=== PATIENT | female | born 1965 | race Caucasian/White ===

== ENCOUNTER 2020-02-27 13:17 | Emergency (ER) | payer OTHER, SELFPAY ==
[2020-02-27 13:29] VITALS: BP 130/89; PULSE 77; RESP 18; TEMP 37.1; O2SAT 100
--- NOTE | 2020-02-27 13:37 | ED.ABDPAIN ---
HPI - Abdominal Pain General Chief Complaint: Abdominal Pain Stated Complaint: Abd pain; nausea Time Seen by Provider: 02/27/20 13:39 Source: patient and RN notes reviewed Mode of arrival: ambulatory Limitations: no limitations History of Present Illness HPI narrative: This is a 54 years old female presents to the office for an evaluation of acute onset of right side abdominal pain since 4 AM this morning. Pain is intermittent with sharp shooting dependent on positions; associated with nausea. Coughing moving walking very exacerbated pain. Denies any urinary symptoms. Denies history of kidney stones. Rate pain 02/28. Related Data Home Medications Medication Instructions Recorded Confirmed alprazolam 0.5 mg TID PRN 02/27/20 02/27/20 amlodipine 10 mg DAILY 02/27/20 02/27/20 atorvastatin 40 mg DAILY 02/27/20 02/27/20 bupropion HCl 150 mg PO DAILY 02/27/20 02/27/20 citalopram 40 mg DAILY 02/27/20 02/27/20 furosemide 20 mg DAILY 02/27/20 02/27/20 losartan 100 mg DAILY 02/27/20 02/27/20 metoprolol succinate 50 mg PO DAILY 02/27/20 02/27/20 omeprazole 20 mg DAILY 02/27/20 02/27/20 trazodone 02/27/20 Allergies Allergy/AdvReac Type Severity Reaction Status Date / Time No Known Allergies Allergy Unknown Verified 02/27/20 13:32 Review of Systems Review of Systems: Narrative: CONSTITUTIONAL: Denies fever. Reports feeling hot ENT: Denies congestion CARDIOVASCULAR: Denies chest pain RESPIRATORY: Denies dyspnea GASTROINTESTINAL: Reports abdominal pain, nausea. Denies vomiting, diarrhea. GENITOURINARY: Denies urinary symptoms or discharge SKIN: Denies rash MUSCULOSKELETAL: Reports right upper back NEUROLOGIC: Denies lightheaded All other systems reviewed are negative, except as documented in HPI. [facility] Past Medical History Medical History (Updated 02/27/20 @ 13:54 by MINAL Choe) Depression with anxiety GERD (gastroesophageal reflux disease) HLD (hyperlipidemia) HTN (hypertension) Sleep apnea Family History Family History Father Hypertension Social History Social History Smoking status: Smoker, status unknown Alcohol intake: current Gender identity (if verbalized by the patient): Female Comments At time of signature, I agree with nursing past medical, surgical, social and family history. There is no relevant family history pertinent to the presenting complaint. Exam Narrative: Exam Narrative: GENERAL: This is a well-nourished, well-developed patient, in no apparent distress. CARDIOVASCULAR: Regular rate and rhythm without murmurs, gallops, or rubs. RESPIRATORY: Clear to auscultation. Breath sounds equal bilaterally. No wheezes, rales, or rhonchi. GASTROINTESTINAL: Abdomen soft, tenderness to palpation of right upper and lower quadrant with a little rebound tenderness, nondistended. Bowel sounds are active. Patient is guarding her stomach and appears in pain when ask to change position from sitting to lying down on stretcher. SKIN: warm, intact with no suspicious lesions or rash, good texture and turgor. NEURO: awake, alert, and oriented to person, place and time. There were no obvious focal neurologic abnormalities. Steady gait BACK: No flank tenderness. Courtney Coma Scale Eye Opening: Spontaneous 4 Courtney Coma Scale Motor: Obeys Commands 6 Courtney Coma Scale Verbal: Oriented 5 Course Vital Signs Vital signs: Vital Signs Temperature 98.8 F 02/27/20 13:29 Pulse Rate 77 02/27/20 13:29 Respiratory Rate 18 02/27/20 13:29 Blood Pressure 130/89 02/27/20 13:29 Pulse Oximetry 100 02/27/20 13:29 Temperature 98.8 F 02/27/20 13:29 Pulse Rate 77 02/27/20 13:29 Respiratory Rate 18 02/27/20 13:29 Blood Pressure 130/89 02/27/20 13:29 Pulse Oximetry 100 02/27/20 13:29 Transfer Transfered to: [facility] Transfer rationale: diagnostic test Accepti
== END 2020-02-27 13:51 | disposition short-term general hospital (02) ==
PROVIDERS: Emergency Provider Nurse Practitioner; PCP Family Medicine
DX: R10.31 Right lower quadrant pain (principal); K21.9 Gastro-esophageal reflux disease without esophagitis; E78.5 Hyperlipidemia, unspecified; I10 Essential (primary) hypertension; G47.30 Sleep apnea, unspecified; F41.9 Anxiety disorder, unspecified; F32.9 Major depressive disorder, single episode, unspecified
CPT/HCPCS: 99212; G0463

== ENCOUNTER 2020-02-27 14:12 | Emergency (ER) | payer OTHER, SELFPAY ==
--- NOTE | ~2020-02-27 | US_ITS ---
US right upper quadrant DATE: 02/27/2020 15:15 INDICATION: Right upper quadrant abdominal pain. Nausea. TECHNIQUE: Real-time imaging of the liver, gallbladder, pancreas COMPARISON: 05/27/2014 CTA abdomen FINDINGS: There are multiple dependent gallstones measuring approximately 5 mm each. There is gallbla dder wall thickening, measuring approximately 4.5 mm. Cholecystitis or chronic cholecystitis is sugge sted. Consider radionuclide hepatobiliary scan if further evaluation for acute cholecystitis is kenyon ed. No hepatic space-occupying mass lesion. Normal hepatopedal portal venous flow is noted. The pancreas is not optimally evaluated due to interference from bowel gas. IMPRESSION: Cholelithiasis and gallbladder wall thickening; consider acute versus chronic cholecystit is Reviewed, dictated and finalized at [facility]. Reviewed, dictated and finalized at [facility]. IMPRESSION: Cholelithiasis and gallbladder wall thickening; consider acute vers us chronic cholecystitis
[2020-02-27 14:15] VITALS: BP 132/79; PULSE 73; RESP 16; TEMP 35.9; O2SAT 99
[2020-02-27 14:30] LABS: Basophils Percent Auto 0.6 % (0.2-1.2); Eosinophils Absolute Auto 0.1 K/mm3 (0-0.3); Eosinophils Percent Auto 1.3 % (0-4.4); Hematocrit 38.1 % (37.0-47.0); Hemoglobin 12.8 g/dL (12.0-15.0); Immature Granulocyte Absolute 0.01 K/mm3 (0.00-0.031); Immature Granulocyte Percent A 0.2 % (0-0.5); Lymphocytes Absolute Auto 1.99 K/mm3 (0.9-3.2); Lymphocytes Percent Auto 37.5 % (18.3-44.2); Mean Corpuscular HGB Conc 33.6 g/dl (32-36); Mean Corpuscular Hemoglobin 35.7 pg (26-34); Mean Corpuscular Volume 106.1 fl (80-100); Monocytes Absolute Auto 0.5 K/mm3 (0.1-0.6); Monocytes Percent Auto 9.8 % (2.6-8.5); Neutrophils Absolute Auto 2.7 K/mm3 (1.3-6.7); Neutrophils Percent Auto 50.6 % (45.5-73.1); Platelet Count Result 294 k/mm3 (150-375); Red Blood Count 3.59 M/mm3 (4.2-5.4); Red Cell Distribution Width 13.1 % (11.5-14.5); White Blood Count 5.3 K/mm3 (4.5-10.0)
[2020-02-27 14:41] LABS: Alanine Aminotransferase 29 U/L (4-35); Albumin Level 4.4 g/dL (3.5-5.1); Alkaline Phosphatase 92 U/L (38-126); Aspartate Amino Transferase 42 U/L (14-36); Bilirubin,Total 0.3 mg/dL (0.2-1.3); Blood Urea Nitrogen 19 mg/dL (7-17); Calcium 9.1 mg/dL (8.4-10.2); Carbon Dioxide 25 mmol/L (22-30); Chloride 105 mmol/L (98-107); Estimated CRCL calculation 70 ml/min; Estimated Glomerular Filt Rate > 60; Glucose 94 mg/dL (65-105); Lipase 85 U/L (23-300); Potassium 4.1 mmol/L (3.4-5.0); Sodium 138 mmol/L (137-145)
[2020-02-27 14:44] LABS: Add Urine Microscopic? YES; Appearance Urine Clear (Clear); Bilirubin Urine Negative (Negative); Blood Urine Negative (Negative); Color Urine Yellow (Yellow); Glucose Urine UA Negative (Negative); Ketones Urine Negative (Negative); Leukocyte Esterase Ur 3+ LEU/UL (Negative); Mucus Urine Rare /lpf; Nitrate Urine Negative (Negative); Protein Urine Negative (Negative); RBC Urine 0-2 /hpf (0-2); Specific Grav Ur 1.021 (1.001-1.035); Squamous Epithelial Cell Urine Many /hpf (Few); Urobilinogen Urine Negative mg/dL (<2.0)
--- NOTE | 2020-02-27 14:53 | ED.ABDPAIN ---
HPI - Abdominal Pain General Chief Complaint: Abdominal Pain Stated Complaint: abdominal pain Time Seen by Provider: 02/27/20 14:28 Source: patient Mode of arrival: ambulatory Limitations: no limitations History of Present Illness HPI narrative: This is a 54 year old female that presents to the ER for RUQ pain since this morning. Reports sharp pain. Associated with nausea. Was seen at the urgent care for this earlier this morning and sent here for further evaluation. Denies fever, chest pain, shortness of breath, vomiting, dysuria or hematuria. Related Data Home Medications Medication Instructions Recorded Confirmed alprazolam 0.5 mg TID PRN 02/27/20 02/27/20 amlodipine 10 mg DAILY 02/27/20 02/27/20 atorvastatin 40 mg DAILY 02/27/20 02/27/20 bupropion HCl 150 mg PO DAILY 02/27/20 02/27/20 buspirone 15 mg PO BID 02/27/20 02/27/20 citalopram 40 mg DAILY 02/27/20 02/27/20 furosemide 20 mg DAILY 02/27/20 02/27/20 losartan 100 mg DAILY 02/27/20 02/27/20 metoprolol succinate 50 mg PO DAILY 02/27/20 02/27/20 omeprazole 20 mg DAILY 02/27/20 02/27/20 spironolactone 50 mg PO DAILY 02/27/20 trazodone 100 mg HS 02/27/20 02/27/20 Allergies Allergy/AdvReac Type Severity Reaction Status Date / Time No Known Allergies Allergy Unknown Verified 02/27/20 14:24 Review of Systems Review of Systems: Narrative: CONSTITUTIONAL: Denies fever CARDIOVASCULAR: Denies chest pain RESPIRATORY: Denies dyspnea. GASTROINTESTINAL: Reports abdominal pain, nausea. Denies vomiting, or diarrhea. GENITOURINARY: Denies dysuria or hematuria. All systems reviewed & are unremarkable except as noted in HPI and below PMFSH Past Medical History Medical History (Updated 02/27/20 @ 16:43 by Edwina Bhatia PA-C) Depression with anxiety GERD (gastroesophageal reflux disease) HLD (hyperlipidemia) HTN (hypertension) Sleep apnea Social History Social History Smoking status: Smoker, status unknown Alcohol intake: current Gender identity (if verbalized by the patient): Female Exam Narrative: Exam Narrative: GENERAL: Well-appearing, well-nourished, and in no acute distress. HEAD: Normocephalic, atraumatic. EYES: EOMI. CHEST: Clear to auscultation. No respiratory distress. No wheezes rales or rhonchi HEART: Regular rate and rhythm. No murmur heard. Normal peripheral pulses. ABDOMEN: Soft, nondistended, normal active bowel sounds. Tender to palpation of the right upper quadrant, without guarding. No CVA tenderness EXTREMITIES: Normal range of motion. No edema. SKIN: Warm, dry, no rash. NEURO: No focal deficits. Alert and oriented x3. PSYCH: Normal mood and affect Course Consultations Consultation #1: Spoke with surgeon, Dr. Wick about patient and work-up. Patient will be started on oral antibiotics and given pain medication. She is to follow-up outpatient. Date: 02/27/20 Time: 16:42 Vital Signs Vital signs: Vital Signs Temperature 96.7 F L 02/27/20 14:15 Pulse Rate 73 02/27/20 14:15 Respiratory Rate 16 02/27/20 14:15 Blood Pressure 132/79 02/27/20 14:15 Pulse Oximetry 99 02/27/20 14:15 Temperature 96.7 F L 02/27/20 14:15 Pulse Rate 69 02/27/20 16:12 Respiratory Rate 16 02/27/20 14:15 Blood Pressure 144/89 H 02/27/20 16:12 Pulse Oximetry 93 02/27/20 16:12 MDM - Abdominal Pain MDM Narrative Medical decision making narrative: Patient presents the emergency department for right upper quadrant pain since this morning. Patient is afebrile and nontoxic-appearing. CBC is without leukocytosis. Metabolic panel with mildly elevated AST, otherwise no acute changes. UA without evidence of infection. Right upper quadrant ultrasound shows cholelithiasis and gallbladder wall thickening. Patient given IV pain medication and antiemetic with improvement. Spoke with surgeon, Dr. Wick about patient and work-up. Patient will be started on oral antibiotics
--- NOTE | 2020-02-27 15:06 | PC.NURSE ---
Pt to imaging
[2020-02-27] MEDS: MORPHINE SULFATE 4 MG/ML INJ IV PUSH (15:13)
[2020-02-27] MEDS: ONDANSETRON INJ 4 MG/2 ML VIAL IV PUSH (15:14)
[2020-02-27 16:12] VITALS: BP 144/89; PULSE 69; O2SAT 93
[2020-02-27 16:58] VITALS: BP 140/70; PULSE 70; RESP 20; O2SAT 99
== END 2020-02-27 17:00 | disposition home or self-care (01) ==
PROVIDERS: Emergency Provider Family Medicine; PCP Family Medicine
DX: K80.50 Calculus of bile duct without cholangitis or cholecystitis without obstruction (principal); F41.8 Other specified anxiety disorders; K21.9 Gastro-esophageal reflux disease without esophagitis; E78.5 Hyperlipidemia, unspecified; I10 Essential (primary) hypertension; G47.30 Sleep apnea, unspecified
CPT/HCPCS: 36415; 76705; 80053; 81001; 83690; 85025; 96365; 96375; 99284; J0131; J2270; J2405

== ENCOUNTER 2020-03-05 08:24 | Outpatient (CLI) | payer OTHER, SELFPAY ==
--- NOTE | 2020-03-05 08:27 | ECG_ITS ---
Measurements Intervals [place] Rate: 63 P: 12 WV: 181 QRS: -1 QRSD: 88 T: 12 QT: 412 QTc: 424 Interpretive Statements SINUS RHYTHM BORDERLINE T WAVE ABNORMALITY- ANTERIOR LEADS BORDERLINE ECG Electronically Signed On 03-05-2020 8:58:13 CDT by Kelvin Nash D.O.
[2020-03-05 08:45] LABS: Hematocrit 38.4 % (37.0-47.0); Hemoglobin 13.3 g/dL (12.0-15.0); Mean Corpuscular HGB Conc 34.6 g/dl (32-36); Mean Corpuscular Hemoglobin 36.2 pg (26-34); Mean Corpuscular Volume 104.6 fl (80-100); Mean Platelet Volume 9.8 fl (7.4-10.4); Platelet Count Result 270 k/mm3 (150-375); Red Blood Count 3.67 M/mm3 (4.2-5.4); Red Cell Distribution Width 12.6 % (11.5-14.5); White Blood Count 4.1 K/mm3 (4.5-10.0)
[2020-03-05 09:19] LABS: Alanine Aminotransferase 29 U/L (4-35); Alkaline Phosphatase 73 U/L (38-126); Amylase 56 U/L (30-110); Aspartate Amino Transferase 40 U/L (14-36); Bilirubin,Total 0.2 mg/dL (0.2-1.3); Lipase 47 U/L (23-300)
[2020-03-05 09:21] LABS: Blood Urea Nitrogen 22 mg/dL (7-17); Calcium 9.2 mg/dL (8.4-10.2); Carbon Dioxide 28 mmol/L (22-30); Chloride 102 mmol/L (98-107); Estimated Glomerular Filt Rate 58; Glucose 92 mg/dL (65-105); Potassium 4.4 mmol/L (3.4-5.0); Sodium 137 mmol/L (137-145)
== END 2020-03-05 08:25 | disposition home or self-care (01) ==
LOC: ANHSURGERY 08:27
PROVIDERS: Anesthesiology; PCP Family Medicine; Visit Provider Surgery
DX: Z01.818 Encounter for other preprocedural examination (principal); K81.9 Cholecystitis, unspecified; I10 Essential (primary) hypertension; K80.10 Calculus of gallbladder with chronic cholecystitis without obstruction
CPT/HCPCS: 36415; 80048; 80076; 82150; 83690; 85027; 93005

== ENCOUNTER 2020-03-07 00:14 | Outpatient (CLI) | payer OTHER, SELFPAY ==
[2020-03-07 19:23] LABS: SARS-CoV-2 RNA PCR Negative
== END 2020-03-07 00:15 | disposition home or self-care (01) ==
LOC: ANHCOVIDDT 00:16
PROVIDERS: PCP Family Medicine; Visit Provider Surgery
DX: Z01.818 Encounter for other preprocedural examination (principal); Z11.59 Encounter for screening for other viral diseases
CPT/HCPCS: 87635; C9803; U0003

== ENCOUNTER 2020-03-10 02:06 | Day surgery (SDC) | payer OTHER, SELFPAY ==
[2020-03-04 10:04] VITALS: BMI 32.5
[2020-03-10] VITALS (8 sets, daily range): BP systolic 101–130; BP diastolic 53–79; PULSE 70–88; RESP 13–20; TEMP 36.7–36.8; O2SAT 95–100
--- NOTE | 2020-03-10 08:27 | WPDANESEPPF ---
Anes - Initial Pre Proc Eval Procedure: Operation Date: 03/10/20 12:00 Proposed Procedures p Laparoscopic Cholecystectomy, Possible Intraoperative Cholangiogram, Possible Open - Silverio Wick MD Date/Time: 03/10/20 08:27 Surgeon: Silverio Wick MD Pre Op Diagnosis: Chronic Cholecystitis with Cholelithiasis Patient Data Age: 54 Gender: F Height: 1.63 m Weight: 86.18 kg Allergies Allergy/AdvReac Type Severity Reaction Status Date / Time No Known Allergies Allergy Unknown Verified 03/10/20 09:56 Home Medications Medication Instructions Recorded Confirmed Type alprazolam 0.5 mg PO TID PRN 02/27/20 03/10/20 History amlodipine 10 mg PO DAILY 02/27/20 03/10/20 History atorvastatin 40 mg PO DAILY 02/27/20 03/10/20 History bupropion HCl 150 mg PO DAILY 02/27/20 03/10/20 History buspirone 15 mg PO BID 02/27/20 03/10/20 History citalopram 40 mg DAILY 02/27/20 03/10/20 History furosemide 20 mg DAILY 02/27/20 03/10/20 History losartan 100 mg DAILY 02/27/20 03/10/20 History metoprolol succinate 50 mg PO DAILY 02/27/20 03/10/20 History omeprazole 20 mg DAILY 02/27/20 03/10/20 History spironolactone 50 mg PO DAILY 02/27/20 03/10/20 History trazodone 100 mg HS 02/27/20 03/10/20 History hydrocodone 5 mg-acetaminophen 325 1 tablet PO Q6H PRN #14 tablet 03/06/20 03/10/20 Rx mg tablet Patient hx anesthesia problems: none Family hx anesthesia problems: none PMFSH Past Medical History Medical History (Updated 03/10/20 @ 08:28 by Jorge Luis Cox MD) Depression with anxiety GERD (gastroesophageal reflux disease) HLD (hyperlipidemia) HTN (hypertension) Obesity Sleep apnea Surgical History Surgical History History of conization of cervix Social History Social History Smoking status: Never smoker Alcohol intake: current Drinks per week: 4 Substance use: never 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 Questions were solicited and answers provided to the satisfaction of the patient/family/POA.
[2020-03-10] MEDS: LACTATED RINGERS 1,000 ML 30 ML IV CONT ×2 (10:15→16:10)
[2020-03-10] MEDS: KETOROLAC 15 MG/ML VIAL (*BKC) IV PUSH (10:25)
--- NOTE | 2020-03-10 11:51 | SUR.PREOP ---
pt informed of delay w/surgeon. comfort measures offered. acknowledges understanding.
--- NOTE | 2020-03-10 13:33 | SUR.PREOP ---
ambulated pt to bathroom. comfort measures provided. update r/t surgery start time provided/acknowledges understanding.
--- NOTE | 2020-03-10 14:30 | WPDHPUPDATE1 ---
History and Physical Update Update Date/Time: 03/10/20 14:30 History and Physical has been reviewed, including an updated exam of the patient. There are NO changes in the patient's condition. Risks, benefits, and alternatives have been discussed and questions answered. Patient agrees to proceed with procedure.
[2020-03-10] MEDS: ceFAZolin 2 GM/D5W 50 ML 2 GM/50 ML BAG IVPB (14:31)
[2020-03-10] MEDS: BUPIVACAINE/EPINEPHRINE 0.5% 10 ML VIAL 20 ML INFILTRATE (15:02)
--- NOTE | 2020-03-10 16:08 | P.OP_ITS ---
Procedure Note - Detailed Date of procedure: 03/10/20 Pre-op diagnosis: Chronic Cholecystitis with Cholelithiasis Chronic Cholecystitis with Cholelithiasis Post-op diagnosis: same Procedure performed: Laparoscopic Cholecystectomy Description of procedure: Patient was seen preoperatively in the holding area and risks, benefits and alternatives confirmed. Patient was taken to the operating room and general anesthesia was induced. A time out was then preformed with the surgery team confirming patient and site of surgery. The abdomen was prepped and draped in the usual sterile fashion. Incision was made just below the umbilicus with an 11 blade knife. I placed 2 stay sutures of O- Vicryl on either side of the mid- line fascia beneath the umbilicus and was then able to slide in the Luis cannula through the fascial defect into the peritoneum. First under low flow and then under high flow the abdomen was insufflated with carbon dioxide never exceeding a pressure of 14. Three 5 mm trocars were then introduced under direct vision. The following trocars were introduced under direct vision: a 5 mm in the epigastrium and two 5 mm trocars along the right costal margin laterally in the subcostal area. There were no significant omental adhesions to the underside of the gallbladder. I then carefully used the L-shaped cautery and the [place] dissector to dissect out the triangle of Calot. I then was able to dissect out both the cystic duct and cystic artery and identify a window of safety. The gall bladder was grasped and the cystic duct and artery were dissected free and clipped with an 5 mm endo-clip electrical and radio mock up mechanic. The cystic duct and artery were clipped with use of 2 clips on the patient's side 1 on the gallbladder side utilizing a 5 mm endoclip-electrical and radio mock up mechanic. There is also noted to be a posterior branch of the cystic artery somewhat cephalad and up the gallbladder bed from the anterior cystic artery branch. The cystic duct was then transected. The cystic artery was also transected at this point. The gall bladder was removed using electrocautery and then removed from the abdomen using a large 10 mm grasper via the umbilical incision. The trocars were removed visualizing hemostasis and the remaining gas evacuated. The large trocar site at the umbilicus was closed with use of the 2 stay sutures of 0 Vicryl mentioned above and also two #1 Vicryl sutures passed with the Miles cone and suture Passer. The 2 stay sutures mentioned above on either side of the fascia were also tied together to help approximate this midline fascia. Further local anesthetic was placed into each incision for postop pain control. The skin incisions were closed with subcuticular suture of 4-0 Monocryl. Surgical glue then was applied to all the incisions. Patient tolerated the procedure well was taken to the recovery room in good condition. Anesthesia: GETA Surgeon: Silverio Wikc MD Latrine Cleaner: Melanie CARTER, OR heel sprayer first Estimated blood loss (mL): 20 Drains: No Packing: No Pathology: yes (Gallbladder) Complications: No immediate complications Condition: stable Disposition: PACU Findings: Gallbladder was normal in appearance with a dark grayish blue color. After removal there were a few small 4-5 mm gallstones palpable within the gallbladder. There was no significant spillage of bile during the procedure.
[2020-03-10] MEDS: ONDANSETRON INJ 4 MG/2 ML VIAL IV PUSH (16:39)
== END 2020-03-10 18:27 | disposition home or self-care (01) ==
PROVIDERS: PCP Family Medicine; Visit Provider Surgery
PROC: 0FT44ZZ Resection of Gallbladder, Percutaneous Endoscopic Approach (ICD-10-PCS; CPT 47562; principal; 2020-03-10 12:00)
DX: K80.10 Calculus of gallbladder with chronic cholecystitis without obstruction (principal); I10 Essential (primary) hypertension; E78.5 Hyperlipidemia, unspecified; K21.9 Gastro-esophageal reflux disease without esophagitis; G47.33 Obstructive sleep apnea (adult) (pediatric); E66.9 Obesity, unspecified; Z68.31 Body mass index [BMI] 31.0-31.9, adult; F41.8 Other specified anxiety disorders; Z79.899 Other long term (current) drug therapy; Z79.891 Long term (current) use of opiate analgesic
CPT/HCPCS: 47562; 88304; J0330; J0690; J1885; J2250; J2405; J2704; J3010; J7120

== ENCOUNTER 2020-03-21 09:11 | Outpatient (CLI) | payer OTHER, SELFPAY ==
[2020-03-21 09:51] LABS: Basophils Percent Auto 0.6 % (0.2-1.2); Eosinophils Absolute Auto 0.2 K/mm3 (0-0.3); Eosinophils Percent Auto 3.3 % (0-4.4); Hematocrit 37.2 % (37.0-47.0); Hemoglobin 12.4 g/dL (12.0-15.0); Immature Granulocyte Absolute 0.01 K/mm3 (0.00-0.031); Immature Granulocyte Percent A 0.2 % (0-0.5); Lymphocytes Absolute Auto 2.24 K/mm3 (0.9-3.2); Lymphocytes Percent Auto 46.7 % (18.3-44.2); Mean Corpuscular HGB Conc 33.3 g/dl (32-36); Mean Corpuscular Hemoglobin 35.3 pg (26-34); Mean Platelet Volume 9.8 fl (7.4-10.4); Monocytes Absolute Auto 0.4 K/mm3 (0.1-0.6); Neutrophils Absolute Auto 1.9 K/mm3 (1.3-6.7); Neutrophils Percent Auto 40.2 % (45.5-73.1); Platelet Count Result 328 k/mm3 (150-375); Red Blood Count 3.51 M/mm3 (4.2-5.4); Red Cell Distribution Width 12.7 % (11.5-14.5); White Blood Count 4.8 K/mm3 (4.5-10.0)
[2020-03-21 10:09] LABS: Alanine Aminotransferase 40 U/L (4-35); Alkaline Phosphatase 106 U/L (38-126); Aspartate Amino Transferase 41 U/L (14-36); Bilirubin,Total 0.3 mg/dL (0.2-1.3)
== END 2020-03-21 09:12 | disposition home or self-care (01) ==
LOC: ANHLAB 09:13
PROVIDERS: PCP Family Medicine; Visit Provider Nurse Practitioner Family
DX: R10.11 Right upper quadrant pain (principal)
CPT/HCPCS: 36415; 80076; 85025

== ENCOUNTER 2020-04-04 21:21 | Emergency (ER) | payer OTHER, SELFPAY ==
--- NOTE | 2020-04-04 21:44 | PC.NURSE ---
Patient left ED prior to triage. No explanation given
== END 2020-04-04 21:44 | disposition left against medical advice (07) ==
PROVIDERS: PCP Family Medicine
DX: Z53.21 Procedure and treatment not carried out due to patient leaving prior to being seen by health care provider (principal)
CPT/HCPCS: 99199

== ENCOUNTER 2021-03-30 10:04 | Emergency (ER) | payer OTHER, SELFPAY ==
--- NOTE | 2021-03-30 10:12 | ED.SKABFB ---
HPI - Skin/Abscess/Foreign Bdy General Chief complaint: Skin/Abscess/Foreign Body Stated complaint: Rash Time Seen by Provider: 03/30/21 10:13 Source: patient and RN notes reviewed Mode of arrival: ambulatory Limitations: no limitations History of Present Illness HPI narrative: 55-year-old female presents to the [facility] with complaints of a rash to the right posterior shoulder since Tuesday, 3 days. Patient states that the pain radiates down her arm and into her neck. No treatment prior to arrival. She denies fevers. No chest pain or shortness of breath. No abdominal pain. Related Data Home Medications Medication Instructions Recorded Confirmed alprazolam 0.5 mg PO TID PRN 02/27/20 03/31/20 amlodipine 10 mg PO DAILY 02/27/20 03/31/20 atorvastatin 40 mg PO DAILY 02/27/20 03/31/20 bupropion HCl 150 mg PO DAILY 02/27/20 03/31/20 buspirone 15 mg PO BID 02/27/20 03/31/20 citalopram 40 mg DAILY 02/27/20 03/31/20 furosemide 20 mg DAILY 02/27/20 03/31/20 losartan 100 mg DAILY 02/27/20 03/31/20 metoprolol succinate 50 mg PO DAILY 02/27/20 03/31/20 omeprazole 20 mg DAILY 02/27/20 03/31/20 spironolactone 50 mg PO DAILY 02/27/20 03/31/20 trazodone 100 mg HS 02/27/20 03/31/20 Allergies Allergy/AdvReac Type Severity Reaction Status Date / Time No Known Allergies Allergy Unknown Verified 03/31/20 10:25 Review of Systems Review of Systems: All systems reviewed & are unremarkable except as noted in HPI and below Constitutional: Constitutional: Reports no additional constitutional complaints, Denies chills and Denies fever(s) Eyes: Eyes: Reports no additional eye complaints ENT: Reports system reviewed and no additional complaints, except as documented Cardiovascular: Cardiovascular: Reports no additional cardiovascular complaints Respiratory: Respiratory: Reports no additional respiratory complaints Musculoskeletal: Musculoskeletal: Reports no additional musculoskeletal complaints Integumentary/Breasts: Skin/Breast: Reports as per HPI and Reports rash (Right posterior shoulder) Neurologic: Reports system reviewed and no additional complaints, except as documented Psychiatric: Psychiatric: Reports no additional psychiatric complaints Endocrine: Endocrine: Reports no additional endocrine complaints Allergic/Immunologic: Allergic/Immunologic: Reports no additional allergic/immunologic complaints [facility] Past Medical History Medical History (Updated 03/30/21 @ 10:18 by Wendy Perez) Chronic cholecystitis Depression with anxiety GERD (gastroesophageal reflux disease) HLD (hyperlipidemia) HTN (hypertension) Obesity Sleep apnea Surgical History Surgical History History of conization of cervix Hx laparoscopic cholecystectomy Family History Family History Father Hypertension Mother CHF (congestive heart failure) Social History Social History Smoking status: Never smoker Alcohol intake: current Drinks per week: 4 Substance use: never 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 There is no relevant family history pertinent to the patient complaint. Exam Const: General: healthy appearing, no acute distress and alert Nutritional Appearance: well nourished Orientation/consciousness: patient oriented x3 Limitations: no limitations HENMT: Head: normal to inspection Eyes: Pupils: Equal, round and reactive pupils present Neck: Neck: normal visual inspection Chest: Chest palpation & inspection: normal inspection of the chest Resp: Effort & Inspection: normal respiratory effort Auscultation: clear to
[2021-03-30 10:15] VITALS: BP 131/80; PULSE 80; RESP 16; TEMP 36.6; O2SAT 99
== END 2021-03-30 10:21 | disposition home or self-care (01) ==
PROVIDERS: Emergency Provider Nurse Practitioner; PCP Family Medicine
DX: B02.9 Zoster without complications (principal); K21.9 Gastro-esophageal reflux disease without esophagitis; E78.5 Hyperlipidemia, unspecified; I10 Essential (primary) hypertension; G47.30 Sleep apnea, unspecified; E66.9 Obesity, unspecified; Z68.30 Body mass index [BMI] 30.0-30.9, adult
CPT/HCPCS: 99213; G0463

== ENCOUNTER 2021-04-17 09:38 | Emergency (ER) | payer OTHER, SELFPAY ==
--- NOTE | ~2021-04-17 | XR_ITS ---
EXAMINATION: XR knee LT 3V DATE: 04/17/2021 11:14 INDICATION: Left knee pain TECHNIQUE: AP, lateral and sunrise views of the left knee were obtained COMPARISON: None. FINDINGS: Alignment is normal. No fracture. Joint spaces appear normal. No joint effusion/layering lipohemarth rosis. Soft tissues are unremarkable. IMPRESSION: 1. Negative left knee radiographs. Reviewed, dictated and finalized at location [facility].
[2021-04-17 09:48] VITALS: BP 110/77; PULSE 80; RESP 16; TEMP 36.2; O2SAT 99
--- NOTE | 2021-04-17 10:54 | ED.LOWEXIN ---
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 She has been managing for the last 15 or 16 months by positioning of her leg while she is sitting typing and by her stance and massage therapy as well as taking 400 mg of Motrin multiple times a day but she is got to the point where she cannot walk any distance without pain Related Data Home Medications Medication Instructions Recorded Confirmed alprazolam 0.5 mg PO TID PRN 02/27/20 03/31/20 amlodipine 10 mg PO DAILY 02/27/20 03/31/20 atorvastatin 40 mg PO DAILY 02/27/20 03/31/20 bupropion HCl 150 mg PO DAILY 02/27/20 03/31/20 buspirone 15 mg PO BID 02/27/20 03/31/20 citalopram 40 mg DAILY 02/27/20 03/31/20 furosemide 20 mg DAILY 02/27/20 03/31/20 losartan 100 mg DAILY 02/27/20 03/31/20 metoprolol succinate 50 mg PO DAILY 02/27/20 03/31/20 omeprazole 20 mg DAILY 02/27/20 03/31/20 spironolactone 50 mg PO DAILY 02/27/20 03/31/20 trazodone 100 mg HS 02/27/20 03/31/20 cholestyramine (with sugar) ea 04/17/21 hydroxyzine HCl 04/17/21 Allergies Allergy/AdvReac Type Severity Reaction Status Date / Time No Known Allergies Allergy Unknown Verified 03/31/20 10:25 Review of Systems Review of Systems: CONSTITUTIONAL: Denies fever, chills, sweats. EYES: Denies visual changes, redness, discharge. ENT: Denies rhinorrhea, congestion, sore throat, otalgia. CARDIOVASCULAR: Denies chest pain, palpitations, edema. RESPIRATORY: Denies dyspnea, wheezing, cough GASTROINTESTINAL: Denies abdominal pain, nausea, vomiting, diarrhea. GENITOURINARY: Denies dysuria, hematuria, abnormal discharge SKIN: Denies rash or itching. NEUROLOGIC: Denies numbness, or focal weakness. PSYCHIATRIC: Denies anxiety or depression. 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 There is no relevant family history pertinent to the presenting complaint. Exam Narrative: GENERAL: This is a well-nourished, well-developed patient, in moderate distress. Painful walking HEAD: normocephalic, atraumatic. EYES: Sclera clear/white. Vision is grossly intact. EARS: External ears normal. Hearing grossly intact. NOSE: External nose normal without nasal discharge, nares without redness, no rhinorrhea. THROAT: Mucous membranes moist, NECK: Neck supple, CARDIOVASCULAR: Regular rate and rhythm without murmurs, gallops, or rubs. RESPIRATORY: Clear to auscultation. Breath sounds equal bilaterally. No wheezes, rales, or rhonchi. GASTROINTESTINAL: Abdomen soft, SKIN: warm, intact with no suspicious lesions or rash, good carly
== END 2021-04-17 11:28 | disposition home or self-care (01) ==
PROVIDERS: Emergency Provider Nurse Practitioner; PCP Family Medicine
DX: M25.562 Pain in left knee (principal); K21.9 Gastro-esophageal reflux disease without esophagitis; E78.5 Hyperlipidemia, unspecified; I10 Essential (primary) hypertension; E66.9 Obesity, unspecified; Z68.31 Body mass index [BMI] 31.0-31.9, adult; F41.8 Other specified anxiety disorders
CPT/HCPCS: 73562; 99213; G0463; L1830

== ENCOUNTER 2021-04-22 09:26 | Outpatient (CLI) | payer OTHER, SELFPAY ==
--- NOTE | ~2021-04-22 | MM_ITS ---
EXAMINATION: MM screening david BI w ranjith HISTORY: Screening TECHNIQUE: Craniocaudal and mediolateral oblique 3-D tomosynthesis images were obtained and synthetic 2-D images were generated. CAD analysis was submitted and interpreted. COMPARISON: Comparison to multiple prior studies sequentially, with oldest reviewed study dated 08/2013. BREAST PARENCHYMAL COMPOSITION: There are scattered areas of fibroglandular density. FINDINGS: There are changes of prior breast reduction surgery. There is no evidence of suspicious mas s, calcification, or architectural distortion to suggest malignancy in either breast. There has been no suspicious interval change. IMPRESSION: 1. No mammographic evidence of malignancy. 2. Recommend routine screening mammography in one year. BI-RADS Category 1: Negative Reviewed, dictated and finalized at location A.
== END 2021-04-22 09:27 | disposition home or self-care (01) ==
LOC: ANHIMG 09:27
PROVIDERS: PCP Family Medicine; Visit Provider Family Medicine
DX: Z12.31 Encounter for screening mammogram for malignant neoplasm of breast (principal)
CPT/HCPCS: 77063; 77067

== ENCOUNTER 2021-08-21 07:15 | Outpatient (CLI) | payer OTHER, SELFPAY ==
--- NOTE | ~2021-08-21 | MR_ITS ---
EXAMINATION: MR knee LT wo con DATE: 08/21/2021 08:14 INDICATION: Left knee pain. TECHNIQUE: Magnetic resonance imaging (MRI) of the left knee was performed without intravenous contra st. Sequences included axial PD-weighted FS FSE, coronal PD-weighted FSE and PD-weighted FS FSE, sagi ttal PD-weighted FSE, and sagittal T2-weighted FS FSE. COMPARISON: Left knee radiographs 06/08/2021 FINDINGS: Medial compartment: There is a complex tear of body and posterior horn of medial meniscus. Tibial cartilage is normal. Th ere is shallow partial-thickness cartilage loss of femoral condyle laterally. Lateral compartment: There is free edge fraying of body of lateral meniscus. Lateral compartment cartilage is normal. Patellofemoral compartment: There is full-thickness cartilage loss of patellar medial facet and median ridge with mild subchondra l edema-like marrow signal intensity. There is partial-thickness cartilage loss of central trochlea. Ligaments and tendons: The anterior and posterior cruciate ligaments are normal. Medial collateral ligament is normal. There are changes of prior sprain of fibular collateral ligament characterized increased signal intensity proximally. There is mild patellar tendinopathy. Fluid: There is a small knee joint effusion. There is a small Christiansen's cyst. There is mild prepatellar and rivera perficial infrapatellar bursitis. IMPRESSION: 1. Severe chondrosis of patellofemoral compartment and mild chondrosis of medial compartment. 2. Tear of medial meniscus. 3. Small knee joint effusion. Reviewed, dictated and finalized at location A. 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 Severe chondrosis of patellofemoral compartment and mild chondrosis of media l compartment. 2. Tear of medial meniscus. 3. Small knee joint effusion.
== END 2021-08-21 07:16 | disposition home or self-care (01) ==
LOC: ANHIMG 07:22
PROVIDERS: PCP Nurse Practitioner Family; Visit Provider Nurse Practitioner Family
DX: M25.562 Pain in left knee (principal); G89.29 Other chronic pain; M22.2X2 Patellofemoral disorders, left knee; S83.242A Other tear of medial meniscus, current injury, left knee, initial encounter; M25.462 Effusion, left knee
CPT/HCPCS: 73721

== ENCOUNTER 2021-09-07 19:27 | Emergency (ER) | payer OTHER, SELFPAY ==
--- NOTE | ~2021-09-07 | XR_ITS ---
EXAMINATION: XR chest 2V DATE: 09/07/2021 19:46 INDICATION: Chest pain. TECHNIQUE: Frontal and lateral views of the chest were obtained. COMPARISON: Chest 2 views 02/16/2016, CT abdomen 05/27/2014 FINDINGS: There is no pneumonia, pleural effusion, or pneumothorax. Cardiomegaly is noted. IMPRESSION: 1. Cardiomegaly. Reviewed, dictated and finalized at location A. E REPAIRER IMPRESSION: 1. Cardiomegaly.
--- NOTE | 2021-09-07 19:34 | ECG_ITS ---
Measurements Intervals [place] Rate: 66 P: 23 FL: 179 QRS: 1 QRSD: 86 T: 13 QT: 417 QTc: 438 Interpretive Statements SINUS RHYTHM LOW QRS VOLTAGE IN PRECORDIAL LEADS CONSIDER INFERIOR INFARCT, AGE INDETERMINATE BORDERLINE ST-T WAVE ABNORMALITY- ANTERIOR LEADS BASELINE WANDER- II, III ABNORMAL ECG Electronically Signed On 09-07-2021 20:10:59 TUB RIDER by Kelvin Nash D.O.
--- NOTE | 2021-09-07 19:39 | PC.NURSE ---
Pt to XY at this time.
[2021-09-07 19:53] VITALS: BP 140/76; PULSE 63; RESP 16; TEMP 36.1; O2SAT 98
[2021-09-07 20:16] LABS: Basophils Percent Auto 0.3 % (0.2-1.2); Eosinophils Absolute Auto 0.2 K/mm3 (0-0.3); Eosinophils Percent Auto 2.3 % (0-4.4); Hematocrit 39.3 % (37.0-47.0); Hemoglobin 13.2 g/dL (12.0-15.0); Immature Granulocyte Absolute 0.02 K/mm3 (0.00-0.031); Immature Granulocyte Percent A 0.3 % (0-0.5); Lymphocytes Absolute Auto 2.76 K/mm3 (0.9-3.2); Lymphocytes Percent Auto 41.7 % (18.3-44.2); Mean Corpuscular HGB Conc 33.6 g/dl (32-36); Mean Corpuscular Hemoglobin 34.8 pg (26-34); Mean Corpuscular Volume 103.7 fl (80-100); Mean Platelet Volume 9.5 fl (7.4-10.4); Monocytes Absolute Auto 0.5 K/mm3 (0.1-0.6); Monocytes Percent Auto 6.8 % (2.6-8.5); Neutrophils Absolute Auto 3.2 K/mm3 (1.3-6.7); Neutrophils Percent Auto 48.6 % (45.5-73.1); Platelet Count Result 265 k/mm3 (150-375); Red Blood Count 3.79 M/mm3 (4.2-5.4); Red Cell Distribution Width 12.5 % (11.5-14.5); White Blood Count 6.6 K/mm3 (4.5-10.0)
[2021-09-07 20:20] LABS: Alanine Aminotransferase 35 U/L (4-35); Albumin Level 4.3 g/dL (3.5-5.1); Alkaline Phosphatase 86 U/L (38-126); Anion Gap 8 mmol/L (8-16); Aspartate Amino Transferase 46 U/L (14-36); Bilirubin,Total 0.4 mg/dL (0.2-1.3); Blood Urea Nitrogen 13 mg/dL (7-17); Calcium 9.7 mg/dL (8.4-10.2); Carbon Dioxide 25 mmol/L (22-30); Chloride 102 mmol/L (98-107); Estimated CRCL calculation 58 ml/min; Estimated Glomerular Filt Rate 57; Glucose 95 mg/dL (65-110); Lipase 55 U/L (23-300); Potassium 4.2 mmol/L (3.4-5.0); Prothrombin Time 12.8 Seconds (11.1-14.7); Sodium 135 mmol/L (137-145)
[2021-09-07 20:22] LABS: Partial Thromboplastin Time 24.9 SECONDS (22.3-36.8)
[2021-09-07 20:32] LABS: Troponin I < 0.012 ng/mL (0.000-0.034)
[2021-09-07 21:45] VITALS: BP 114/67; PULSE 70; RESP 18; O2SAT 100
[2021-09-07 23:41] LABS: Troponin I < 0.012 ng/mL (0.000-0.034)
[2021-09-08 00:08] VITALS: BP 130/72; PULSE 68; RESP 18; O2SAT 100
--- NOTE | 2021-09-08 02:15 | ED.GENADULT ---
HPI - General Adult General Chief complaint: Chest Pain Stated complaint: chest pain Time Seen by Provider: 09/08/21 01:51 History of Present Illness HPI narrative: Patient is a 56-year-old female who presents to the ER with reports of pain in her chest and back. Ongoing for last couple of days. Improves with ibuprofen and worsens when it wears off. Patient has had frequent cough related to a cold she has had. She had a negative COVID test. No fevers or chills or sweats. Feels like she has congestion in her chest and cannot get out. No exertional chest pain. She also gets tightness in her back/neck causes tingling in the left hand intermittently. No known trauma. No reported injury. Pain just is worse also with direct palpation. Related Data Home Medications Medication Instructions Recorded Confirmed alprazolam 0.5 mg PO TID PRN 02/27/20 06/08/21 amlodipine 10 mg PO DAILY 02/27/20 06/08/21 atorvastatin 40 mg PO DAILY 02/27/20 06/08/21 bupropion HCl 150 mg PO DAILY 02/27/20 06/08/21 buspirone 15 mg PO BID 02/27/20 06/08/21 citalopram 40 mg DAILY 02/27/20 06/08/21 furosemide 20 mg DAILY 02/27/20 06/08/21 losartan 100 mg DAILY 02/27/20 06/08/21 metoprolol succinate 50 mg PO DAILY 02/27/20 06/08/21 omeprazole 20 mg DAILY 02/27/20 06/08/21 spironolactone 50 mg PO DAILY 02/27/20 06/08/21 trazodone 100 mg HS 02/27/20 06/08/21 cholestyramine (with sugar) ea 04/17/21 06/08/21 hydroxyzine HCl 04/17/21 06/08/21 Allergies Allergy/AdvReac Type Severity Reaction Status Date / Time No Known Allergies Allergy Unknown Verified 09/07/21 19:57 Review of Systems Review of Systems: All systems reviewed & are unremarkable except as noted in HPI and below Constitutional: Constitutional: Denies chills, Reports fatigue and Denies fever(s) ENT: Denies nasal congestion and Reports sore throat Cardiovascular: Cardiovascular: Reports chest pain, Denies rapid heart rate and Denies radiating jaw, neck or arm pain Respiratory: Respiratory: Reports chest congestion, Reports cough, Denies dyspnea and Denies wheezing Gastrointestinal: Gastrointestinal: Denies abdominal pain, Denies nausea and Denies vomiting Musculoskeletal: Musculoskeletal: Reports back pain, Reports myalgias and Reports muscle cramps Neurologic: Denies headache(s), Denies focal weakness and Reports numbness PMFSH Past Medical History Medical History Chondromalacia of knee Chronic cholecystitis Depression with anxiety GERD (gastroesophageal reflux disease) HLD (hyperlipidemia) HTN (hypertension) Left knee DJD Left knee pain Medial meniscus tear Obesity Sleep apnea Surgical History Surgical History History of conization of cervix Hx laparoscopic cholecystectomy Family History Family History Father Hypertension Mother CHF (congestive heart failure) Social History Social History Alcohol intake: current Drinks per week: 4 Substance use: never 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 HEAD: Normocephalic, atraumatic. NECK: Supple. CHEST: Clear to auscultation. No respiratory distress. Tender palpation anterior chest wall bilaterally and over the sternum with light palpation to test. HEART: Regular rate and rhythm. Normal peripheral pulses. ABDOMEN: Soft, nontender, nondistended. EXTREMITIES: Normal range of motion. No edema. SKIN: Warm, dry, no rash. NEURO: Alert and oriented x3. PSYCH: Normal mood and affect. Course Course Emergency Course: Patient service only has musculoskeletal pain. Also may have a component of bronchitis with frequent coughing. Neb
[2021-09-08 02:16] VITALS: PULSE 59; RESP 12
[2021-09-08] MEDS: HYDROcodone/acetaminophen (*CRX) 5-325 MG TABLET 1 TAB PO (02:18)
[2021-09-08] MEDS: ALBUTEROL SULFATE NEB 2.5 MG/0.5 ML INH 5 MG INHALATION (02:28)
[2021-09-08] MEDS: IPRATROPIUM BR 0.02% INH SOLN 0.5 MG/2.5 ML VIAL INHALATION (02:28)
[2021-09-08 02:29] VITALS: PULSE 53; RESP 11
[2021-09-08 03:52] VITALS: BP 107/69; PULSE 60; RESP 18; O2SAT 95
== END 2021-09-08 03:40 | disposition home or self-care (01) ==
PROVIDERS: Emergency Provider Emergency Medicine; PCP Family Medicine
DX: J40 Bronchitis, not specified as acute or chronic (principal); R07.89 Other chest pain; K21.9 Gastro-esophageal reflux disease without esophagitis; E78.5 Hyperlipidemia, unspecified; I10 Essential (primary) hypertension; M17.12 Unilateral primary osteoarthritis, left knee; G47.30 Sleep apnea, unspecified; F41.8 Other specified anxiety disorders; I51.7 Cardiomegaly; R94.31 Abnormal electrocardiogram [ECG] [EKG]
CPT/HCPCS: 36415; 71046; 80053; 83690; 84484; 85025; 85610; 85730; 93005; 94640; 99284; A9270

== ENCOUNTER 2021-12-02 09:41 | Outpatient (CLI) | payer OTHER, SELFPAY ==
--- NOTE | 2021-12-02 | ECHO_ITS ---
Patient Info Name: Peggy Martinez Age: 56 years : 1965 Gender: Female Ht: 64 in Wt: 190 lbs BSA: 2.01 m2 HR: 64 bpm BP: 104 / 73 mmHg Heart Rhythm: Sinus Rhythm Exam Date: 12/02/2021 10:41 AM Exam Location: [facility] Patient Status: Outpatient Admit Date: 12/02/2021 Staff Ordering Physician: FaithTracey Curatorial Assistant: Noam Burns, YAZ, RT Attending Provider: PieroTracey Exam Type: CA echo doppler color flow Study Info Indications R94.31 - Abnormal electrocardiogram ECG EKG Complete two-dimensional, color flow and Doppler transthoracic echocardiogram is performed. Strain analysis performed. Summary 1. Complete two-dimensional, color flow and Doppler transthoracic echocardiogram is performed. 2. Left ventricular chamber dimension is normal. 3. Left ventricular systolic function is normal, estimated at 60-65%. 4. There is mildly increased left ventricular wall thickness. 5. The left ventricular diastolic function is grade I diastolic dysfunction. 6. Global longitudinal strain is normal at -18 %. 7. The basal inferoseptal, and mid inferoseptal are hypokinetic. 8. Left atrial chamber dimension is mildly enlarged. 9. There is mild aortic valve regurgitation. 10. There is mild mitral valve regurgitation. 11. There is mild tricuspid valve regurgitation. 12. Strain analysis performed. Left Ventricle Left ventricular chamber dimension is normal. Left ventricular systolic function is normal, estimated at 60-65%. There is mildly increased left ventricular wall thickness. The left ventricular diastolic function is grade I diastolic dysfunction. Global longitudinal strain is normal at -18 %. The basal inferoseptal, and mid inferoseptal are hypokinetic. All other tinsley appear normal. Right Ventricle Right ventricular chamber dimension is normal. Right ventricular systolic function is normal. Left Atria Left atrial chamber dimension is mildly enlarged. Right Atria Right atrial chamber dimension is normal. Atrial Septum Intact interatrial septum visualized by color flow imaging. Aortic Valve The aortic valve is trileaflet. There is mild aortic valve sclerosis. There is no aortic valve stenosis. There is mild aortic valve regurgitation. Pulmonic Valve The pulmonic valve is normal. There is no pulmonic valve stenosis. There is trace pulmonic regurgitation. Mitral Valve The mitral valve has normal leaflets. There is no mitral valve stenosis. There is mild mitral valve regurgitation. Tricuspid Valve The tricuspid valve leaflets are normal. There is no significant tricuspid valve stenosis. There is mild tricuspid valve regurgitation. No pulmonary hypertension, estimated pulmonary arterial systolic pressure is 29 mmHg. Pericardium/Pleural The pericardium appears normal. There is trivial pericardial effusion. Inferior Vena Cava Normal inferior vena cava with >50% collapse upon inspiration consistent with normal right atrial pressure, 5 mmHg. Aorta The aortic root size at the sinus of Valsalva is normal. Left Ventricular Outflow Tract Name Value Normal LVOT 2D LVOT Diameter 2.0 cm LVOT Doppler -----
== END 2021-12-02 09:42 | disposition home or self-care (01) ==
LOC: ANHCARD 09:42
PROVIDERS: PCP Physician Assistant; Visit Provider Physician Assistant
DX: R94.31 Abnormal electrocardiogram [ECG] [EKG] (principal); I08.3 Combined rheumatic disorders of mitral, aortic and tricuspid valves
CPT/HCPCS: 93306

== ENCOUNTER 2021-12-14 10:25 | Outpatient (CLI) | payer OTHER, SELFPAY ==
[2021-12-14 11:06] LABS: Anion Gap 5 mmol/L (8-16); Blood Urea Nitrogen 17 mg/dL (7-17); Calcium 8.3 mg/dL (8.4-10.2); Carbon Dioxide 28 mmol/L (22-30); Chloride 105 mmol/L (98-107); Estimated Glomerular Filt Rate > 60; Glucose 103 mg/dL (65-110); Potassium 4.1 mmol/L (3.4-5.0); Sodium 138 mmol/L (137-145)
== END 2021-12-14 10:26 | disposition home or self-care (01) ==
PROVIDERS: Anesthesiology; PCP Physician Assistant; Visit Provider Orthopaedic Surgery
DX: Z01.818 Encounter for other preprocedural examination (principal); Z79.899 Other long term (current) drug therapy
CPT/HCPCS: 36415; 80048

== ENCOUNTER 2021-12-18 00:46 | Day surgery (SDC) | payer OTHER, SELFPAY ==
[2021-12-10 09:22] VITALS: BMI 32.5
--- NOTE | 2021-12-10 09:58 | PC.NURSE ---
Report to the Outpatient Waiting Room, entrance under the green pavilion located off [facility], at time 7:00 on date 12/18/21. OR Time: 9:00. - You and your visitor will be asked a series of questions to screen for COVID 19 for your protection. - A mask is required within the hospital. One visitor will be allowed to accompany the patient into the hospital. Patients visitor will be instructed to remain with patient at all times or leave the building. We will allow the visitor to come back to the postoperative area when patient is ready. Preoperative COVID Testing Requirements: No COVID Test needed if: (proof is required; if not received patient will have Rapid Test prior to entry) - Patient has received COVID Vaccine at least 14 days prior to procedure date or - Patient has positive COVID test result within last 90 days of surgery date. COVID Test needed if above criteria is not met Patients may have clear liquids (water, carbonated beverages, clear teas, apple juice) until 3 hours prior to surgery (6:00) with a maximum of 20 ounces. - No food from midnight until time of surgery Take the following medications with a SIP of water the morning of surgery: INHALER (IF NEEDED), AMLODIPINE, BUPROPION, BUSPIRONE, CITALOPRAM, CLONAZEPAM (IF NEEDED), METOPROLOL, PAIN PILL (IF NEEDED) Medications to discontinue per physician: N/A Date to take last dose: N/A Please no make-up, nail norwegian, hairspray, perfume, deodorant, or body powder the day of surgery. No jewelry (including any body piercings) or valuables the day of surgery, leave them at home. Please take a shower or bath the night before, or the morning of, surgery with an antibacterial soap. Wear comfortable, loose fitting clothing. - Jewelry must be removed prior to entering the operating room. Rings and piercings that are not removed may be cut off. - The hospital will not accept responsibility for valuables. - Please leave all valuables, including medications, at home the day of surgery. If you are going home after surgery, a licensed milk driver must drive you home. - NO public transportation without another adult. - We recommend that an adult stay with you for 24 hours following discharge. - We also recommend that you do not drive, make important decision, drink alcoholic beverages, or take any drugs that were not prescribed by your health care provider for at least 24 hours after your discharge time. Follow any additional instructions given to you from your surgeon. Telephone instructions given to ANIL CHAPARRO and asked if any additional questions and then verbalized understanding. Patient advised to call surgeon office or pre surgery nurse liaison [phone] if any additional questions.
[2021-12-18] VITALS (17 sets, daily range): BP systolic 87–120; BP diastolic 53–73; PULSE 60–73; RESP 12–20; TEMP 36.5; O2SAT 92–99
[2021-12-18] MEDS: ACETAMINOPHEN 500 MG TABLET 1000 MG PO (06:28)
[2021-12-18] MEDS: CELECOXIB 200 MG CAPSULE PO (06:29)
[2021-12-18] MEDS: LACTATED RINGERS 1,000 ML 30 ML IV CONT ×2 (06:35→10:00)
--- NOTE | 2021-12-18 06:49 | WPDANESEPPF ---
Anes - Initial Pre Proc Eval Procedure: Operation Date: 12/18/21 07:30 Proposed Procedures p Left Knee Arthroscopy - Juan Antonio Gamboa MD Date/Time: 12/18/21 06:49 Surgeon: Juan Antonio Gamboa MD Pre Op Diagnosis: left medial meniscus tear Patient Data Age: 56 Gender: F Height: 1.63 m Weight: 86.18 kg Allergies Allergy/AdvReac Type Severity Reaction Status Date / Time No Known Allergies Allergy Unknown Verified 12/18/21 06:11 Home Medications Medication Instructions Recorded Confirmed Type amlodipine 10 mg PO DAILY 02/27/20 12/18/21 History atorvastatin 40 mg PO DAILY 02/27/20 12/18/21 History bupropion HCl 150 mg PO DAILY 02/27/20 12/18/21 History buspirone 15 mg PO BID 02/27/20 12/18/21 History citalopram 40 mg PO DAILY 02/27/20 12/18/21 History furosemide 20 mg PO DAILY 02/27/20 12/18/21 History losartan 100 mg PO DAILY 02/27/20 12/18/21 History metoprolol succinate 50 mg PO DAILY 02/27/20 12/18/21 History omeprazole 20 mg DAILY 02/27/20 12/18/21 History spironolactone 50 mg PO DAILY 02/27/20 12/18/21 History trazodone 100 mg PO HS 02/27/20 12/18/21 History hydroxyzine HCl 25 mg PO DAILY 04/17/21 12/18/21 History albuterol sulfate 2 puff INHALATION QID PRN #8 g 09/08/21 12/10/21 Rx hydrocodone-acetaminophen 1 tablet PO Q6H PRN #12 tablet 09/08/21 12/18/21 Rx clonazepam 0.5 mg PO DAILY PRN 12/10/21 12/18/21 History Patient hx anesthesia problems: none Family hx anesthesia problems: none Results Review: All pre-operative results and documents have been reviewed as part of the pre-operative evaluation. [facility] Past Medical History Medical History Chondromalacia of knee Chronic cholecystitis Depression with anxiety GERD (gastroesophageal reflux disease) HLD (hyperlipidemia) HTN (hypertension) Left knee DJD Left knee pain Medial meniscus tear Obesity Sleep apnea Surgical History Surgical History History of conization of cervix Hx laparoscopic cholecystectomy Family History Family History Father Hypertension Mother CHF (congestive heart failure) Social History Social History Years smoked: 30 Smoking status: Former smoker Tobacco type: cigarettes Smoking end date: 08/22/17 Alcohol intake: current Drinks per week: 10 Alcohol use details: WINE Substance use: never Substance use type: does not use Living arrangements: alone 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 Informed Consent: The patient's anesthetic plan and its attendant risks and benefits were discussed with the patient/family/POA. Questions were solicited and answers provided to the satisfaction of the patient/family/POA.
--- NOTE | 2021-12-18 07:13 | WPDHPUPDATE1 ---
History and Physical Update Update Date/Time: 12/18/21 07:13 History and Physical has been reviewed, including an updated exam of the patient. There are NO changes in the patient's condition. Risks, benefits, and alternatives have been discussed and questions answered. Patient agrees to proceed with procedure.
[2021-12-18] MEDS: ceFAZolin 2 GM/D5W 50 ML 2 GM/50 ML BAG IVPB (07:29)
[2021-12-18] MEDS: BUPIVACAINE HCL 0.5% PF 30 ML VIAL INFILTRATE (08:05)
--- NOTE | 2021-12-18 08:39 | W.PM.PROC2 ---
Procedure Note - Detailed Date of Procedure 12/18/21 Pre-op Diagnosis left medial meniscus tear Post-op Diagnosis Other (LEFT MEDIAL AND LATERAL MENISCUS TEAR) Procedure Performed LEFT KNEE SCOPE Surgeon Juan Antonio Gamboa MD Anesthesia General Description of Procedure PATIENT WAS TAKEN TO THE OR. THE LEFT LEG WAS PREPPED AND DRAPED STERILE. TROCARS WERE PLACED IN THE USUAL FASHION. CAMERA WAS INTRODUCED. THERE WAS CHONDROMALACIA TO THE PATELLA FEMORAL JOINT. THERE WAS A LOT OF SYNOVITIS IN ALL COMPARTMENTS. THE MEDIAL COMPARTMENT SHOWED CHONDROMALACIA TO THE MEDIAL FEMORAL CONDYLE. A SHAVER WAS USED TO PREFORM A CHONDROPLASTY. THERE WAS A SMALL COMPLEX MEDIAL MENISCUS TEAR. THE TEAR WAS RESECTED WITH A BITER AND A SHAVER DOWN TO A SMOOTH BASE. ABOUT 10% OF THE MENISCUS WAS REMOVED. THE ACL WAS INTACT. THE LATERAL MENISCUS WAS TORN AT THE MID SECTION. THE TEAR WAS RESECTED. THE LAT COMPARTMENT HAD MINIMAL CHONDROMALACIA AT THE LATERAL PLATEAU. CHONDROPLASTY WAS PREFORMED. A SYNOVECTOMY WAS PREFORMED WELL. THE PATELLO FEMORAL JOINT UNDERWENT CHONDROPLASTY. THERE WAS GRADE 3 CHONDROMALACIA IN MOST OF THE TROCHLEA AND PART OF THE PATELLA. SYNOVECTOMY WAS PREFORMED IN THE SUPERIOR MEDIAL COMPARTMENT. THE WOUNDS WERE APPROXIMATED WITH 4.0 NYLON. STERILE DRESSING WAS APPLIED. PATIENT WAS EXTUBATED. Estimated Blood Loss 5 Complications No immediate complications Condition Stable Disposition PACU
[2021-12-18] MEDS: fentaNYL CITRATE INJ (*CRX) 100 MCG/2 ML VIAL 25 MCG IV PUSH ×4 (09:56→10:25)
[2021-12-18] MEDS: oxyCODONE HCL (*CRX) 5 MG TAB IR PO (11:15)
--- NOTE | 2021-12-18 13:04 | SUR.PHASEII ---
PT REQUESTING TO GO HOME. DR HOLGUIN AWARE OF O2 SATS DROPPING INTO THE HIGH 80S AND THEN COMING UP INTO THE 90S QUICKLY. PT USING I.S. REGULARLY. DR ISSA TO DISCHARGE PT HOME & ENCOURAGES USE OF CPAP. PT STATES SHE WITH DEFINITELY WEAR CPAP AT HOME.
== END 2021-12-18 13:13 | disposition home or self-care (01) ==
PROVIDERS: PCP Physician Assistant; Visit Provider Orthopaedic Surgery
PROC: (CPT 29870; principal; 2021-12-18 07:30)
DX: S83.242A Other tear of medial meniscus, current injury, left knee, initial encounter (principal); S83.282A Other tear of lateral meniscus, current injury, left knee, initial encounter; M22.42 Chondromalacia patellae, left knee; M65.862 Other synovitis and tenosynovitis, left lower leg; F41.8 Other specified anxiety disorders; K21.9 Gastro-esophageal reflux disease without esophagitis; I10 Essential (primary) hypertension; G47.30 Sleep apnea, unspecified; E78.5 Hyperlipidemia, unspecified; Z79.51 Long term (current) use of inhaled steroids; Z87.891 Personal history of nicotine dependence; E66.9 Obesity, unspecified; Z68.35 Body mass index [BMI] 35.0-35.9, adult
CPT/HCPCS: 29880; A9270; J0690; J1100; J2250; J2405; J2704; J3010; J7120

== ENCOUNTER 2022-05-13 08:47 | Outpatient (CLI) | payer OTHER, SELFPAY ==
--- NOTE | 2022-05-13 | EST_ITS ---
Patient Info Name: Peggy Martinez Age: 56 years : 1965 Gender: Female Ht: 64 in Wt: 200 lbs BSA: 2.06 m2 Exam Date: 05/13/2022 9:44 AM Exam Location: [facility] Patient Status: Outpatient Admit Date: 05/13/2022 Staff Ordering Physician: PieroTracey Attending Provider: Piero*Tracey Whitten Exercise Technologist: Lizbet Gooden RDCS Nurse: ANTONY LONDON NP Exam Type: CA stress test treadmill Study Info Indications R06.09 - Other forms of dyspnea A treadmill exercise stress test was performed. Summary 1. No ST/T wave changes diagnostic of ischemia with exercise. 2. Exercise capacity fair to good at 6-10 METS. 3. Hypertensive blood pressure response with exercise. Protocol: [facility] Stress ECG Details Stage: REST Duration (min): 5 min : 15 sec Speed (mph): 0.0 Grade (%): 0 HR (bpm): 63 SBP (mmHg): 120 DBP (mmHg): 67 METS: --- Stage: STAGE 1 Duration (min): 0 min : 10 sec Speed (mph): 1.7 Grade (%): 10 HR (bpm): 70 SBP (mmHg): 120 DBP (mmHg): 67 METS: --- Stage: STAGE 1 Duration (min): 1 min : 0 sec Speed (mph): 1.7 Grade (%): 10 HR (bpm): 96 SBP (mmHg): 120 DBP (mmHg): 67 METS: --- Stage: STAGE 1 Duration (min): 2 min : 0 sec Speed (mph): 1.7 Grade (%): 10 HR (bpm): 104 SBP (mmHg): 120 DBP (mmHg): 67 METS: --- Stage: STAGE 1 Duration (min): 3 min : 0 sec Speed (mph): 1.7 Grade (%): 10 HR (bpm): 107 SBP (mmHg): 198 DBP (mmHg): 113 METS: --- Stage: STAGE 2 Duration (min): 1 min : 0 sec Speed (mph): 2.5 Grade (%): 12 HR (bpm): 117 SBP (mmHg): 198 DBP (mmHg): 113 METS: --- Stage: STAGE 2 Duration (min): 2 min : 0 sec Speed (mph): 2.5 Grade (%): 12 HR (bpm): 124 SBP (mmHg): 157 DBP (mmHg): 67 METS: --- Stage: STAGE 2 Duration (min): 3 min : 0 sec Speed (mph): 2.5 Grade (%): 12 HR (bpm): 128 SBP (mmHg): 157 DBP (mmHg): 67 METS: --- Stage: STAGE 3 Duration (min): 0 min : 36 sec Speed (mph): 3.4 Grade (%): 14 HR (bpm): 135 SBP (mmHg): 157 DBP (mmHg): 67 METS: --- Stage: RECOVERY Duration (min): 0 min : 23 sec Speed (mph): 0.0 Grade (%): 0 HR (bpm): 137 SBP (mmHg): 157 DBP (mmHg): 67 METS: --- Stage: RECOVERY Duration (min): 1 min : 23 sec Speed (mph): 0.0 Grade (%): 0 HR (bpm): 110 SBP (mmHg): 129 DBP (mmHg): 73 METS: --- Stage: RECOVERY Duration (min): 2 min : 23 sec Speed (mph): 0.0 Grade (%): 0 HR (bpm): 91 SBP (mmHg): 129 DBP (mmHg): 73 METS: --- Stage: RECOVERY Duration (min): 3 min : 2 sec Speed (mph): 0.0 Grade (%): 0 HR (bpm): 90 SBP (mmHg): 132 DBP (mmHg): 65 METS: --- Rest HR: 63 bpm Peak HR: 139 bpm Rest Sys BP: 120
== END 2022-05-13 08:48 | disposition home or self-care (01) ==
LOC: ANHCARD 08:48
PROVIDERS: PCP Physician Assistant; Visit Provider Physician Assistant
DX: R06.9 Unspecified abnormalities of breathing (principal)
CPT/HCPCS: 93017

== ENCOUNTER 2022-10-28 15:25 | Emergency (ER) | payer OTHER, SELFPAY ==
[2022-10-28 15:32] VITALS: BP 114/85; PULSE 68; RESP 16; TEMP 36.3; O2SAT 98
[2022-10-28 15:34] VITALS: BP 114/85; PULSE 68; RESP 16; TEMP 36.3; O2SAT 98
--- NOTE | 2022-10-28 15:38 | ED.DENTAL ---
HPI - Dental/Oral General Chief complaint: Dental/Oral Stated complaint: Face Swelling/Pain Time Seen by Provider: 10/28/22 15:40 Source: patient Mode of arrival: ambulatory Limitations: no limitations History of Present Illness HPI Narrative: Ability is a 57-year-old female patient presenting to the clinic today with complaints of dental pain to the right lower jaw. She reports that she had her tooth pulled 8 days ago and is having some lower right jaw pain with swelling. She contacted her dentist office and they told her to come in to be evaluated. She reports that she is still having some bleeding coming from this area as well. States she is getting a foul taste in her mouth due to this area Related Data Home Medications Medication Instructions Recorded Confirmed amlodipine 10 mg tablet 10 mg PO DAILY 02/27/20 10/28/22 atorvastatin 40 mg tablet 40 mg PO DAILY 02/27/20 10/28/22 bupropion HCl 150 mg 24 hr tablet, 150 mg PO DAILY 02/27/20 10/28/22 extended release buspirone 15 mg tablet 15 mg PO BID 02/27/20 10/28/22 citalopram 40 mg tablet 40 mg PO DAILY 02/27/20 10/28/22 furosemide 20 mg tablet 20 mg PO DAILY 02/27/20 10/28/22 losartan 100 mg tablet 100 mg PO DAILY 02/27/20 10/28/22 metoprolol succinate 50 mg 50 mg PO DAILY 02/27/20 10/28/22 tablet,extended release 24 hr omeprazole 20 mg capsule,delayed 20 mg DAILY 02/27/20 10/28/22 release spironolactone 50 mg tablet 50 mg PO DAILY 02/27/20 10/28/22 trazodone 100 mg tablet 100 mg PO HS 02/27/20 10/28/22 hydroxyzine HCl 25 mg tablet 25 mg PO DAILY 04/17/21 10/28/22 clonazepam 0.5 mg tablet 0.5 mg PO DAILY PRN Anxiety 12/10/21 10/28/22 Allergies Allergy/AdvReac Type Severity Reaction Status Date / Time No Known Allergies Allergy Unknown Verified 12/31/21 09:10 Review of Systems Review of Systems: Pertinent positives per HPI. Patient denies any fever, chills, rash, headache, visual changes, dizziness, cough, runny nose, sore throat, shortness of breath, chest pain, palpitations, nausea, vomiting, diarrhea, constipation, abdominal pain, or any urinary issues. [facility] Past Medical History Medical History Chondromalacia of knee Chronic cholecystitis Depression with anxiety GERD (gastroesophageal reflux disease) HLD (hyperlipidemia) HTN (hypertension) Left knee DJD Left knee pain Medial meniscus tear Obesity Sleep apnea Surgical History Surgical History History of conization of cervix Hx laparoscopic cholecystectomy Family History Family History Father Hypertension Mother CHF (congestive heart failure) Social History Social History Years smoked: 30 Tobacco type: cigarettes Smoking end date: 08/22/17 Alcohol intake: current Drinks per week: 10 Alcohol use details: WINE Substance use: never Substance use type: does not use Living arrangements: alone Occupation/Education: occupation 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 There is no relevant family history pertinent to the patient complaint. Exam Narrative: General: Well-developed, well nourished, in no apparent distress Head: Normocephalic, atraumatic Eyes: Pupils equally round and reactive to light bilaterally, EOM intact, sclera and conjunctive clear, no discharge, lids normal Ears: TMs intact and clear, ear canals clear, no drainage, grossly hearing normal. Nose: Nares patent, no discharge, no inflammation, no sinus tenderness. Mouth: Oropharynx without lesions or masses, fair d
== END 2022-10-28 15:47 | disposition home or self-care (01) ==
PROVIDERS: Emergency Provider Nurse Practitioner Family; PCP Physician Assistant
DX: K04.7 Periapical abscess without sinus (principal); E78.5 Hyperlipidemia, unspecified; I10 Essential (primary) hypertension; F17.210 Nicotine dependence, cigarettes, uncomplicated
CPT/HCPCS: 99213; G0463

== ENCOUNTER 2022-12-22 15:21 | Emergency (ER) | payer OTHER, SELFPAY ==
--- NOTE | ~2022-12-22 | XR_ITS ---
EXAMINATION: XR knee RT min 4V DATE: 12/22/2022 15:42 INDICATION: Right knee injury and pain and swelling. TECHNIQUE: 4 views of right knee were obtained. COMPARISON: None. FINDINGS: Bone alignment is normal. No fracture. There is mild osteoarthritis of medial and patellofe moral compartments characterized by tiny osteophytes. No knee joint effusion. IMPRESSION: 1. Mild right knee osteoarthritis. Reviewed, dictated and finalized at location A.
[2022-12-22 15:26] VITALS: BP 123/77; PULSE 66; RESP 16; TEMP 36.6; O2SAT 98
--- NOTE | 2022-12-22 15:41 | ED.LOWEXIN ---
HPI - Extremity Injury (Lower) General Chief Complaint: Extremity Injury, Lower Stated Complaint: Right Knee Pain Time Seen by Provider: 12/22/22 15:41 Source: patient Mode of arrival: ambulatory Limitations: no limitations History of Present Illness HPI Narrative: 57-year-old female presents with complaint of pain to right knee. Reports that on Tuesday she twisted her right knee while walking. Reports pain to lateral aspect. Patient reports history of torn meniscus to left knee. Has appointment with Orthopedics January 14. Patient is requesting a knee immobilizer And x-ray. States that it helped with her pain last time. States that she has crutches at home. ambulatory with slight limp. All systems reviewed and negative except as noted above. Related Data Home Medications Medication Instructions Recorded Confirmed amlodipine 10 mg tablet 10 mg PO DAILY 02/27/20 12/22/22 bupropion HCl 150 mg 24 hr tablet, 150 mg PO DAILY 02/27/20 12/22/22 extended release buspirone 15 mg tablet 15 mg PO BID 02/27/20 12/22/22 citalopram 40 mg tablet 40 mg PO DAILY 02/27/20 12/22/22 furosemide 20 mg tablet 20 mg PO DAILY 02/27/20 12/22/22 losartan 100 mg tablet 100 mg PO DAILY 02/27/20 12/22/22 metoprolol succinate 50 mg 50 mg PO DAILY 02/27/20 12/22/22 tablet,extended release 24 hr omeprazole 20 mg capsule,delayed 20 mg DAILY 02/27/20 12/22/22 release spironolactone 50 mg tablet 50 mg PO DAILY 02/27/20 12/22/22 trazodone 100 mg tablet 100 mg PO HS 02/27/20 12/22/22 hydroxyzine HCl 25 mg tablet 25 mg PO DAILY 04/17/21 12/22/22 clonazepam 0.5 mg tablet 0.5 mg PO DAILY PRN Anxiety 12/10/21 12/22/22 cholecalciferol (vitamin D3) 1,250 1,250 mcg PO WEEKLY 12/22/22 12/22/22 mcg (50,000 unit) capsule Allergies Allergy/AdvReac Type Severity Reaction Status Date / Time No Known Allergies Allergy Unknown Verified 12/22/22 15:27 Review of Systems Review of Systems: CONSTITUTIONAL: Denies fever, chills, or sweats. EYES: Denies visual changes, redness, or discharge. ENT: Denies rhinorrhea, congestion, sore throat, or otalgia. CARDIOVASCULAR: Denies chest pain, palpitations, or edema. RESPIRATORY: Denies cough or dyspnea. GASTROINTESTINAL: Denies abdominal pain, nausea, vomiting, or diarrhea. GENITOURINARY: Denies dysuria or hematuria. SKIN: Denies rash or itching. MUSCULOSKELETAL: Denies back pain or myalgia. Reports pain And swelling to right knee. NEUROLOGIC: Denies headache, numbness, or weakness. PSYCHIATRIC: Denies anxiety or depression. All other systems reviewed are negative, except as documented in HPI. [facility] Past Medical History Medical History Chondromalacia of knee Chronic cholecystitis Depression with anxiety GERD (gastroesophageal reflux disease) HLD (hyperlipidemia) HTN (hypertension) Left knee DJD Left knee pain Medial meniscus tear Obesity Sleep apnea Surgical History Surgical History History of conization of cervix Hx laparoscopic cholecystectomy Family History Family History Father Hypertension Mother CHF (congestive heart failure) Social History Social History Years smoked: 30 Tobacco type: cigarettes Smoking end date: 08/22/17 Alcohol intake: current Drinks per week: 10 Alcohol use details: WINE Substance use: never Substance use type: does not use Living arrangements: alone Occupation/Education: occupation 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 There is no relevant family history pertinent to the prese
== END 2022-12-22 16:08 | disposition home or self-care (01) ==
PROVIDERS: Emergency Provider Nurse Practitioner Family; PCP Physician Assistant
DX: S86.911A Strain of unspecified muscle(s) and tendon(s) at lower leg level, right leg, initial encounter (principal); X50.9XXA Other and unspecified overexertion or strenuous movements or postures, initial encounter; Y93.01 Activity, walking, marching and hiking; K21.9 Gastro-esophageal reflux disease without esophagitis; E78.5 Hyperlipidemia, unspecified; I10 Essential (primary) hypertension; E66.9 Obesity, unspecified; Z68.33 Body mass index [BMI] 33.0-33.9, adult; M17.12 Unilateral primary osteoarthritis, left knee; F41.9 Anxiety disorder, unspecified; F32.A Depression, unspecified
CPT/HCPCS: 73564; 99213; G0463; L1830

== ENCOUNTER 2023-01-22 13:38 | Outpatient (CLI) | payer OTHER, SELFPAY ==
--- NOTE | ~2023-01-22 | MR_ITS ---
MRI of the right knee Clinical history: Pain, internal derangement Technique: Coronal proton density and proton density-weighted images, sagittal proton-density and T2 fat-sat images, and axial proton-density fat-saturated images were acquired. Findings: Anterior and posterior cruciate ligaments are intact. Medial collateral ligament and the la teral collateral ligament complex are intact. Popliteus tendon is intact. There is complex, predominantly horizontal tear of the posterior horn of the medial meniscus. There i s large horizontal tear throughout the entirety of the lateral meniscus, with probable additional kris e edge vertical tear of the posterior horn of the lateral meniscus. Articular cartilage is relatively well preserved in the medial lateral compartments. There is focal h igh-grade chondral lesion along the medial patellar facet. Femoral trochlear cartilage is intact. Bon e marrow signals are essentially unremarkable. Extensor mechanism is intact. Minimal joint effusion present. Small Christiansen cyst present. Impression: Complex, predominantly horizontal tear of the posterior horn of the medial meniscus. Large horizontal tear involving the entire lateral meniscus with probable additional free edge vertic al tear of the posterior horn. Focal high-grade chondral lesion at the medial patellar facet. Small Christiansen's cyst. Reviewed, dictated and finalized at [facility]. Impression: Complex, predominantly horizontal tear of the posterior horn of the medial meni scus. Large horizontal tear involving the entire lateral meniscus with probable addit ional free edge vertical tear of the posterior horn. Focal high-grade chondral lesion at the medial patellar facet. Small Christiansen's cyst.
== END 2023-01-22 13:39 | disposition home or self-care (01) ==
PROVIDERS: PCP Physician Assistant; Visit Provider Orthopaedic Surgery
DX: M71.21 Synovial cyst of popliteal space [Baker], right knee (principal); S83.281A Other tear of lateral meniscus, current injury, right knee, initial encounter; S83.231A Complex tear of medial meniscus, current injury, right knee, initial encounter; X58.XXXA Exposure to other specified factors, initial encounter
CPT/HCPCS: 73721

== ENCOUNTER 2023-04-22 00:46 | Day surgery (SDC) | payer MEDICAID, SELFPAY ==
[2023-04-21 09:55] VITALS: BMI 32.9
--- NOTE | 2023-04-21 10:10 | PC.NURSE ---
Report to the Outpatient Waiting Room, entrance under the green pavilion located off [facility], at time _0600 on date 04/22/23. Planned Procedure Time: 0730_. Time changes happen often and if your time is changed the preop area will call you the afternoon before. - You and your visitor will be asked to self-screen and do not enter if you have any COVID symptoms. - A mask is optional within the hospital at this time. Patients may have clear liquids (water, carbonated beverages, clear teas, apple juice) until 3 hours prior to surgery with a maximum of 20 ounces. - No food from midnight until time of surgery - Infants may have breast milk until 4 hours before surgery, formula 6 hours prior to surgery. - Children will be allowed to drink immediately following surgery. If applicable, please bring a bottle or sippy cup to assist with drinking. Juice, water, soda, and popsicles are readily available. For infants on formula, please bring formula the day of surgery. Pacifiers are allowed. Take the following medications with a SIP of water the morning of surgery: _metoprolol, amlodipine, anti-anxiety____ DO NOT STOP ANY OF YOUR OTHER PRESCRIPTION MEDICATIONS PRIOR TO SURGERY ?EXCEPT THE FOLLOWING Medications to discontinue per physician ___vitamin Date to take last dose__04/17/23___ Please no make-up, nail yi, hairspray, perfume, deodorant, or body powder the day of surgery. No jewelry (including any body piercings) or valuables the day of surgery, leave them at home. Please take a shower or bath the night before, or the morning of, surgery with an antibacterial soap(Hibiclens). Wear comfortable, loose fitting clothing. Children are encouraged to wear pajamas. - Jewelry must be removed prior to entering the operating room. Rings and piercings that are not removed may be cut off. - The hospital will not accept responsibility for valuables. - Please leave all valuables, including medications, at home the day of surgery. If you are going home after surgery, a licensed delivery truck driver heavy must drive you home. - NO public transportation without another adult if you receive anesthesia. - We recommend that an adult stay with you for 24 hours following discharge. - We also recommend that you do not drive, make important decision, drink alcoholic beverages, or take any drugs that were not prescribed by your health care provider for at least 24 hours after your discharge time. For Pediatric surgeries, we recommend two adults accompany the child home. Follow any additional instructions given to you from your surgeon. If you or anyone in your household have experienced Covid symptoms in the past week, please notify your surgeon or the nurse liaison at the phone number below for possible testing. Telephone instructions given to Peggy Hinkle_and asked if any additional questions and then verbalized understanding. Patient advised to call surgeon office or pre surgery nurse liaison [phone] if any additional questions.
[2023-04-22] VITALS (10 sets, daily range): BP systolic 96–119; BP diastolic 60–74; PULSE 55–66; RESP 12–17; TEMP 36.1–36.2; O2SAT 93–100
[2023-04-22] MEDS: CELECOXIB 200 MG CAPSULE PO (06:25)
[2023-04-22] MEDS: ACETAMINOPHEN 500 MG TABLET 1000 MG PO (06:25)
--- NOTE | 2023-04-22 06:39 | WPDANESEPPF ---
Anes - Initial Pre Proc Eval Procedure: Operation Date: 04/22/23 07:30 Proposed Procedures p Right Knee Arthroscopy - Juan Antonio Gamboa MD Date/Time: 04/22/23 06:39 Surgeon: Juan Antonio Gamboa MD Pre Op Diagnosis: right knee medial & lateral meniscus tears Patient Data Age: 57 Gender: F Height: 1.63 m Weight: 87 kg Allergies Allergy/AdvReac Type Severity Reaction Status Date / Time No Known Allergies Allergy Unknown Verified 04/22/23 06:01 Home Medications Medication Instructions Recorded Confirmed Type amlodipine 10 mg tablet 10 mg PO DAILY 02/27/20 04/21/23 History bupropion HCl 150 mg 24 hr tablet, 150 mg PO DAILY 02/27/20 04/21/23 History extended release buspirone 15 mg tablet 15 mg PO BID 02/27/20 04/21/23 History citalopram 40 mg tablet 40 mg PO DAILY 02/27/20 04/21/23 History furosemide 20 mg tablet 20 mg PO DAILY 02/27/20 04/21/23 History losartan 100 mg tablet 100 mg PO DAILY 02/27/20 04/21/23 History metoprolol succinate 50 mg 50 mg PO DAILY 02/27/20 04/21/23 History tablet,extended release 24 hr omeprazole 20 mg capsule,delayed 20 mg PO DAILY 02/27/20 04/21/23 History release spironolactone 50 mg tablet 50 mg PO DAILY 02/27/20 04/21/23 History trazodone 100 mg tablet 100 mg PO HS 02/27/20 04/21/23 History hydroxyzine HCl 25 mg tablet 25 mg PO DAILY 04/17/21 04/21/23 History clonazepam 0.5 mg tablet 0.5 mg PO DAILY PRN Anxiety 12/10/21 04/21/23 History cholecalciferol (vitamin D3) 1,250 1,250 mcg PO WEEKLY 12/22/22 04/21/23 History mcg (50,000 unit) capsule chlorhexidine gluconate 4 % 1 applic topical DAILY #237 mL 03/04/23 04/21/23 Rx topical liquid (Hibiclens) Patient hx anesthesia problems: none Family hx anesthesia problems: none Results Review: All pre-operative results and documents have been reviewed as part of the pre-operative evaluation. [facility] Past Medical History Medical History Chondromalacia of knee Chronic cholecystitis Depression with anxiety GERD (gastroesophageal reflux disease) HLD (hyperlipidemia) HTN (hypertension) Left knee DJD Left knee pain Medial meniscus tear Obesity Sleep apnea Surgical History Surgical History History of conization of cervix Hx laparoscopic cholecystectomy Family History Family History Father Hypertension Mother CHF (congestive heart failure) Social History Social History Years smoked: 30 Smoking status: Former smoker Tobacco type: cigarettes Smoking end date: 08/22/17 Alcohol intake: current Drinks per week: 10 Alcohol use details: WINE Substance use: never Substance use type: does not use Living arrangements: with family Occupation/Education: occupation 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 Informed Consent: The patient's anesthetic plan and its attendant risks and benefits were discussed with the patient/family/POA. Questions were solicited and answers provided to the satisfaction of the patient/family/POA.
[2023-04-22] MEDS: LACTATED RINGERS 1,000 ML 30 ML IV CONT ×2 (06:55→09:20)
--- NOTE | 2023-04-22 07:16 | WPDHPUPDATE1 ---
History and Physical Update Update Date/Time: 04/22/23 07:16 History and Physical has been reviewed, including an updated exam of the patient. There are NO changes in the patient's condition. Risks, benefits, and alternatives have been discussed and questions answered. Patient agrees to proceed with procedure.
[2023-04-22] MEDS: ceFAZolin 2 GM/D5W 50 ML 2 GM/50 ML BAG IVPB (07:30)
[2023-04-22] MEDS: BUPivacaine HCL 0.5% PF 30 ML VIAL INFILTRATE (07:46)
[2023-04-22] MEDS: fentaNYL CITRATE INJ (*CRX) 100 MCG/2 ML VIAL 25 MCG IV PUSH ×3 (09:21→09:38)
--- NOTE | 2023-04-22 09:24 | W.PM.PROC2 ---
Procedure Note - Detailed Date of Procedure 04/22/23 Pre-op Diagnosis right knee medial & lateral meniscus tears Post-op Diagnosis Same Procedure Performed RIGHT KNEE SCOPE Surgeon Juan Antonio Gamboa MD Anesthesia General Description of Procedure PATIENT WAS TAKEN TO THE OR. RIGHT LEG WAS PREPPED AND DRAPED STERILE. TROCARS WERE PLACED IN THE USUAL FASHION. CAMERA WAS INTRODUCED. THERE WAS MINIMAL CHONDROMALACIA TO THE PATELLA FEMORAL JOINT. THERE WAS A LOT OF SYNOVITIS IN ALL COMPARTMENTS. THE MEDIAL COMPARTMENT SHOWED CHONDROMALACIA TO THE MEDIAL FEMORAL CONDYLE. A SHAVER WAS USED TO PREFORM A CHONDROPLASTY. THERE WAS A SMALL COMPLEX MEDIAL MENISCUS TEAR. THE TEAR WAS RESECTED WITH A BITER AND A SHAVER DOWN TO A SMOOTH BASE. THE ACL WAS INTACT. THE LATERAL MENISCUS WAS TORN AT THE ANTERIOR HORN AND MIDSUBSTANCE. THE TEAR WAS LARGE AND COMPLEX IN NATURE. THE TEAR WAS RESECTED. THE LAT COMPARTMENT HAD GRADE 2 CHONDROMALACIA AT THE LATERAL PLATEAU. CHONDROPLASTY WAS PREFORMED. A SYNOVECTOMY WAS PREFORMED WELL. THE PATELLO FEMORAL JOINT UNDERWENT CHONDROPLASTY. THERE WAS GRADE 3 CHONDROMALACIA. SYNOVECTOMY WAS PREFORMED IN THE SUPERIOR MEDIAL COMPARTMENT. THE WOUNDS WERE APPROXIMATED WITH 4.0 NYLON. STERILE DRESSING WAS APPLIED. PATIENT WAS EXTUBATED. Estimated Blood Loss 5 Complications No immediate complications Condition Stable Disposition PACU
[2023-04-22] MEDS: oxyCODONE HCL (*CRX) 5 MG TAB IR PO (10:16)
== END 2023-04-22 11:01 | disposition home or self-care (01) ==
PROVIDERS: PCP Physician Assistant; Visit Provider Orthopaedic Surgery
PROC: (CPT 29870; principal; 2023-04-22 07:30)
DX: S83.231A Complex tear of medial meniscus, current injury, right knee, initial encounter (principal); S83.271A Complex tear of lateral meniscus, current injury, right knee, initial encounter; M65.861 Other synovitis and tenosynovitis, right lower leg; M94.261 Chondromalacia, right knee; X50.0XXA Overexertion from strenuous movement or load, initial encounter; I10 Essential (primary) hypertension; E78.5 Hyperlipidemia, unspecified; K21.9 Gastro-esophageal reflux disease without esophagitis; G47.30 Sleep apnea, unspecified; F41.8 Other specified anxiety disorders; E66.9 Obesity, unspecified; Z68.35 Body mass index [BMI] 35.0-35.9, adult; Z87.891 Personal history of nicotine dependence
CPT/HCPCS: 29880; A9270; J0690; J1100; J2250; J2405; J2704; J3010; J7120

== ENCOUNTER 2023-08-02 01:01 | Day surgery (SDC) | payer OTHER, SELFPAY ==
[2023-07-18 15:55] VITALS: BMI 34.4
--- NOTE | 2023-07-29 14:34 | SUR.PREOP ---
Patient called regarding upcoming procedure. Reviewed preop instructions, appointment times, and procedure prep.
[2023-08-02 09:17] VITALS: BP 114/77; PULSE 75; RESP 20; TEMP 36.2; O2SAT 97
[2023-08-02] MEDS: LACTATED RINGERS 1,000 ML 150 ML IV CONT (09:21)
--- NOTE | 2023-08-02 10:35 | WPDHPUPDATE1 ---
History and Physical Update Update Date/Time: 08/02/23 10:35 History and Physical has been reviewed, including an updated exam of the patient. There are NO changes in the patient's condition. Risks, benefits, and alternatives have been discussed and questions answered. Patient agrees to proceed with procedure.
--- NOTE | 2023-08-02 10:37 | WPDANESEPPF ---
Anes - Initial Pre Proc Eval Procedure: Operation Date: 08/02/23 10:30 Proposed Procedures p Esophagogastroduodenoscopy - Minh Hutchinson MD Date/Time: 08/02/23 10:37 Surgeon: Minh Hutchinson MD Pre Op Diagnosis: GERD, Dysphagia Patient Data Age: 58 Gender: F Height: 1.63 m Weight: 94.8 kg Last Vital Signs Temp 97.2 F L 08/02/23 09:17 Pulse 75 08/02/23 09:17 Resp 20 08/02/23 09:17 BP 114/77 08/02/23 09:17 Pulse Ox 97 08/02/23 09:17 O2 Del Method Room Air 08/02/23 09:17 Allergies Allergy/AdvReac Type Severity Reaction Status Date / Time No Known Allergies Allergy Unknown Verified 08/02/23 09:15 Home Medications Medication Instructions Recorded Confirmed Type amlodipine 10 mg tablet 10 mg PO DAILY 02/27/20 07/18/23 History bupropion HCl 150 mg 24 hr tablet, 150 mg PO DAILY 02/27/20 07/18/23 History extended release buspirone 15 mg tablet 15 mg PO BID 02/27/20 07/18/23 History citalopram 40 mg tablet 40 mg PO DAILY 02/27/20 07/18/23 History furosemide 20 mg tablet 20 mg PO DAILY 02/27/20 07/18/23 History losartan 100 mg tablet 100 mg PO DAILY 02/27/20 07/18/23 History metoprolol succinate 50 mg 50 mg PO DAILY 02/27/20 07/18/23 History tablet,extended release 24 hr spironolactone 50 mg tablet 50 mg PO DAILY 02/27/20 07/18/23 History trazodone 100 mg tablet 100 mg PO HS 02/27/20 07/18/23 History hydroxyzine HCl 25 mg tablet 25 mg PO DAILY 04/17/21 07/18/23 History clonazepam 0.5 mg tablet 0.5 mg PO DAILY PRN Anxiety 12/10/21 07/18/23 History cholecalciferol (vitamin D3) 1,250 1,250 mcg PO WEEKLY 12/22/22 07/18/23 History mcg (50,000 unit) capsule omeprazole 40 mg capsule,delayed 40 mg PO BID #60 caps 07/12/23 07/18/23 Rx release sucralfate 1 gram tablet (Carafate) 1 g PO ACHS #120 tabs 07/12/23 07/18/23 Rx Patient hx anesthesia problems: none Family hx anesthesia problems: none Results Review: All pre-operative results and documents have been reviewed as part of the pre-operative evaluation. [facility] Past Medical History Medical History (Updated 07/12/23 @ 11:48 by Elaina Davis APRN) Chondromalacia of knee Chronic cholecystitis Colon cancer screening Depression with anxiety Dysphagia GERD (gastroesophageal reflux disease) HLD (hyperlipidemia) HTN (hypertension) Left knee DJD Left knee pain Medial meniscus tear Obesity Odynophagia Sleep apnea Surgical History Surgical History History of conization of cervix Hx laparoscopic cholecystectomy Family History Family History Father Hypertension Mother CHF (congestive heart failure) Social History Social History Years smoked: 30 Smoking status: Former smoker Tobacco type: cigarettes Smoking end date: 08/22/17 Alcohol intake: current Drinks per week: 10 Alcohol use details: 5 drinks monthly Substance use: never Substance use type: does not use Living arrangements: with family Occupation/Education: occupation 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 Informed Consent: The patient's anesthetic plan and its attendant risks and benefits were discussed with the patient/family/POA.
[2023-08-02 10:51] VITALS: BP 102/72; PULSE 77; RESP 20; O2SAT 97
[2023-08-02 11:01] VITALS: BP 111/76; PULSE 72; RESP 20; O2SAT 97
[2023-08-02 11:11] VITALS: BP 117/73; PULSE 64; RESP 20; O2SAT 100
== END 2023-08-02 11:22 | disposition home or self-care (01) ==
PROVIDERS: PCP Physician Assistant; Visit Provider Internal Medicine Gastroenterology
PROC: 0DJ08ZZ Inspection of Upper Intestinal Tract, Via Natural or Artificial Opening Endoscopic (ICD-10-PCS; CPT 43235; principal; 2023-08-02 10:30)
DX: K22.2 Esophageal obstruction (principal); K44.9 Diaphragmatic hernia without obstruction or gangrene; K29.50 Unspecified chronic gastritis without bleeding; K21.9 Gastro-esophageal reflux disease without esophagitis; I10 Essential (primary) hypertension; E78.5 Hyperlipidemia, unspecified; F41.8 Other specified anxiety disorders; G47.30 Sleep apnea, unspecified; E66.9 Obesity, unspecified; Z68.35 Body mass index [BMI] 35.0-35.9, adult; Z87.891 Personal history of nicotine dependence
CPT/HCPCS: 43249; 43239; 88305; C1726; J2704; J7120

== ENCOUNTER 2023-08-03 10:31 | Outpatient (CLI) | payer OTHER, SELFPAY ==
--- NOTE | ~2023-08-03 | MM_ITS ---
EXAMINATION: MM screening david BI w ranjith HISTORY: Screening TECHNIQUE: Craniocaudal and mediolateral oblique 3-D tomosynthesis images were obtained and synthetic 2-D images were generated. CAD analysis was submitted and interpreted. COMPARISON: Comparison to multiple prior studies sequentially, with oldest reviewed study dated 09/2014. BREAST PARENCHYMAL COMPOSITION: There are scattered areas of fibroglandular density. FINDINGS: There is no evidence of suspicious mass, calcification, or architectural distortion to sugg est malignancy in either breast. There has been no suspicious interval change. IMPRESSION: 1. No mammographic evidence of malignancy. 2. Recommend routine screening mammography in one year. BI-RADS Category 1: Negative Reviewed, dictated and finalized at location A. 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
== END 2023-08-03 10:32 | disposition home or self-care (01) ==
LOC: ANHIMG 10:33
PROVIDERS: PCP Physician Assistant; Visit Provider Physician Assistant
DX: Z12.31 Encounter for screening mammogram for malignant neoplasm of breast (principal)
CPT/HCPCS: 77063; 77067

== ENCOUNTER 2024-08-16 14:54 | Emergency (ER) | payer OTHER, SELFPAY ==
--- NOTE | ~2024-08-16 | XR_ITS ---
XR knee LT min 4V Ordering provider: Wendy Perez APRN History: . pain anterior left knee post fall 5 days ago . Comparison: None. FINDINGS: BONES: No acute fracture or dislocation. JOINT SPACES: Normal. SOFT TISSUES: Normal. IMPRESSION: No acute osseous abnormality left knee. Reviewed, dictated and finalized at location A. TOR OPERATOR
[2024-08-16 15:26] VITALS: BP 143/84; PULSE 83; RESP 16; TEMP 36.8; O2SAT 98
--- NOTE | 2024-08-16 16:02 | ED.LOWEXIN ---
HPI - Extremity Injury (Lower) General Chief Complaint: Extremity Injury, Lower Stated Complaint: lt knee injury Time Seen by Provider: 08/16/24 16:02 Source: patient, RN notes reviewed and old records reviewed Mode of arrival: ambulatory Limitations: no limitations History of Present Illness HPI Narrative: 59-year-old female presents to the [facility] with left knee pain post fall Tuesday 5 days. States he has tried calling or orthopedic, Dr. Young who referred her to the [facility]. Was not able to see year until September. Patient states she is concern for torn meniscus, discussed with patient that a orthopedic can do further evaluation that x-ray was negative Related Data Home Medications ?Medication ?Instructions ?Recorded ?Confirmed ?Last Taken ?Type amlodipine 10 mg tablet 10 mg PO DAILY 02/27/20 08/13/24 08/13/24 History bupropion HCl 150 mg 24 hr tablet, 150 mg PO DAILY 02/27/20 08/13/24 08/13/24 History extended release buspirone 15 mg tablet 15 mg PO BID 02/27/20 08/13/24 08/13/24 History citalopram 40 mg tablet 40 mg PO DAILY 02/27/20 08/13/24 08/13/24 History furosemide 20 mg tablet 20 mg PO DAILY 02/27/20 08/13/24 08/13/24 History losartan 100 mg tablet 100 mg PO DAILY 02/27/20 08/13/24 08/13/24 History metoprolol succinate 50 mg 50 mg PO DAILY 02/27/20 08/13/24 08/13/24 History tablet,extended release 24 hr spironolactone 50 mg tablet 50 mg PO DAILY 02/27/20 08/13/24 08/13/24 History trazodone 100 mg tablet 100 mg PO HS 02/27/20 08/13/24 08/01/23 History hydroxyzine HCl 25 mg tablet 25 mg PO DAILY 04/17/21 08/13/24 08/13/24 History clonazepam 0.5 mg tablet 0.5 mg PO DAILY PRN Anxiety 12/10/21 08/13/24 08/13/24 History cholecalciferol (vitamin D3) 1,250 1,250 mcg PO WEEKLY 12/22/22 08/13/24 08/01/23 History mcg (50,000 unit) capsule Allergies Allergy/AdvReac Type Severity Reaction Status Date / Time No Known Allergies Allergy Unknown Verified 08/16/24 15:42 Review of Systems Review of Systems: All systems reviewed & are unremarkable except as noted in HPI and below Constitutional: Constitutional: Reports no additional constitutional complaints ENT: Reports system reviewed and no additional complaints, except as documented Cardiovascular: Cardiovascular: Reports no additional cardiovascular complaints, Denies chest pain and Denies dyspnea Respiratory: Respiratory: Reports no additional respiratory complaints, Denies chest congestion, Denies cough and Denies dyspnea Musculoskeletal: Musculoskeletal: Reports as per HPI and Reports arthralgias Integumentary/Breasts: Skin/Breast: Reports system reviewed and no additional complaints, except as docu PMFSH Past Medical History Medical History Right knee DJD Colon cancer screening Odynophagia Dysphagia Lateral meniscus tear Chondromalacia of knee Medial meniscus tear Left knee DJD Left knee pain Chronic cholecystitis Obesity HLD (hyperlipidemia) Depression with anxiety GERD (gastroesophageal reflux disease) Sleep apnea HTN (hypertension) Surgical History Surgical History Hx laparoscopic cholecystectomy History of conization of cervix Family History Family History Father Hypertension Mother CHF (congestive heart failure) Social History Social History Years smoked: 30 Smoking status: Former smoker Tobacco type: cigarettes and e-cigarettes/vaping Smoking end date: 08/22/17 Additional smoking assessment comments: currently vapes Alcohol intake: former Substance use: never Substance use type: does not use Living arrangements: alone Occupation/Education: occupation 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 There is no relevant family history pertinent to the patient complaint. Exam Const: General: cooperative, healthy appearing, comfortable, no acute distress, well developed, alert and well nourished Nutritional Appearance: well nourished Orientation/consciousness: patient oriented x3 Limitations: no limitations HENMT: Head: normal to inspection Face and sinus: normal facial exam and face symmetric Eyes: General: appearance normal, both eyes and all related structures Neck: Neck: normal visual inspection, full ROM, no lymphadenopathy and no meningeal signs Chest: Chest palpation & inspection: normal inspection of the chest Resp: Effort & Inspection: normal respiratory effort and able to speak in complete sentences Auscultation: clear to auscultation bilaterally, no crackles, no rales, no rhonchi and no wheezes Cardio: Rate: regular rate Skin: General skin exam: normal color and no rashes or lesions noted Neuro: General: patient oriented x3, gait normal, moves all extremities and no meningeal signs Cognition (Neuro): normal cognition Speech: normal speech Gait exam (Neuro): Normal gait present Extrem: General: normal to inspection, full ROM, capillary refill normal and normal gait Left lower extremity: knee Details: tenderness (Lower aspect), swelling (Mild) and normal ROM; no abrasions, no lacerations, no ecchymosis, no penetrating wound and no deformity Psych: Appearance: grossly normal and well kempt Mental Status: mental status grossly normal Speech and movement: Normal speech and movement present and Clear speech present Affect: normal affect Attitude: cooperative Course Course Level of Care: Express Care Visit Vital Signs Vital signs: Vital Signs Temperature 98.2 F 08/16/24 15:26 Pulse Rate 83 08/16/24 15:26 Respiratory Rate 16 08/16/24 15:26 Blood Pressure 143/84 H 08/16/24 15:26 Pulse Oximetry 98 08/16/24 15:26 Oxygen Delivery Room Air 08/16/24 15:26 Temperature 98.2 F 08/16/24 15:26 Pulse Rate 83 08/16/24 15:26 Respiratory Rate 16 08/16/24 15:26 Blood Pressure 143/84 H 08/16/24 15:26 Pulse Oximetry 98 08/16/24 15:26 Oxygen Delivery Room Air 08/16/24 15:26 Reviewed MDM - Extremity Injury (Lower) MDM Narrative Medical decision making narrative: Patient sitting comfortably in exam room. Nontoxic, vitals stable. Patient in no acute distress. Patient 5 days post trip and fall landing on her left knee. Patient is concern for a meniscus tear. X-ray showed no acute findings. Patient is established with Dr. Young and will follow-up with him Patient outpatient with close follow-up Discharge instructions reviewed with patient, as well as provided in writing per nursing staff. The instructions also include specific and strict return/GO TO THE ER as well as f/u information. All questions have been answered, and the patient deny any further questions with discharge and discharge plan. Some parts of this dictation were generated by voice recognition software and may contain typographical and/or grammatical inaccuracies. Imaging Data Radiologist's impression: XR knee LT min 4V Ordering provider: Wendy Perez APRN History: . pain anterior left knee post fall 5 days ago . Comparison: None. FINDINGS: BONES: No acute fracture or dislocation. JOINT SPACES: Normal. SOFT TISSUES: Normal. IMPRESSION: No acute osseous abnormality left knee. Critical Care Time Critical Care Time Critical Care Time: No Discharge Plan Discharge Clinical Impression: Contusion of knee, left Qualifiers: Encounter type: initial encounter Qualified Code(s): S80.02XA - Contusion of left knee, initial encounter Patient Disposition: Home, Self-Care Condition: Stable Instructions: Antibiotic Form, Swollen Knee Joint (ED), Knee Pain (ED) Additional Instructions: Your Xray did not show a fracture. Ice should be applied to help reduce swelling. It can be used for 20 to 30 minutes, every 2-3 hours while awake. Do not apply ice directly to your skin. An Camilo wrap can help support your knee or if you have a brace at home it is recommended to wear it. You can alternate ibuprofen 600mg and Tylenol 650mg every 4 hours as needed for pain Please schedule a follow-up visit with your personal physician for further evaluation and treatment within 2 weeks especially if symptoms persist. For new or worsening symptoms go directly to the emergency room Patient Language: Swedish Prescriptions: No Action cholecalciferol (vitamin D3) 1,250 mcg (50,000 unit) capsule 1,250 mcg PO WEEKLY Rx Instructions: SUNDAYS citalopram 40 mg tablet 40 mg PO DAILY metoprolol succinate 50 mg tablet extended release 24 hr 50 mg PO DAILY trazodone 100 mg tablet 100 mg PO HS amlodipine 10 mg tablet 10 mg PO DAILY furosemide 20 mg tablet 20 mg PO DAILY losartan 100 mg tablet 100 mg PO DAILY bupropion HCl 150 mg tablet extended release 24 hr 150 mg PO DAILY hydroxyzine HCl 25 mg tablet 25 mg PO DAILY clonazepam 0.5 mg tablet 0.5 mg PO DAILY PRN (Reason: Anxiety) spironolactone 50 mg tablet 50 mg PO DAILY buspirone 15 mg Tablet 15 mg PO BID omeprazole 40 mg capsule,delayed release(DR/EC) See Rx Instructions .ROUTE .COMPLEX Qty: 60 11RF Dose Instruction: Take 1 capsule by mouth twice daily Rx Instructions: Take 1 capsule by mouth twice daily Follow-up/Referrals: Juan Antonio Gamboa MD [Physician] - 1 Week ([facility] follow-up) UNKNOWN,DOCTOR [Primary Care Provider] - Stand Alone Forms: Work/School Release IP Time of Disposition: 16:09
== END 2024-08-16 16:15 | disposition home or self-care (01) ==
PROVIDERS: Emergency Provider Nurse Practitioner
DX: S80.02XA Contusion of left knee, initial encounter (principal); W19.XXXA Unspecified fall, initial encounter; F17.290 Nicotine dependence, other tobacco product, uncomplicated; I10 Essential (primary) hypertension; E78.5 Hyperlipidemia, unspecified; K21.9 Gastro-esophageal reflux disease without esophagitis; M17.0 Bilateral primary osteoarthritis of knee; E66.9 Obesity, unspecified; Z68.30 Body mass index [BMI] 30.0-30.9, adult; F41.8 Other specified anxiety disorders
CPT/HCPCS: 73564; 99213; G0463

== ENCOUNTER 2024-08-20 07:34 | Emergency (ER) | payer OTHER, SELFPAY ==
[2024-08-20 07:43] VITALS: BP 123/73; PULSE 73; RESP 17; TEMP 36.6; O2SAT 97
--- NOTE | 2024-08-20 07:51 | ED.LOWEXIN ---
HPI - Extremity Injury (Lower) General Chief Complaint: Extremity Injury, Lower Stated Complaint: left knee Time Seen by Provider: 08/20/24 07:39 Source: patient Mode of arrival: ambulatory Limitations: no limitations History of Present Illness HPI Narrative: 59-year-old with a history of hypertension, anxiety and depression status post meniscal tear repair in the knees here with the complaints of left knee pain for past 1 week patient states that she fell a week ago, was seen at Urgent Care had an x-ray done which was negative still continues to have pain in the knee and has been taking ibuprofen 4 times a day with no significant relief wants an MRI of her knee. She an appointment to see Dr. Lauren on Aug 28 . complaint: knee injury (left) Onset (ago): week(s) (1) Type of Injury: other (fall) Place: home Severity: moderate Exacerbating factors: movement Context: fall Other symptoms: none Related Data Home Medications ?Medication ?Instructions ?Recorded ?Confirmed ?Last Taken ?Type amlodipine 10 mg tablet 10 mg PO DAILY 02/27/20 08/13/24 08/13/24 History bupropion HCl 150 mg 24 hr tablet, 150 mg PO DAILY 02/27/20 08/13/24 08/13/24 History extended release buspirone 15 mg tablet 15 mg PO BID 02/27/20 08/13/24 08/13/24 History citalopram 40 mg tablet 40 mg PO DAILY 02/27/20 08/13/24 08/13/24 History furosemide 20 mg tablet 20 mg PO DAILY 02/27/20 08/13/24 08/13/24 History losartan 100 mg tablet 100 mg PO DAILY 02/27/20 08/13/24 08/13/24 History metoprolol succinate 50 mg 50 mg PO DAILY 02/27/20 08/13/24 08/13/24 History tablet,extended release 24 hr spironolactone 50 mg tablet 50 mg PO DAILY 02/27/20 08/13/24 08/13/24 History trazodone 100 mg tablet 100 mg PO HS 02/27/20 08/13/24 08/01/23 History hydroxyzine HCl 25 mg tablet 25 mg PO DAILY 04/17/21 08/13/24 08/13/24 History clonazepam 0.5 mg tablet 0.5 mg PO DAILY PRN Anxiety 12/10/21 08/13/24 08/13/24 History cholecalciferol (vitamin D3) 1,250 1,250 mcg PO WEEKLY 12/22/22 08/13/24 08/01/23 History mcg (50,000 unit) capsule Allergies Allergy/AdvReac Type Severity Reaction Status Date / Time No Known Allergies Allergy Unknown Verified 08/20/24 07:47 Review of Systems Review of Systems: All systems reviewed & are unremarkable except as noted in HPI and below Constitutional: Constitutional: Reports no additional constitutional complaints Eyes: Eyes: Reports no additional eye complaints ENT: Reports system reviewed and no additional complaints, except as documented Cardiovascular: Cardiovascular: Reports no additional cardiovascular complaints Respiratory: Respiratory: Reports no additional respiratory complaints Gastrointestinal: Gastrointestinal: Reports no additional gastrointestinal complaints Musculoskeletal: Musculoskeletal: Reports as per HPI Neurologic: Reports system reviewed and no additional complaints, except as documented Endocrine: Endocrine: Reports no additional endocrine complaints Hematologic/Lymphatic: Hematologic/Lymphatic: Reports no additional hematologic/lymphatic complaints PMFSH Past Medical History Medical History Right knee DJD Colon cancer screening Odynophagia Dysphagia Lateral meniscus tear Chondromalacia of knee Medial meniscus tear Left knee DJD Left knee pain Chronic cholecystitis Obesity HLD (hyperlipidemia) Depression with anxiety GERD (gastroesophageal reflux disease) Sleep apnea HTN (hypertension) Surgical History Surgical History Hx laparoscopic cholecystectomy History of conization of cervix Family History Family History Father Hypertension Mother CHF (congestive heart failure) Social History Social History Years smoked: 30 Smoking status: Former smoker Tobacco type: cigarettes and e-cigarettes/vaping Smoking end date: 08/22/17 Additional smoking assessment comments: currently vapes Alcohol intake: former Substance use: never Substance use type: does not use Living arrangements: alone Occupation/Education: occupation 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 HEAD: Normocephalic, atraumatic. EYES: PERRLA and EOMI. NECK: Supple. CHEST: Clear to auscultation. No respiratory distress. HEART: Regular rate and rhythm. No murmur heard. Normal peripheral pulses. EXTREMITIES: Normal range of motion. No edema. Examination of the left knee shows no deformity, effusion pain on the medial aspect of the knee. SKIN: Warm, dry, no rash. NEURO: No focal deficits. Alert and oriented x3. PSYCH: Normal mood and affect. Course Course Emergency Course: Informed patient that we would not be able to do MRI of the knee to the emergency room. Has to contact her primary doctor or orthopedic doctor and get MRI scheduled on outpatient basis. Well there were pain medication and Camilo wrap her knee Vital Signs Vital signs: Vital Signs Temperature 36.6 C 08/20/24 07:43 Pulse Rate 73 08/20/24 07:43 Respiratory Rate 17 08/20/24 07:43 Blood Pressure 123/73 08/20/24 07:43 Pulse Oximetry 97 08/20/24 07:43 Oxygen Delivery Room Air 08/20/24 07:43 Temperature 36.6 C 08/20/24 07:43 Pulse Rate 73 08/20/24 07:43 Respiratory Rate 17 08/20/24 07:43 Blood Pressure 123/73 08/20/24 07:43 Pulse Oximetry 97 08/20/24 07:43 Oxygen Delivery Room Air 08/20/24 07:43 Discharge Plan Discharge Clinical Impression: Knee joint pain Qualifiers: Laterality: left Qualified Code(s): M25.562 - Pain in left knee Patient Disposition: Home, Self-Care Condition: Stable Instructions: Antibiotic Form, Knee Pain (ED) Additional Instructions: Take pain medication as prescribed, contact a primary doctor or orthopedic doctor for further management. Patient Language: Maltese Prescriptions: New hydrocodone-acetaminophen 5-325 mg tablet 1 tablet PO Q8H PRN (Reason: pain) Qty: 14 0RF hydrocodone-acetaminophen 5-325 mg tablet 1 tablet PO Q8H PRN (Reason: pain) Qty: 14 0RF No Action cholecalciferol (vitamin D3) 1,250 mcg (50,000 unit) capsule 1,250 mcg PO WEEKLY Rx Instructions: SUNDAYS citalopram 40 mg tablet 40 mg PO DAILY metoprolol succinate 50 mg tablet extended release 24 hr 50 mg PO DAILY trazodone 100 mg tablet 100 mg PO HS amlodipine 10 mg tablet 10 mg PO DAILY furosemide 20 mg tablet 20 mg PO DAILY losartan 100 mg tablet 100 mg PO DAILY bupropion HCl 150 mg tablet extended release 24 hr 150 mg PO DAILY hydroxyzine HCl 25 mg tablet 25 mg PO DAILY clonazepam 0.5 mg tablet 0.5 mg PO DAILY PRN (Reason: Anxiety) spironolactone 50 mg tablet 50 mg PO DAILY buspirone 15 mg Tablet 15 mg PO BID omeprazole 40 mg capsule,delayed release(DR/EC) See Rx Instructions .ROUTE .COMPLEX Qty: 60 11RF Dose Instruction: Take 1 capsule by mouth twice daily Rx Instructions: Take 1 capsule by mouth twice daily Follow-up/Referrals: UNKNOWN,DOCTOR [Primary Care Provider] - Juan Antonio Gamboa MD [Physician] - Time of Disposition: 08:08
--- OUTSIDE RECORDS SUMMARY | 2024-08-27 06:44 | XMS_ITS | Encounter Summary ---
Author Organization [facility] Address [address] [place] [id number] Care Team Providers Care Puddler Helper Name Role Phone Unavailable Primary Care Provider Unavailabl e Encounter Details Date Type Department Care Team (Late st Contact Info) Description 07/22/2020 1:00 PM CARPENTER INSPECTOR Rapid Evaluation [place] [facility] Community Testing [place] [address] [place] [address] Social History Tobacco Use Types Packs/Day Years Used Date Smoking Tobacco: Never Assessed Comments Unknown Sex and Gender Information Value Date Recorded Sex Assigned at Not on file Legal Sex Female 12:48 PM CARPENTER 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
--- OUTSIDE RECORDS SUMMARY | 2024-08-27 06:44 | XMS_ITS | Encounter Summary ---
Author Organization [facility] Address [address] [place] [id number] Care Team Providers Care Mechanical Energy Engineer Name Role Phone Unavailable Primary Care Provider Unavailabl e Encounter Details Date Type Department Care Team (Late st Contact Info) Description 07/22/2020 Lab Requisition [facility] Community [facility] [address] [place], [place] [id number] [place] [id number] [place] [address] Social History Tobacco Use Types Packs/Day Years Used Date Smoking Tobacco: Never Assessed Comments Unknown Sex and Gender Information Value Date Recorded Sex Assigned at Not on file Legal Sex Female 12:48 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
--- OUTSIDE RECORDS SUMMARY | 2024-08-27 06:44 | XMS_ITS | Clinical Summary ---
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 Gender Identity Not on file Sexual Orientation Not on file Plan of Treatment Health Maintenance Due Date Last Done Comments Hepatitis C Virus (HCV) Screening 1964 TdaP Immunization 1964 Hepatitis B Immunization (1 of 3 - 19+ 3-dose series) 1983 Pap Smear 1985 Cervical Cancer Screening (CCS) 1994 HPV/Cotest 1994 Colonoscopy 2009 Colorectal Cancer Screening 2009 Cologuard 2014 Immunochemical Fecal Occult Blood 2014 Mammogram 2014 Zoster Immunization (1 of 2) 2014 SARS-COV-2 Immunization ( season) 2023 Influenza Immunization (Seas on Ended) 2024 05/22/2020, 05/06/2019 Meningococcal Immunization (ACWY) Aged Out No longer eligible b ased on patient's age to complete this topic Pneumococcal Immunization Combined Aged Out No longer eligible b ased on patient's age to complete this topic Rotavirus Immunization Aged Out No lo nger eligible based on patient's age to complete this topic
--- OUTSIDE RECORDS SUMMARY | 2024-08-27 06:44 | XMS_ITS | Continuity of Care Document ---
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 spironolactone 50 mg tablet take 1 tablet by oral route every day 50 MG - Active losartan 100 mg tablet take 1 tablet by oral route every day 100 MG - Active Celexa 40 mg tablet take 1 tablet (40MG) by oral route every day - Active Toprol XL 50 mg tablet,extended release take 1 tablet (50MG) by oral route every day - Active omeprazole 20 mg tablet,delayed release take 1 tablet by oral route every day 1 tablet - Active Lasix 20 mg tablet take 1 tablet by oral route 2 times every day 20 MG - Active Wellbutrin XL 150 mg 24 hr tablet, extended release take 1 tablet by oral route every morning 150 MG - Active Lipitor 40 mg tablet take 1 tablet by oral route every day 40 MG - Active EpiPen 2-Marino 0.3 mg/0.3 mL injection, auto-injector inject 0.3 milliliter (0.3MG) by intramuscular route once as needed for anaphylaxis - Active PRN for bee sting Procedures Procedure Date PREV VISIT, EST, AGE 40-64 OFFICE/OUTPATIENT VISIT, EST OFFICE/OUTPATIENT VISIT, EST OFFICE/OUTPATIENT VISIT, EST OFFICE/OUTPATIENT VISIT, EST OFFICE/OUTPATIENT VISIT, EST OFFICE/OUTPATIENT VISIT, EST PREV VISIT, EST, AGE 40-64 OFFICE/OUTPATIENT VISIT, EST OFFICE/OUTPATIENT VISIT, EST OFFICE/OUTPATIENT VISIT, EST OFFICE/OUTPATIENT VISIT, EST OFFICE/OUTPATIENT VISIT, EST OFFICE/OUTPATIENT VISIT, EST OFFICE/OUTPATIENT VISIT, EST PREV VISIT, EST, AGE 40-64 OFFICE/OUTPATIENT VISIT, EST OFFICE/OUTPATIENT VISIT, EST OFFICE/OUTPATIENT VISIT, EST OFFICE/OUTPATIENT VISIT, EST OFFICE/OUTPATIENT VISIT, EST PREV VISIT, EST, AGE 40-64 OFFICE/OUTPATIENT VISIT, EST OFFICE/OUTPATIENT VISIT, EST OFFICE/OUTPATIENT VISIT, EST OFFICE/OUTPATIENT VISIT, EST OFFICE/OUTPATIENT VISIT, EST OFFICE/OUTPATIENT VISIT, EST OFFICE/OUTPATIENT VISIT, EST PREV VISIT, NEW, AGE 40-64 Advance Directives Directive Yes / No Effective Date File Name No Information Encounters Encounter Description Practice Location Reason(s) For Visit Diagnoses Date Provider Providers Copied on Encounter [facility], [address] [place], [address], tel:[phone] [facility] Medicine No Information 9 Yury Naidu. [address] [place], [address]. tel:[phone] Referring Provider: Toy Soler [facility] [place], [address]. tel:[phone] PREV VISIT, EST, AGE 40-64 [facility], [address], [place], [address], [place] tel:[phone] [facility] PHysical (chief complaint) Encounter for general adult medical exam w abnormal findingsPain in left fingerEssential (primary) hypertensionGeneral ized anxiety disorderHyperlipide miaAlcohol dependence Fe-0 9 Yury Naidu. [address], [place], [address]. tel:[phone] Referring Provider: Toy Soler [address], [place], [address]. tel:[phone] OFFICE/OUTPA TIENT VISIT, [facility], [address], [place], [address], [place] tel:[phone] [facility] HTN (chief complaint) anxiety (chief complaint) anxiety1 (chief complaint) breast1 (chief complaint) Encounter for oth screening for malignant neoplasm of breastGeneralized anxiety disorderEssential (primary) hypertensionEdema 8 Yury Taylor [address], [address], [place], [address]. [phone] Referring Provider: Toy Soler [address], [place], [address]. tel:[phone] OFFICE/OUTPA TIENT VISIT, [facility], [address], [place], [address], [place] tel:[phone] [facility] HTN (chief complaint) anxiety1 (chief complaint) back pain1 (chief complaint) sleep apnea1 (chief complaint) EdemaEssential (primary) hypertensionGeneral ized anxiety disorderEncounter for screening for malignant neoplasm of colonTobacco useSleep apnea 8 Yury Taylor [address], [address], [place], [address]. [phone] Referring Provider: Toy Soler [address], [place], [address]. tel:[phone] OFFICE/OUTPA TIENT VISIT, [facility], [address], [place], [address], tel:[phone] [facility] HTN (chief complaint) edema1 (chief complaint) anxiety1 (chief complaint) back pain1 (chief complaint) EdemaEssential (primary) hypertensionLumbago with sciatica, right sideGeneralized anxiety disorder 8 Yury Naidu. [address], [address], [place], [address]. tel:[phone] Referring Provider: Evangelista Cotton, [address], [place], [address]. tel:[phone] OFFICE/OUTPA TIENT VISIT, [facility], [address], [place], [address], tel:[phone] [facility] HLP (chief complaint) vitamin1 (chief complaint) anxiety1 (chief complaint) HTN (chief complaint) Body mass index (BMI) 34.0-34.9, adultHyperlipidemia Essential (primary) hypertensionEdemaGe neralized anxiety disorder 8 Yury Naidu. [address], [place], [address]. tel:[phone] Referring Provider: Toy Soler [address], [place], [address]. tel:[phone] OFFICE/OUTPA TIENT VISIT, [facility], [address], [place], [address], [place] tel:[phone] [facility] GERD1 (chief complaint) anxity1 (chief complaint) bee sting (chief complaint) Generalized Anxiety DisorderBee allergy statusGERD without esophagitisHyperlip idemia 8 Yury Naidu. [address], [place], [address]. tel:[phone] Referring Provider: Toy Soler [address], [place], [address]. tel:[phone] PREV VISIT, EST, AGE 40-64 [facility], [address], [place], [address], [place] tel:[phone] [facility] Physical (chief complaint) Essential (primary) hypertensionGeneral ized Anxiety DisorderEncounter for general adult medical exam w abnormal findingsEdema 7 Yury Taylor [address], [address], [place], [address]. [phone] Referring Provider: Toy Soler [address], [place], [address]. tel:[phone] OFFICE/OUTPA TIENT VISIT, [facility], [address], [place], [address], tel:[phone] [facility] sinus (chief complaint) anxity1 (chief complaint) HTN (chief complaint) Generalized Anxiety DisorderAcute upper respiratory infection, unspecifiedEssentia l (primary) hypertensionBody mass index (BMI) 34.0-34.9, adult 7 Yury Taylor [address], [address], [place], [address]. [phone] OFFICE/OUTPA TIENT VISIT, [facility], [address], [place], [address], [place] tel:[phone] [facility] HTN (chief complaint) anxiety1 (chief complaint) GERD1 (chief complaint) Essential (primary) hypertensionGERD without esophagitisGenerali zed Anxiety DisorderBee allergy status 7 Yury Taylor [address], [address], [place], [address]. [phone] Referring Provider: Toy Soler [address], [place], [address]. tel:[phone] OFFICE/OUTPA TIENT VISIT, [facility], [address], [place], [address], [place] tel:[phone] [facility] HLP (chief complaint) anxity1 (chief complaint) edema1 (chief complaint) HTN (chief complaint) GERD1 (chief complaint) Essential (primary) hypertensionHyperli pidemiaGeneralized Anxiety DisorderGERD without esophagitis 7 Yury Taylor [address], [place], [address]. tel:[phone] Referring Provider: Toy Soler [address], [place], [address]. tel:[phone] OFFICE/OUTPA TIENT VISIT, EST [facility], [address], [place], [address], tel:[phone] [facility] anxiety1 (chief complaint) glucose (chief complaint) GERD1 (chief complaint) HLP (chief complaint) HyperlipidemiaHyper glycemiaHypokalemia GERD without esophagitis Yury Naidu. [address], [place], [address]. [phone] Referring Provider: Toy Soler [address], [place], [address]. tel:[phone] OFFICE/OUTPA TIENT VISIT, [facility], [address], [place], [address], [place] tel:[phone] [facility] calf nodule1 (chief complaint) Lipoma 7 Yury Naidu. [address], [place], [address]. [phone] Referring Provider: Toy Soler [address], [place], [address]. tel:[phone] OFFICE/OUTPA TIENT VISIT, EST [facility], [address], [place], [address], [place] tel:[phone] [facility] HLP (chief complaint) low K (chief complaint) glucose1 (chief complaint) HyperlipidemiaHypok alemiaHyperglycemia Body mass index (BMI) 33.0-33.9, adult 6 Yury Naidu. [address], [place], [address]. tel:[phone] Referring Provider: Toy Soler [address], [place], [address]. tel:[phone] PREV VISIT, EST, AGE 40-64 [facility], [address], [place], [address], [place] tel:[phone] [facility] PHysical (chief complaint) Encounter for general adult medical exam w abnormal findingsGERD without esophagitisEssentia l (primary) hypertensionGeneral ized Anxiety Disorder 6 Yury Naidu. [address], [place], [address]. tel:[phone] Referring Provider: Evangelista Cotton, [address], [place], [facility]. tel:[phone] OFFICE/OUTPA TIENT VISIT, [facility], [address], [place], [address], tel:[phone] [facility] HTN (chief complaint) GERD1 (chief complaint) anxiety1 (chief complaint) breast (chief complaint) Essential (primary) hypertensionGERD without esophagitisGenerali zed Anxiety DisorderEdema 6 Yury Naidu. [address], [place], [facility]. tel:[phone] Referring Provider: Evangelista Cotton, [address], [place], [facility]. tel:[phone] OFFICE/OUTPA TIENT VISIT, [facility], [address], [place], [address], tel:[phone] [facility] HTN (chief complaint) anxiety1 (chief complaint) GERD1 (chief complaint) Gastro-esophageal reflux disease without esophagitisGenerali zed anxiety disorderEssential (primary) hypertensionEdema 6 Yury Naidu. [address], [place], [facility]. tel:[phone] Referring Provider: Evangelista Cotton, [address], [place], [address]. tel:[phone] OFFICE/OUTPA TIENT VISIT, [facility], [address], [place], [address], [place] tel:[phone] [facility] HTN (chief complaint) anxiety1 (chief complaint) GERD1 (chief complaint) edema (chief complaint) sleep apnea1 (chief complaint) Essential (primary) hypertensionGeneral ized anxiety disorderSleep apneaGERD without esophagitis Feb- 6 Yury Naidu. [address], [place], [address]. tel:[phone] Referring Provider: Toy Soler [address], [place], [address]. tel:[phone] OFFICE/OUTPA TIENT VISIT, EST [facility], [address], [place], [address], tel:[phone] [facility] HTN1 (chief complaint) hyperglyce toni (chief complaint) HLP1 (chief complaint) macrocytos is1 (chief complaint) Essential (primary) hypertensionHypergl ycemiaOther specified disease of bloodMixed hyperlipidemia 5 Yury Naidu. [address], [place], [address]. [phone] Referring Provider: Toy Soler [facility] A, [place], [place], [facility]. tel:[phone] PREV VISIT, EST, AGE 40-64 [facility], [address], [place], [address], [place] tel:[phone] [facility] Physical (chief complaint) Encntr for general adult medical exam w/o abnormal findings 5 Yury Naidu. [address], [place], [address]. tel:[phone] Referring Provider: Toy Soler [facility] A, [place], [address]. tel:[phone] OFFICE/OUTPA TIENT VISIT, EST [facility], [address], [place], [address], [place] tel:[phone] [facility] HTN (chief complaint) sleep apnea (chief complaint) Anxiety (chief complaint) GERD (chief complaint) Dietary surveillance and counselingEdemaUnsp ecified essential hypertensionUnspeci fied sleep apneaEsophageal reflux 5 Yury Naidu. [address], [place], [address]. tel:[phone] Referring Provider: Evangelista Cotton, [address], [place], [address]. tel:[phone] OFFICE/OUTPA TIENT VISIT, [facility], [address], [place], [address], tel:[phone] [facility] Anxiety (chief complaint) sleep apnea (chief complaint) GERD (chief complaint) edema (chief complaint) Dietary surveillance and counselingGERDSleep ApneaGeneralized anxiety disorderEdema 5 Yury Naidu. [address], [place], [address]. tel:[phone] Referring Provider: Toy Soler [address], [place], [address]. tel:[phone] OFFICE/OUTPA TIENT VISIT, [facility], [address], [place], [address], [place] tel:[phone] [facility] sleep apnea (chief complaint) anxiety (chief complaint) HTN (chief complaint) Dietary surveillance and counselingSleep ApneaHypertension, UnspecifiedGenerali zed anxiety disorderBody Mass Index 34.0-34.9, adult 5 Yury Naidu. [address], [place], [address]. tel:[phone] Referring Provider: Toy Soler [address], [place], [address]. tel:[phone] OFFICE/OUTPA TIENT VISIT, [facility], [address], [place], [address], [place] tel:[phone] [facility] rash (chief complaint) Pulmonary HTN (chief complaint) Contact dermatitis and other eczema due to other specified agentsPulmonary Hypertension, PrimaryMurmurSleep Apnea 5 Yury Naidu. [address], [place], [address]. tel:[phone] Referring Provider: Toy Soler [address], [place], [address]. tel:[phone] OFFICE/OUTPA TIENT VISIT, [facility], [address], [place], [address], [place] tel:[phone] [facility] HTN (chief complaint) GERD (chief complaint) anxiety (chief complaint) GERDHypertension, UnspecifiedGenerali zed anxiety disorderMurmur 4 Yury Naidu. [address], [place], [address]. tel:[phone] Referring Provider: Evangelista Cotton, [address], [place], [address]. tel:[phone] OFFICE/OUTPA TIENT VISIT, [facility], [address], [place], [address], [place] tel:[phone] [facility] HTN (chief complaint) GERD (chief complaint) anxiety (chief complaint) Dietary surveillance and counselingGERDHyper tension, UnspecifiedGenerali zed anxiety disorder 4 Yury Naidu. [address], [place], [address]. tel:[phone] Referring Provider: Toy Soler [address], [place], [address]. tel:[phone] OFFICE/OUTPA TIENT VISIT, [facility], [address], [place], [address], [place] tel:[phone] [facility] TG (chief complaint) HTN (chief complaint) GERD (chief complaint) sick (chief complaint) Dietary surveillance and counselingHypertens ion, UnspecifiedOther and unspecified hyperlipidemiaGERD 4 Yury Naidu. [address], [place], [address]. tel:[phone] Referring Provider: Toy Soler [address], [place], [address]. tel:[phone] PREV VISIT, NEW, AGE 40-64 [facility], [address], [place], [address], [place] tel:[phone] [facility] Physical (chief complaint) Routine Medical ExamDietary surveillance and counselingRoutine Medical Exam 4 Yury Naidu. [address], [place], [address]. tel:[phone] Family History Family Member Type Diagnosis Age At Onset Mother Problem (finding) CHF Father Problem (finding) Hypertension Brother Problem (finding) Alive and well Payers Payer name Insurance type Covered constitution party ID Authoriza tion(s) No Information Social History Type Description Quantity Date Captured Comments Alcohol Use Details Unknown Caffeine Use Details Unknown Tobacco Use Status No Information Smoking Status No Information Sex Female Chief Complaint And Reason For Visit No Information Plan Of Treatment Date Type Action Status Goal Tobacco cessation counseling completed Goal Special diet education compl eted Goal Special diet education compl eted Goal Special diet education compl eted Goal Special diet education compl eted Goal Prescribed dietary intake co mpleted Goal Tobacco cessation counseling completed Goal Tobacco cessation counseling completed Goal Tobacco cessation counseling completed Goal Tobacco cessation counseling completed Goal Tobacco cessation counseling completed Goal Tobacco cessation counseling completed Goal Tobacco cessation counseling completed Referral Ordered: Maulik Obrien -[facility] : Surgery (related to Pain in left finger) ordered Referral Ordered: FINGER XRAY ordered Referral Referred To: Maulik Obrien [address] [place] [id number] Ordered: Referrals: [facility] : Surgery. Maulik Obrien. Evaluate and treat ordered Referral Ordered: Physical Therapy (related to Lumbago with sciatica, right side) ordered Referral Ordered: LUMBAR XRAY AP AND LAT ONLY ordered Referral Referred To: Physical Therapy Ordered: Referrals: Physical Therapy ordered Referral Ordered: Maulik Obrien (related to Edema) ordered Referral Referred To: Maulik Obrien [address] [place], [id number] Ordered: Referrals: Maulik Obrien. Evaluate and treat ordered Referral Ordered: DXA BONE DENSITY, AXIAL ordered Referral Ordered: Pulmonary Diseases (related to Sleep apnea) ordered Referral Ordered: COLONOSCOPY AND BIOPSY ordered Referral Ordered: Referral: Pulmonary Diseases. ordered Referral Ordered: DOPPLER ECHO EXAM, HEART ordered Referral Ordered: CT ABD & PELVIS W/O CONTRAST ordered Referral Ordered: MAMMOGRAM, SCREENING ordered History Of Present Illness Encounter Date Complaint History Of Prese nt Illness PHysical Pt needs annual physical. Pt fell by accident 2 months ago and she injured her left middle finger. Pt notices crooked left middle finger since the fall about one week before . Pt never sought medical attention. Pt notices mild pain sometimes. Pt denies any numbness. Pt also has HTN. Pt takes spironolactone, losartan, and toprol and her BP is stable. Pt has chronic GERD Pt takes omeprazole and doing ok. pt also has HLP Pt takes lipitor. Pt denies any myalgia. pt has chronic anxiety and depression. Pt takes celexa and xanax PRn. Pt denies any suicidal or homicidal thought .Pt denies any crying spells HTN pt takes losarta n, toprol and spironolactone. her BP is good today. Pt is off norvasc. 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 Patient denies any suicidal homicidal thoughts. Patient denies any crying spells. Patient takes wellbutrin and celexa and Xanax and doing okay. Patient noticed more motivation. Patient denies any hopelessness. breast1 Patient denies a ny paresthesia in the from annual exam patient needs a mammogram HTN Pt has been taki ng losartan, toprol, spironolactone and her BP at home is around 120/80 Pt is off norvasc Her BP is slightly high today. Her swelling is much improved. Pt denies any chest pain or headache anxiety1 Pt has chronic a nxiety and depression Pt takes celexa, Wellbutrin, trazodone and also buspar Pt sees psychiatrist Pt denies any suicidal or homicidal thought Pt denies any crying spells back pain1 Pt has chronic l ow back pain Pt denies any worsening pain Pt denies any loss of bladder control Pt has not done PT or x ray yet pt denies any injury sleep apnea1 Pt uses cpap nig htly and is complaint Pt feels well. anxiety1 Pt has chronic a nxiety and depression, pt takes celexa, wellbutrin, xanax. Pt just seen psychiatrist and she was just started on buspar and trazodone which is not helping that much at all. Pt denies any suicidal or homicidal thought. Pt is doing counseling also. Pt denies any crying spells back pain1 Pt has chronic l ow back pain with right sciatica and right upper leg Pt notices some right leg numbness. pt denies any loss of bladder control. Pt has above symptoms for 5 years Pt denies any injury. pt does stand on her a lot at work. pt denies any calf pain or any recent travel or bedrest HTN Pt takes norvasc , losartan/hctz, Toprol for HTN. Her BP is normal. pt states that her BP is around 120/80 at home edema1 Pt has chronic L E edema. Pt states that her left foot swells more than right side Pt denies any chest pain or sob Pt states that the swelling is always worse at night then in the morning. Pt denies any PND or orthopnea HLP Pt has mildly hi gh TG. Pt takes lipitor pt denies any myalgia vitamin1 Pt has low b12 a nd low D. Pt feels mildly fatigue anxiety1 Pt has chronic a nxiety and depression. pt takes wellbutrin and xanax and celexa and doing ok. pt denies any suicidal or homicidal thought. Pt denies any crying spells HTN Pt takes toprol, norvasc and losartan/hctz. her BP is stable. Pt denies any chest pain GERD1 Pt states that s he has severe GERD without omeprzole. Pt failed zantac. Pt starts to vomit if she does not haev omeprazole daily. EGD showed gastritis, recently anxity1 Pt has chronic a nxiety and depresion Pt takes celexa and wellbutrin and xanax PRn. pt denie any suicidal or homicdial thought. P takes 1 or sometimes 2 xanax per day depending on her stress level. Pt run out of xanax frequently. bee sting Pt has bee sting allergy. her epipen . Pt has anaphylactic reaction towards bee stings. Physical Pt needs annual physical. Pt has chronic anxiety and depression. Pt takes celexa wellburin and xanax PRn and doing ok. Pt denies any suicidal or homicidal thought. Pt states that she has been out of celexa for 3 weeks and pharmacy keeps telling her to call office. Pt has HLp. Pt takes lipitor ,Pt denies any myalgia, Pt has chornic HTN. Pt takes norvasc, losartan and toprol and her BP is stable. Pt also has chronic GERd and she takes omeprazole and doing ok. pt has LE edema and she takes lasix and KCL and doing ok. Pt denies any new complaints sinus Pt c/o recurrent and persistent sinus congestion, left ear pain, sore throat, productive coughing for 3 weeks. Pt denies any fever, chil. pt denies any recent travel or sick contact. Pt states taht she treied OTC but could not get rid of it anxity1 Pt has chronic a nxiety and depression. Pt takes ceelxa and xanax and wellbutri. pt needs xanax refilled. Pt denies any suicidal or homicidal thought. Pt denies any cyring spells HTN Pt takes norvasc , metoprolol and losartan and her BP iss borderline. Pt denies any chest pain or headache HTN Pt has HTN. Pt t akes toprol, norvac and losartan.hctz and her bp is stable. pt denies any chest pain or headahce anxiety1 Pt has chronic a nxiety and depression Pt take celxa and xanax and wellbutrin and doing ok Pt denies any suicidal or homicidal thought GERD1 Pt has GERD Pt u nable to tolerate zantac. Pt takes omeprzole daily and doing ok. Pt has gastritis. Pt denies any abd apin HLP Pt has HLP. Pt t akes lipitor and her lipid proflie is ok. Pt has mild high tG Pt denie any myalgia. Pt has mild high glucose but no DM anxity1 Pt has chronic a nxiety and depression. Pt takes celexa and xanax. Pt has been feeling more depressed lately. pt has been having crying spells. Pt feels more depressed lately. Pt denie any suicidal or homicidal thought. edema1 Pt has LE edema. Pt takes lasix and KCL and doing ok Pt denies any sob. HTN Pt has HTN and s he takes toprol, norvasc and losarta,hctz. Pt doing ok. Pt denies any chest apin or headache GERD1 Pt has daily ANTONIETA D and she states that zantac does not help. Pt has GERD daily. No abd pain HLP Pt has high TC a nd TG Pt is not very good with low fat and low carb diet. Pt drinks soda anxiety1 Pt has chronic a nxiety and depression Pt takes celexa and xanax and doing ok. Pt denies any suicidal or homicidal thought glucose Pt has normal gl ucose and A1c Pt denies any polyuria, polydipsia GERD1 Pt has mild GERD and she has been taking omeprzole but insurance no longer covers it. Pt denies any abd pain or GERD calf nodule1 Pt notices a non tender nodule left calf area for 4 weeks. Pt denies any pain. Pt denies any SOB or chest pain. pt denies any recent travel or bedrest. Pt went to ER and she had negative venous duplex doppler study. Pt has been massaging the area. Pt denies any pain HLP Pt has HLP. Pt h as high TC and TG Pt only drinks socially. Pt does drink a lot of soda and starchy food. Pt denies any chest pain low K Pt takes lasix B ID and KCL daily. her KCL is low. Pt denies any chest pain or headache glucose1 Pt has mildly hi gh glucose. Pt does not have any polyuria, polydipsia PHysical Pt needs annual physical. Pt has chronic anxiety and depression. Pt takes celexa and xanax and doign ok. Pt denies any suiidal or homicidal thought. Pt denie any cyring spells . Pt has HTn and she takes losartan and norvasc and toprol and her BP is stable. Pt denies any chestp ain. Pt also has GERd and she takes omeprazole daily. Pt states that she canot tolerate iwthout omeprazole. Pt denies any other complaints HTN Pt has HTn. Pt t akes losatan.HCTZ and also norvasc and toprol. Pt denies any chest pain or headache. GERD1 Pt has GERD. Pt has gastritis Pt takes omeprazole. Pt states that she has gERD without omeprazole Pt failed zantac. anxiety1 Pt has chronic a nxiety and depression. Pt takes celexax and xanax and she feels more anxious lately. pt wants to try higher dose of xanax. Pt denies any suicidal or homicdial thought breast Additional infor mation: Pt has large breast. Pt has double DD Pt has midback pain from her breast. PT wants breast reduction. HTN Pt has HTN and s he takes toprol, norvasc and losatan.HCZ and her BP is stable. Pt denies any chest apin or headache anxiety1 Pt has chronic a nxiety and depression Pt takes celexa and xanax Pt denies any suicial or homcidial thought. Pt denies any cyring spells GERD1 Pt has chronic G ERD Pt doing well with omeprazole. Pt denies any abd pain or any appetite loss or GERD symptoms HTN Pt takes losarta n.hCTz norvasc and toprol and her BP is stable. Pt denies any chest pain or headahe anxiety1 Pt has chronic a nxiety and depression. Pt takes celexa and xanax. Pt doing ok. Pt denies any suicidal thought. Pt denies any crying spells GERD1 Pt has gastritis . Pt takes omeprzole. Pt states that she canot tolerate gastritis symptoms without omepraozle. pt has not done bone density yet. Pt doing ok with omeprazole edema Doing better wit h lasix and KCL. Pt only takes lasix once per day. Pt is on low salt diet Pt denies any swelling sleep apnea1 Pt uses cpap nig htly and doing great, Pt feels more energy and she does not have any snoring HTN1 Pt supposes to t karely norvasc, toprol and losartan. Pt states that she lost some pill bottle so she is only taking one now and she does not know which one it is. Pt denies any headache. Pt states that she has been taking only one BP med and she has no idea which one. Pt denies any chest pain hyperglycemia Pt has elevated glucose. Pt denies any polyuria polydipsia HLP1 Pt has HLP. Pt i s not on any diet. Pt drinks about 10 beer and several shot about twice per week macrocytosis1 Pt has microcyto sis. Pt is not anemic Physical Pt needs annual physical. pt has chronic GERD and she takes omeprazole for several years. Pt denies any chest pain. pt takes HTN and she takes losartan/HCTZ, norvasc and toprol. Her BP is slightly high. Pt deneis any chest pain or headache. Pt has sleep apnea and she uses CPAP which is doing well. Pt has chronic anxeity and depression. pt takes celexa and xanax and doing ok. Pt denies any suicidal or homicidal thought. Pt denies crying spells. HTN Pt has HTN. Pt t akes losatan/HCTZ, toprol and also norvasc and her BP is around 130/80 at home. Pt denies any chest pain, heaache sleep apnea Relevant history : a BMI of 34.16. The patient is also experiencing heartburn. The patient denies depression or wheezing. Additional information: Pt has been using CPAP machine at night. Pt feels more energy and rest much better. Pt tolearting machine well. Pt uses CPAP throughout the night and everynight. Anxiety The patient pres ents with anxious/fearful thoughts but denies fatigue. The patient denies any nausea, urinary frequency, vomiting and weight gain. Additional information: Pt has chronic anxiety and depression. Pt takes celexa and xanax and doing ok. Pt denies any suicidasl thought. Her symptoms are well controlled. GERD Associated sympt oms include heartburn. Pertinent negatives include back pain, constipation, diarrhea, dyspnea, fever, hematuria, nausea, rash, vaginal discharge, vomiting, weight gain and weight loss.Additional information:Pt takes omeprazole once per day. Pt has mild gastritis. Pt denies any abd pain or any gERd or any nausea. Instructions Date Instruction Additional Infor gene Special diet education Related t o Body mass index (BMI) 34.0-34.9, adult Increase physical activity Relat ed to Encounter for general adult medical exam w abnormal findings Weight management Related to Enc ounter for general adult medical exam w abnormal findings Weight management Related to Gen eralized anxiety disorder Special diet education Related t o Body mass index (BMI) 35.0-35.9, adult Increase physical activity Relat ed to Generalized anxiety disorder Special diet education Related t o Body mass index (BMI) 34.0-34.9, adult Increase physical activity Relat ed to Edema Weight management Related to Jaswinder ma Special diet education Related t o Body mass index (BMI) 35.0-35.9, adult Increase physical activity Relat ed to Edema Weight management Related to Jaswinder ma Follow a low sodium diet. Relate d to Hyperlipidemia Prescribed dietary intake Relate d to Body mass index (BMI) 34.0-34.9, adult Increase activity. Related to Hy perlipidemia Prescribed Activity and Exercise Education Related to Dietary Surveillance and Counseling Prescribed Diet Educ ation/Lifestyle Education Regarding Diet Related to Dietary Surveillance and Counseling Weight management Related to Gen eralized Anxiety Disorder Prescribed Activity and Exercise Education Related to Dietary Surveillance and Counseling Prescribed Diet Educ ation/Lifestyle Education Regarding Diet Related to Dietary Surveillance and Counseling Increase activity. Related to Es sential (primary) hypertension Follow a low sodium diet. Relate d to Essential (primary) hypertension Prescribed Activity and Exercise Education Related to Dietary Surveillance and Counseling Prescribed Diet Educ ation/Lifestyle Education Regarding Diet Related to Dietary Surveillance and Counseling Increase physical activity Relat ed to Generalized Anxiety Disorder Weight management Related to Gen eralized Anxiety Disorder Follow a low sodium diet. Relate d to Essential (primary) hypertension Increase activity. Related to Es sential (primary) hypertension Prescribed Diet Educ ation/Lifestyle Education Regarding Diet Related to Dietary Surveillance and Counseling Prescribed Activity and Exercise Education Related to Dietary Surveillance and Counseling Follow a low sodium diet. Relate d to Essential (primary) hypertension Increase activity. Related to Es sential (primary) hypertension Prescribed Activity and Exercise Education Related to Dietary Surveillance and Counseling Prescribed Diet Educ ation/Lifestyle Education Regarding Diet Related to Dietary Surveillance and Counseling Prescribed Activity and Exercise Education Related to Dietary Surveillance and Counseling Prescribed Diet Educ ation/Lifestyle Education Regarding Diet Related to Dietary Surveillance and Counseling Prescribed Activity and Exercise Education Related to Dietary Surveillance and Counseling Prescribed Diet Educ ation/Lifestyle Education Regarding Diet Related to Dietary Surveillance and Counseling Prescribed Activity and Exercise Education Related to Dietary Surveillance and Counseling Prescribed Diet Educ ation/Lifestyle Education Regarding Diet Related to Dietary Surveillance and Counseling Prescribed Activity and Exercise Education Related to Dietary Surveillance and Counseling Prescribed Diet Educ ation/Lifestyle Education Regarding Diet Related to Dietary Surveillance and Counseling Prescribed Diet Educ ation/Lifestyle Education Regarding Diet Related to Dietary Surveillance and Counseling Prescribed Activity and Exercise Education Related to Dietary Surveillance and Counseling Prescribed Diet Educ ation/Lifestyle Education Regarding Diet Related to Dietary Surveillance and Counseling Prescribed Activity and Exercise Education Related to Dietary Surveillance and Counseling Prescribed Diet Educ ation/Lifestyle Education Regarding Diet Related to Dietary Surveillance and Counseling Prescribed Activity and Exercise Education Related to Dietary Surveillance and Counseling Prescribed Activity and Exercise Education Related to Dietary Surveillance and Counseling Prescribed Diet Educ ation/Lifestyle Education Regarding Diet Related to Dietary Surveillance and Counseling Decrease caloric intake Related to Dietary surveillance counseling Physical activity counseling Rel ated to Dietary surveillance counseling Physical activity counseling Rel ated to Dietary surveillance counseling Decrease caloric intake Related to Dietary surveillance counseling Dietary counseling Related to Di etary surveillance counseling Decrease caloric intake Related to Dietary surveillance counseling Dietary counseling Related to Di etary surveillance counseling Decrease caloric intake Related to Dietary surveillance counseling Decrease caloric intake Related to Dietary surveillance counseling Dietary counseling Related to Di etary surveillance counseling Assessments Type Assessment Date No Information
== END 2024-08-20 08:25 | disposition home or self-care (01) ==
LOC: ANHED 08:18
PROVIDERS: Emergency Provider Family Medicine
DX: M25.562 Pain in left knee (principal); I10 Essential (primary) hypertension; E66.9 Obesity, unspecified; Z68.34 Body mass index [BMI] 34.0-34.9, adult; E78.5 Hyperlipidemia, unspecified; K21.9 Gastro-esophageal reflux disease without esophagitis; G47.30 Sleep apnea, unspecified; M17.0 Bilateral primary osteoarthritis of knee; F41.8 Other specified anxiety disorders; Z87.891 Personal history of nicotine dependence; Z90.49 Acquired absence of other specified parts of digestive tract; Z79.899 Other long term (current) drug therapy
CPT/HCPCS: 99283

== ENCOUNTER 2024-09-03 06:46 | Day surgery (SDC) | payer OTHER, SELFPAY ==
[2024-08-13 12:53] VITALS: BMI 33.3
[2024-09-03 07:01] VITALS: BP 125/93; PULSE 88; RESP 15; TEMP 36.9; O2SAT 100
--- NOTE | 2024-09-03 08:04 | PM.IMHP ---
H&P: HPI History of Present Illness Date/Time: 09/03/24 08:04 Chief Complaint: screening colonoscopy Narrative: This is the patient's 2nd colonoscopy after 10 years. There are no GI symptoms and there is no family history of colorectal cancer. Review of Systems Review of Systems: All systems reviewed & are unremarkable except as noted in HPI and below PMFSH Past Medical History Medical History Right knee DJD Colon cancer screening Odynophagia Dysphagia Lateral meniscus tear Chondromalacia of knee Medial meniscus tear Left knee DJD Left knee pain Chronic cholecystitis Obesity HLD (hyperlipidemia) Depression with anxiety GERD (gastroesophageal reflux disease) Sleep apnea HTN (hypertension) Surgical History Surgical History Hx laparoscopic cholecystectomy History of conization of cervix Family History Family History Father Hypertension Mother CHF (congestive heart failure) Social History Social History Years smoked: 30 Smoking status: Former smoker Tobacco type: cigarettes and e-cigarettes/vaping Smoking end date: 08/22/17 Additional smoking assessment comments: currently vapes Alcohol intake: former Drinks per week: 10 Alcohol use details: 5 drinks monthly Substance use: never Substance use type: does not use Living arrangements: with family Occupation/Education: occupation 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 Gender identity (if verbalized by the patient): Female Spiritual care concerns: No Meds Home Medications and Allergies Home Medications ?Medication ?Instructions ?Recorded ?Confirmed ?Type amlodipine 10 mg tablet 10 mg PO DAILY 02/27/20 09/03/24 History bupropion HCl 150 mg 24 hr tablet, 150 mg PO DAILY 02/27/20 09/03/24 History extended release buspirone 15 mg tablet 15 mg PO BID 02/27/20 09/03/24 History citalopram 40 mg tablet 40 mg PO DAILY 02/27/20 09/03/24 History furosemide 20 mg tablet 20 mg PO DAILY 02/27/20 09/03/24 History losartan 100 mg tablet 100 mg PO DAILY 02/27/20 09/03/24 History metoprolol succinate 50 mg 50 mg PO DAILY 02/27/20 09/03/24 History tablet,extended release 24 hr spironolactone 50 mg tablet 50 mg PO DAILY 02/27/20 09/03/24 History trazodone 100 mg tablet 100 mg PO HS 02/27/20 08/13/24 History hydroxyzine HCl 25 mg tablet 25 mg PO DAILY 04/17/21 09/03/24 History clonazepam 0.5 mg tablet 0.5 mg PO DAILY PRN Anxiety 12/10/21 09/03/24 History omeprazole 40 mg capsule,delayed See Rx Instructions .Route 03/06/24 09/03/24 Rx release .COMPLEX #60 caps Allergies Allergy/AdvReac Type Severity Reaction Status Date / Time No Known Allergies Allergy Unknown Verified 09/03/24 07:00 Vital Signs Vital Signs - 24 hr 09/03/24 07:01 Temperature 98.4 F Pulse Rate 88 Respiratory Rate 15 Blood Pressure 125/93 H Pulse Oximetry 100 Oxygen Delivery Room Air Exam Const: General: cooperative and healthy appearing Resp: Effort & Inspection: normal respiratory effort and able to speak in complete sentences Auscultation: clear to auscultation bilaterally Cardio: Rate: regular rate Rhythm: regular rhythm GI: Inspection: normal to inspection GI Palp: No No hepatosplenomegaly present Auscultation: normal bowel sounds Rectal Exam: deferred Skin: General skin exam: normal color Psych: Appearance: grossly normal Mental Status: mental status grossly normal Assessment and Plan Assessment and plan (1) Colon cancer screening: Code(s): Z12.11 - Encounter for screening for malignant neoplasm of colon Status: Acute Assessment and Plan: The patient is deemed a good candidate for the procedure. Consent signed. Will proceed.
--- NOTE | 2024-09-03 08:08 | WPDANESEPPF ---
Anes - Initial Pre Proc Eval Procedure: Operation Date: 09/03/24 09:15 Proposed Procedures p Screening Colonoscopy - Obed Tinsley MD Date/Time: 09/03/24 08:08 Surgeon: Obed Tinsley MD Pre Op Diagnosis: Neoplasm Screening Patient Data Age: 59 Gender: F Height: 1.63 m Weight: 94.05 kg Last Vital Signs Temp 36.9 C 09/03/24 07:01 Pulse 88 09/03/24 07:01 Resp 15 09/03/24 07:01 BP 125/93 H 09/03/24 07:01 Pulse Ox 100 09/03/24 07:01 O2 Del Method Room Air 09/03/24 07:01 Allergies Allergy/AdvReac Type Severity Reaction Status Date / Time No Known Allergies Allergy Unknown Verified 09/03/24 07:00 Home Medications ?Medication ?Instructions ?Recorded ?Confirmed ?Type amlodipine 10 mg tablet 10 mg PO DAILY 02/27/20 09/03/24 History bupropion HCl 150 mg 24 hr tablet, 150 mg PO DAILY 02/27/20 09/03/24 History extended release buspirone 15 mg tablet 15 mg PO BID 02/27/20 09/03/24 History citalopram 40 mg tablet 40 mg PO DAILY 02/27/20 09/03/24 History furosemide 20 mg tablet 20 mg PO DAILY 02/27/20 09/03/24 History losartan 100 mg tablet 100 mg PO DAILY 02/27/20 09/03/24 History metoprolol succinate 50 mg 50 mg PO DAILY 02/27/20 09/03/24 History tablet,extended release 24 hr spironolactone 50 mg tablet 50 mg PO DAILY 02/27/20 09/03/24 History trazodone 100 mg tablet 100 mg PO HS 02/27/20 08/13/24 History hydroxyzine HCl 25 mg tablet 25 mg PO DAILY 04/17/21 09/03/24 History clonazepam 0.5 mg tablet 0.5 mg PO DAILY PRN Anxiety 12/10/21 09/03/24 History omeprazole 40 mg capsule,delayed See Rx Instructions .Route 03/06/24 09/03/24 Rx release .COMPLEX #60 caps Patient hx anesthesia problems: none Family hx anesthesia problems: none Results Review: All pre-operative results and documents have been reviewed as part of the pre-operative evaluation. PMFSH Past Medical History Medical History Right knee DJD Colon cancer screening Odynophagia Dysphagia Lateral meniscus tear Chondromalacia of knee Medial meniscus tear Left knee DJD Left knee pain Chronic cholecystitis Obesity HLD (hyperlipidemia) Depression with anxiety GERD (gastroesophageal reflux disease) Sleep apnea HTN (hypertension) Surgical History Surgical History Hx laparoscopic cholecystectomy History of conization of cervix Family History Family History Father Hypertension Mother CHF (congestive heart failure) Social History Social History Years smoked: 30 Smoking status: Former smoker Tobacco type: cigarettes and e-cigarettes/vaping Smoking end date: 08/22/17 Additional smoking assessment comments: currently vapes Alcohol intake: former Drinks per week: 10 Alcohol use details: 5 drinks monthly Substance use: never Substance use type: does not use Living arrangements: with family Occupation/Education: occupation 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 Informed Consent: The patient's anesthetic plan and its attendant risks and benefits were discussed with the patient/family/POA. Questions were solicited and answers provided to the satisfaction of the patient/family/POA.
[2024-09-03] MEDS: LACTATED RINGERS 1,000 ML 150 ML IV CONT (08:56)
[2024-09-03 08:57] VITALS: BP 117/70; PULSE 75; RESP 16; O2SAT 99
[2024-09-03 09:07] VITALS: BP 114/69; PULSE 66; RESP 16; O2SAT 97
[2024-09-03 09:17] VITALS: BP 116/64; PULSE 62; RESP 20; O2SAT 99
--- NOTE | 2024-09-03 09:25 | WPDANESPN ---
Anes - Prog Note Post-Op Date/Time: 09/03/24 09:25 Cardiovascular status: normal Respiratory status: normal Airway patency: baseline Mental status: baseline Post-Op hydration status: normal Vital Signs: Last Vital Signs Temp 36.9 C 09/03/24 07:01 Pulse 62 09/03/24 09:17 Resp 20 09/03/24 09:17 BP 116/64 09/03/24 09:17 Pulse Ox 99 09/03/24 09:17 O2 Del Method Room Air 09/03/24 09:17 Pain Score (VAS): 0/10 I/O: Intake & Output 09/02/24 09/03/24 09/03/24 23:59 07:59 15:59 Intake Total 300 Balance 300 Patient Feedback: Patient satisfied with anesthetic care.
== END 2024-09-03 09:23 ==
PROVIDERS: Referring Provider Physician Assistant; Visit Provider Internal Medicine Gastroenterology
PROC: 0DJD8ZZ Inspection of Lower Intestinal Tract, Via Natural or Artificial Opening Endoscopic (ICD-10-PCS; CPT 45378; principal; 2024-09-03 09:15)
DX: Z12.11 Encounter for screening for malignant neoplasm of colon (principal)
CPT/HCPCS: 45378

== ENCOUNTER 2024-09-19 13:41 | Outpatient (CLI) | payer OTHER, SELFPAY ==
--- NOTE | ~2024-09-19 | MR_ITS ---
EXAMINATION: MR knee LT wo con DATE: 09/19/2024 14:08 INDICATION: Unspecified injury of the left lower leg post fall one month prior TECHNIQUE: Magnetic resonance imaging (MRI) of the left knee was performed without intravenous contra st. Sequences included coronal PD-weighted FSE, coronal PD-weighted FS FSE, sagittal T2-weighted FSE , sagittal PD-weighted FS FSE and axial PD weighted fat saturated FSE. COMPARISON: None. FINDINGS: Medial compartment: Complex tear at the posterior horn of the medial meniscus which includes both a radial tear plane inv olving the anterior two thirds of the lateral side of the posterior horn and a longitudinal vertical tear plane extending to the intra-articular surface and the peripheral third of the more medial poste rior horn extending into the body of the meniscus. There is mild partial-thickness cartilage loss wit h smooth chondral surface along the medial tibial plateau and anterior weightbearing medial femoral c ondyle. There is small region of deep or chondral ulceration at the lateral side of the junction of t he anterior and central weightbearing medial femoral condyle. Lateral compartment: There is a longitudinal horizontal tear plane extending to the superior articular surface of the body of the lateral meniscus. There is mild partial-thickness cartilage loss with smooth chondral surface along the posterior weightbearing lateral femoral condyle. Patellofemoral compartment: Deep chondral ulceration with underlying edema-like signal change at the cephalad aspect of the media l facet. There is less severe partial thickness chondral ulceration and deep fissuring with additiona l minimal subarticular edema-like signal change and more caudal aspect of the medial patellar facet a nd adjacent apical ridge. Deep chondral ulceration at the inferior aspect of the trochlear groove and inferolateral aspect of the medial trochlea where there is mild underlying cortical irregularity. Ligaments and tendons: Anterior and posterior cruciate ligaments are normal. The medial collateral ligament and fibular jaun ateral ligament complex are normal. The extensor mechanism is normal. The visualized medial and later al hamstring tendons as well as the iliotibial band are normal. Fluid: Physiologic amount of fluid in the joint space. No loose osteochondral bodies identified. 4.1 x 2.3 x 1.3 cm Christiansen's cyst. Osseous/other: There is linear increased fluid signal with decreased signal on the nonfat saturated images extending and sagittal oriented direction and lung the medial side of the lateral patellar facet along the glendy ulder the intercondylar eminence consistent with a likely healing nondisplaced fracture which is occu lt on the prior radiographs. No pathologic marrow replacing process. IMPRESSION: 1. Likely healing nondisplaced fracture extending anteroposteriorly along the medial side of the late ral tibial plateau. 2. Tears of the medial and lateral menisci. 3. 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 4. Moderate-sized Christiansen's cyst. Reviewed, dictated and finalized at location B. SSES PREPARER IMPRESSION: 1. Likely healing nondisplaced fracture extending anteroposteriorly along the m edial side of the lateral tibial plateau. 2. Tears of the medial and lateral menisci. 3. Mild tricompartmental osteoarthritis with patellofemoral compartment predomi nance where there is high-grade chondromalacia. 4. Moderate-sized Christiansen's cyst.
--- OUTSIDE RECORDS SUMMARY | 2024-09-19 14:30 | XMS_ITS | Continuity of Care Document ---
Author Organization [facility] Address [address] [place] [address] [place] [address] Phone Care Team Providers Care Rn Field Case Manager Name Role Phone Evangelista Cotton MD Unavailable [...] route every day 100 MG - Active Lipitor 40 mg tablet take 1 tablet by oral route every day 40 MG - Active Wellbutrin XL 150 mg 24 hr tablet, extended release take 1 tablet by oral route every morning 150 MG - Active Lasix 20 mg tablet take 1 tablet by oral route 2 times every day 20 MG - Active omeprazole 20 mg tablet,delayed release take 1 tablet by oral route every day 1 tablet - Active Toprol XL 50 mg tablet,extended release take 1 tablet (50MG) by oral route every day - Active Celexa 40 mg tablet take 1 tablet (40MG) by oral route every day - Active EpiPen 2-Marino 0.3 mg/0.3 mL [...] Diagnoses Date Provider Providers Copied on Encounter [facility], [address] [place], [address], tel:[phone] [facility] No Information Zoey Naidu. [address] [place], [address] , [place]. tel:[phone] Referring Provider: Toy Soler [facility] [place], [address]. tel:[phone] PREV VISIT, EST, AGE 40-63 [facility], [address], [place], [place], [address], [place] tel:[phone] [facility] PHysical (chief complaint) Encounter for general adult medical exam w abnormal findingsPain in left fingerEssential (primary) hypertensionGeneral ized anxiety disorderHyperlipide miaAlcohol dependence Fe 9 Yury Naidu. [address], [place], [place], [address] , [place]. [phone] Referring Provider: Toy Soler [address], [place], [place], [address]. tel:[phone] OFFICE/OUTPA TIENT VISIT, [facility], [address], [place], [place], [address], [place] tel:[phone] [facility] HTN (chief complaint) anxiety (chief complaint) anxiety1 (chief complaint) breast1 (chief complaint) Encounter for oth screening for malignant neoplasm of breastGeneralized anxiety disorderEssential (primary) hypertensionEdema 8 Yury Naidu. [address], [place], [place], [address] , [place]. [phone] Referring Provider: Toy Soler [address], [place], [place], [address]. tel:[phone] OFFICE/OUTPA TIENT VISIT, [facility], [address], [place], [place], [address], [place] tel:[phone] [facility] HTN (chief complaint) anxiety1 (chief complaint) back pain1 (chief complaint) sleep apnea1 (chief complaint) EdemaEssential (primary) hypertensionGeneral ized anxiety disorderEncounter for screening for malignant neoplasm of colonTobacco useSleep apnea 8 Yury Taylor [address], [place], [place], [address] , [place]. [phone] Referring Provider: Toy Soler [address], [place], [place], [address]. tel:[phone] OFFICE/OUTPA TIENT VISIT, [facility], [address], [place], [place], [address], [place] tel:[phone] [facility] HTN (chief complaint) edema1 (chief complaint) anxiety1 (chief complaint) back pain1 (chief complaint) EdemaEssential (primary) hypertensionLumbago with sciatica, right sideGeneralized anxiety disorder 8 Yury Naidu. [address], [place], [place], [address] , [place]. tel:[phone] Referring Provider: Toy Soler [facility] A, [place], [place], [address]. tel:[phone] OFFICE/OUTPA TIENT VISIT, [facility], [address], [place], [place], [address], [place] tel:[phone] [facility] HLP (chief complaint) vitamin1 (chief complaint) anxiety1 (chief complaint) HTN (chief complaint) Body mass index (BMI) 34.0-34.9, adultHyperlipidemia Essential (primary) hypertensionEdemaGe neralized anxiety disorder 8 Yury Naidu. [address], [place], [place], [address] , [place]. tel:[phone] Referring Provider: Toy Soler [address], [place], [place], [address]. tel:[phone] OFFICE/OUTPA TIENT VISIT, [facility], [address], [place], [place], [address], [place] tel:[phone] [facility] GERD1 (chief complaint) anxity1 (chief complaint) bee sting (chief complaint) Generalized Anxiety DisorderBee allergy statusGERD without esophagitisHyperlip idemia 8 Yury Naidu. [address], [place], [place], [address] , [place]. tel:[phone] Referring Provider: oTy Soler [address], [place], [place], [address]. tel:[phone] PREV VISIT, EST, AGE 40-63 [facility], [address], [place], [place], [address], [place] tel:[phone] [facility] Physical (chief complaint) Essential (primary) hypertensionGeneral ized Anxiety DisorderEncounter for general adult medical exam w abnormal findingsEdema 7 Yury Naidu. [address], [place], [place], [address] , [place]. [phone] Referring Provider: Toy Soler [address], [place], [place], [address]. tel:[phone] OFFICE/OUTPA TIENT VISIT, [facility], [address], [place], [place], [address], [place] tel:[phone] [facility] sinus (chief complaint) anxity1 (chief complaint) HTN (chief complaint) Generalized Anxiety DisorderAcute upper respiratory infection, unspecifiedEssentia l (primary) hypertensionBody mass index (BMI) 34.0-34.9, adult 7 Yury Naidu. [address], [place], [place], [address] , [place]. [phone] OFFICE/OUTPA TIENT VISIT, [facility], [address], [place], [place], [address], [place] tel:[phone] [facility] HTN (chief complaint) anxiety1 (chief complaint) GERD1 (chief complaint) Essential (primary) hypertensionGERD without esophagitisGenerali zed Anxiety DisorderBee allergy status 7 Yury Naidu. [address], [place], [place], [address] , [place]. [phone] Referring Provider: Toy Soler [address], [place], [place], [address]. tel:[phone] OFFICE/OUTPA TIENT VISIT, [facility], [address], [place], [place], [address], [place] tel:[phone] [facility] HLP (chief complaint) anxity1 (chief complaint) edema1 (chief complaint) HTN (chief complaint) GERD1 (chief complaint) Essential (primary) hypertensionHyperli pidemiaGeneralized Anxiety DisorderGERD without esophagitis 0 7 Yruy Naidu. [address], [place], [place], [address] , [place]. tel:[phone] Referring Provider: Toy Soler [address], [place], [place], [address]. tel:[phone] OFFICE/OUTPA TIENT VISIT, [facility], [address], [place], [place], [address], [place] tel:[phone] [facility] anxiety1 (chief complaint) glucose (chief complaint) GERD1 (chief complaint) HLP (chief complaint) HyperlipidemiaHyper glycemiaHypokalemia GERD without esophagitis 7 Yury Naidu. [address], [place], [place], [address] , [place]. tel:[phone] Referring Provider: Evangelista Cotton [address], [place], [place], [address]. tel:[phone] OFFICE/OUTPA TIENT VISIT, [facility], [address], [place], [place], [address], [place] tel:[phone] [facility] calf nodule1 (chief complaint) Lipoma 7 Yury Taylor [address], [place], [place], [address] , [place]. tel:[phone] Referring Provider: Evangelista Cotton [address], [place], [place], [address]. tel:[phone] OFFICE/OUTPA TIENT VISIT, [facility], [address], [place], [place], [address], [place] tel:[phone] [facility] HLP (chief complaint) low K (chief complaint) glucose1 (chief complaint) HyperlipidemiaHypok alemiaHyperglycemia Body mass index (BMI) 33.0-33.9, adult 6 Yury Naidu. [address], [place], [place], [address] , [place]. [phone] Referring Provider: Toy Soler [address], [place], [place], [address]. tel:[phone] PREV VISIT, EST, AGE [age] [facility], [address], [place], [place], [address], [place] tel:[phone] [facility] PHysical (chief complaint) Encounter for general adult medical exam w abnormal findingsGERD without esophagitisEssentia l (primary) hypertensionGeneral ized Anxiety Disorder 6 Yury Naidu. [address], [place], [place], [address] , [place]. [phone] Referring Provider: Toy Soler [address], [place], [place], [address]. tel:[phone] OFFICE/OUTPA TIENT VISIT, [facility], [address], [place], [place], [address], [place] tel:[phone] [facility] HTN (chief complaint) GERD1 (chief complaint) anxiety1 (chief complaint) breast (chief complaint) Essential (primary) hypertensionGERD without esophagitisGenerali zed Anxiety DisorderEdema 6 Yury Naidu. [address], [place], [place], [address] , [place]. [phone] Referring Provider: Toy Soler [address], [place], [place], [address]. tel:[phone] OFFICE/OUTPA TIENT VISIT, EST [facility], [address], [place], [address], [place] tel:[phone] [facility] HTN (chief complaint) anxiety1 (chief complaint) GERD1 (chief complaint) Gastro-esophageal reflux disease without esophagitisGenerali zed anxiety disorderEssential (primary) hypertensionEdema 6 Yury Naidu. [address], [place], [place], [address] , [place]. [phone] Referring Provider: Toy Soler [address], [place], [place], [address]. tel:[phone] OFFICE/OUTPA TIENT VISIT, EST [facility], [address], [place], [place], [address], [place] tel:[phone] [facility] HTN (chief complaint) anxiety1 (chief complaint) GERD1 (chief complaint) edema (chief complaint) sleep apnea1 (chief complaint) Essential (primary) hypertensionGeneral ized anxiety disorderSleep apneaGERD without esophagitis Fe 0 6 Yury Naidu. [address], [place], [place], [address] , [place]. [phone] Referring Provider: Toy Soler [facility] A, [place], [place], [address]. tel:[phone] OFFICE/OUTPA TIENT VISIT, EST [facility], [address], [place], [place], [address], [place] tel:[phone] [facility] HTN1 (chief complaint) hyperglyce toni (chief complaint) HLP1 (chief complaint) macrocytos is1 (chief complaint) Essential (primary) hypertensionHypergl ycemiaOther specified disease of bloodMixed hyperlipidemia 5 Yury Naidu. [address], [place], [place], [address] , [place]. [phone] Referring Provider: Toy Soler [address], [place], [place], [address]. tel:[phone] PREV VISIT, EST, AGE 40-63 [facility], [address], [place], [place], [address], [place] tel:[phone] [facility] Physical (chief complaint) Encntr for general adult medical exam w/o abnormal findings 5 Yury Naidu. [address], [place], [place], [address] , [place]. [phone] Referring Provider: Toy Soler [address], [place], [place], [address]. tel:[phone] OFFICE/OUTPA TIENT VISIT, [facility], [address], [place], [place], [address], [place] tel:[phone] [facility] HTN (chief complaint) sleep apnea (chief complaint) Anxiety (chief complaint) GERD (chief complaint) Dietary surveillance and counselingEdemaUnsp ecified essential hypertensionUnspeci fied sleep apneaEsophageal reflux 5 Yury Naidu. [address], [place], [place], [address] , [place]. tel:[phone] Referring Provider: Toy Soler [address], [place], [place], [address]. tel:[phone] OFFICE/OUTPA TIENT VISIT, [facility], [address], [place], [place], [address], [place] tel:[phone] [facility] Anxiety (chief complaint) sleep apnea (chief complaint) GERD (chief complaint) edema (chief complaint) Dietary surveillance and counselingGERDSleep ApneaGeneralized anxiety disorderEdema 5 Yury Naidu. [address], [place], [place], [address] , [place]. tel:[phone] Referring Provider: Toy Soler [address], [place], [place], [address]. tel:[phone] OFFICE/OUTPA TIENT VISIT, [facility], [address], [place], [place], [address], [place] tel:[phone] [facility] sleep apnea (chief complaint) anxiety (chief complaint) HTN (chief complaint) Dietary surveillance and counselingSleep ApneaHypertension, UnspecifiedGenerali zed anxiety disorderBody Mass Index 34.0-34.9, adult Oct- 5 Yury [address], [place], [place], [address] , [place]. tel:[phone] Referring Provider: Toy Soler [address], [place], [place], [address]. tel:[phone] OFFICE/OUTPA TIENT VISIT, [facility], [address], [place], [place], [address], [place] tel:[phone] [facility] rash (chief complaint) Pulmonary HTN (chief complaint) Contact dermatitis and other eczema due to other specified agentsPulmonary Hypertension, PrimaryMurmurSleep Apnea 5 Yury Naidu. [address], [place], [place], [address] , [place]. [phone] Referring Provider: Toy Soler [address], [place], [place], [address]. tel:[phone] OFFICE/OUTPA TIENT VISIT, [facility], [address], [place], [place], [address], [place] tel:[phone] [facility] HTN (chief complaint) GERD (chief complaint) anxiety (chief complaint) GERDHypertension, UnspecifiedGenerali zed anxiety disorderMuur 4 Yury Naidu. [address], [place], [place], [address] , [place]. [phone] Referring Provider: Toy Soler [address], [place], [place], [address]. tel:[phone] OFFICE/OUTPA TIENT VISIT, [facility], [address], [place], [place], [address], [place] tel:[phone] [facility] HTN (chief complaint) GERD (chief complaint) anxiety (chief complaint) Dietary surveillance and counselingGERDHyper tension, UnspecifiedGenerali zed anxiety disorder 4 Yury Naidu. [address], [place], [place], [address] , [place]. tel:[phone] Referring Provider: Toy Soler [address], [place], [place], [address]. tel:[phone] OFFICE/OUTPA TIENT VISIT, [facility], [address], [place], [place], [address], [place] tel:[phone] [facility] TG (chief complaint) HTN (chief complaint) GERD (chief complaint) sick (chief complaint) Dietary surveillance and counselingHypertens ion, UnspecifiedOther and unspecified hyperlipidemiaGERD 4 Yury Naidu. [address] [facility] [place], [address] , . tel:[phone] Referring Provider: Evangelista Cotton, [address] [facility] [address], [place], [place], [address]. tel:[phone] PREV VISIT, NEW, AGE 40-64 [facility], [address], [address], tel:[phone] [facility] Physical (chief complaint) Routine Medical ExamDietary surveillance and counselingRoutine Medical Exam 4 Yury Naidu. [address] [facility] [place], [address] , [place]. tel:[phone] Family History Family Member Type Diagnosis Age At Onset Mother Problem (finding) CHF Father Problem (finding) Hypertension Brother Problem (finding) Alive and well Payers Payer name Insurance type Covered libertarian ID Authoriza tion(s) No Information Social History [...] XRAY ordered Referral Referred To: Maulik Obrien [facility] [address] [place] [address]
[address] [place] [phone] Ordered: Referrals: Allopathic & Osteopathic Physicians : Surgery. Maulik Obrien. Evaluate and treat ordered Referral Ordered: Physical Therapy (related to Lumbago with sciatica, right side) ordered Referral Ordered: LUMBAR XRAY AP AND LAT ONLY ordered Referral Referred To: Physical Therapy Ordered: Referrals: Physical Therapy ordered Referral Ordered: Maulik Obrien (related to Edema) ordered Referral Referred To: Maulik Obrien [place] [address] [place] [address]
[address] [place], [id number] Ordered: Referrals: Maulik Obrien. Evaluate and treat [...] since the fall about one week before [place]. Pt never sought medical attention. Pt notices [...] is off KCL anxiety anxiety1 Patient has photography manager wanda anxiety and depression. Patient denies any [...] any nausea. Instructions Date Instruction Additional Infor mation Special diet education Related t o Body mass index (BMI) 34.0-34.9, adult Increase physical activity Relat ed to Encounter for general adult medical exam w abnormal findings Weight management Related to Enc ounter for general adult medical exam w abnormal findings Special diet education Related t o Body mass index (BMI) 35.0-35.9, adult Increase physical activity Relat ed to Generalized anxiety disorder Weight management Related to Gen eralized anxiety disorder Weight management Related to Jaswinder ma Special diet education Related t o Body mass index (BMI) 34.0-34.9, adult Increase physical activity Relat ed to Edema Special diet education Related t o Body mass index (BMI) 35.0-35.9, adult Increase physical activity Relat ed to Edema Weight management Related to Jaswinder ma Prescribed dietary intake Relate d to Body mass index (BMI) 34.0-34.9, adult Increase activity. Related to Hy perlipidemia Follow a low sodium diet. Relate d to Hyperlipidemia Prescribed Activity and Exercise Education Related to Dietary Surveillance and Counseling Prescribed Diet Educ ation/Lifestyle Education Regarding Diet Related to Dietary Surveillance and Counseling Weight management Related to Gen eralized Anxiety Disorder Prescribed Diet Educ ation/Lifestyle Education Regarding Diet [...] caloric intake Related to Dietary surveillance counseling Assessments Type Assessment Date No Information
--- OUTSIDE RECORDS SUMMARY | 2024-09-19 14:30 | XMS_ITS | Clinical Summary ---
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 Gender Identity Not on file Sexual Orientation Not on file Plan of Treatment Health Maintenance Due Date Last Done Comments Hepatitis C Virus (HCV) Screening 1965 TdaP Immunization 1964 Pap Smear 1985 Cervical Cancer Screening (CCS) 1994 HPV/Cotest 1994 Colonoscopy 2009 Colorectal Cancer Screening 2009 Cologuard 2014 Immunochemical Fecal Occult Blood 2014 Mammogram 2014 Pneumococcal Immunization (5 0+ years) (1 of 1 - PCV) 2014 Zoster Immunization (1 of 2) 2014 Influenza Immunization (#1) 04/22/202408/2019, 05/06/2019 SARS-COV-2 Immunization ( season) 2024 Respiratory Syncytial Virus (RSV) Immunization (Adult) (1 - 1-dose 75+ series) 2039 Hepatitis B Immunization Aged Out No longer eligible based on patient's age to complete this topic Meningococcal Immunization (ACWY) Aged Out No longer eligible b ased on patient's age to complete this topic Pneumococcal Immunization Combined Aged Out No longer eligible b ased on patient's age to complete this topic Rotavirus Immunization Aged Out No lo nger eligible based on patient's age to complete this topic
== END 2024-09-19 13:42 | disposition home or self-care (01) ==
LOC: ANHIMG 13:42
PROVIDERS: PCP Physician Assistant; Visit Provider Orthopaedic Surgery
DX: S89.92XA Unspecified injury of left lower leg, initial encounter (principal); S83.242A Other tear of medial meniscus, current injury, left knee, initial encounter; X58.XXXA Exposure to other specified factors, initial encounter; M17.12 Unilateral primary osteoarthritis, left knee; M94.262 Chondromalacia, left knee; M71.22 Synovial cyst of popliteal space [Baker], left knee
CPT/HCPCS: 73721

== ENCOUNTER 2024-10-25 13:05 | Outpatient (CLI) | payer OTHER, SELFPAY ==
--- NOTE | 2024-10-25 13:11 | ECG_ITS ---
Test Date: 2024-10-25 13:20:22 Measurements Intervals [place] Rate: 72 P: 24 NM: 170 QRS: -1 QRSD: 88 T: 14 QT: 396 QTc: 436 Interpretive Statements SINUS RHYTHM MODERATE VOLTAGE CRITERIA FOR LVH, CONSIDER NORMAL VARIANT [MEETS CRITERIA IN ONE OF: R(aVL), S(V1), R(V5), R(V5/V6)+S(V1)] NONSPECIFIC T-WAVE ABNORMALITY No previous ECG available for comparison Electronically Signed On 10-25-2024 14:12:58 BIOMASS TECHNICIAN by Jerzy Ch M.D.
--- OUTSIDE RECORDS SUMMARY | 2024-10-25 14:23 | XMS_ITS | Clinical Summary ---
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
--- OUTSIDE RECORDS SUMMARY | 2024-10-25 14:23 | XMS_ITS | Continuity of Care Document ---
Author Organization [facility] Address [address] [place] [address] [place] [address] Phone Care Team Providers Care Manager Of Medical Name Role Phone Evangelista Cotton MD Unavailable Unavailable Allergies, Adverse Reactions, Alerts Substance Reaction Status Criticality venom-honey bee Active No Informati on Medications Medication Instructions Dosage Effective Dates (start - stop) Status Comments losartan 100 mg tablet take 1 tablet by oral route every day 100 MG - Active spironolactone 50 mg tablet take 1 tablet by oral route every day 50 MG - Active Xanax 0.5 mg tablet take 1 tablet by oral route 2 times every day as needed 0.5 MG - Active PRN for anxiety, 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 [address] [place], [address] , [place]. tel:[phone] Referring Provider: Toy Soelr [facility] [place], [address]. tel:[phone] PREV VISIT, EST, AGE 40-64 [facility], [address], [place], [place], [address], [place] tel:[phone] [facility] PHysical (chief complaint) Encounter for general adult medical exam w abnormal findingsPain in left fingerEssential (primary) hypertensionGeneral ized anxiety disorderHyperlipide miaAlcohol dependence Fe 9 Yury Naidu. [address], [place], [place], [address] , [place]. [phone] Referring Provider: Toy Soler [address], [place], [place], [address]. tel:[phone] OFFICE/OUTPA TIENT VISIT, [facility], [address], [place], [place], [address], [place] tel:[phone] [facility] HTN (chief complaint) anxiety (chief complaint) anxiety1 (chief complaint) breast1 (chief complaint) Encounter for oth screening for malignant neoplasm of breastGeneralized anxiety disorderEssential (primary) hypertensionEdema 8 Yury Naidu. [address], [place], [place], [address] , [place]. [phone] Referring Provider: Toy Soler [address], [place], [address]. tel:[phone] OFFICE/OUTPA TIENT VISIT, [facility], [address], [place], [place], [address], [place] tel:[phone] [facility] HTN (chief complaint) anxiety1 (chief complaint) back pain1 (chief complaint) sleep apnea1 (chief complaint) EdemaEssential (primary) hypertensionGeneral ized anxiety disorderEncounter for screening for malignant neoplasm of colonTobacco useSleep apnea 8 Yury Taylor [address], [place], [place], [address] , [place]. [phone] Referring Provider: Toy Soler [address], [place], [place], [address]. tel:[phone] OFFICE/OUTPA TIENT VISIT, [facility], [address], [place], [place], [address], [place] tel:[phone] [facility] HTN (chief complaint) edema1 (chief complaint) anxiety1 (chief complaint) back pain1 (chief complaint) EdemaEssential (primary) hypertensionLumbago with sciatica, right sideGeneralized anxiety disorder 8 Yury Naidu. [address], [place], [place], [address] , [place]. tel:[phone] Referring Provider: Toy Soler [facility], [place], [place], [address]. tel:[phone] OFFICE/OUTPA TIENT VISIT, [facility], [address], [place], [place], [address], [place] tel:[phone] [facility] HLP (chief complaint) vitamin1 (chief complaint) anxiety1 (chief complaint) HTN (chief complaint) Body mass index (BMI) 34.0-34.9, adultHyperlipidemia Essential (primary) hypertensionEdemaGe neralized anxiety disorder 8 Yury Naidu. [address], [place], [place], [address] , [place]. tel:[phone] Referring Provider: Toy Soler [address], [place], [address]. tel:[phone] OFFICE/OUTPA TIENT VISIT, [facility], [address], [place], [place], [address], [place] tel:[phone] [facility] GERD1 (chief complaint) anxity1 (chief complaint) bee sting (chief complaint) Generalized Anxiety DisorderBee allergy statusGERD without esophagitisHyperlip idemia 8 Yury Naidu. [address], [place], [place], [address] , [place]. tel:[phone] Referring Provider: Toy Soler [address], [place], [place], [address]. tel:[phone] PREV VISIT, EST, AGE 40-64 [facility], [address], [place], [address], [place] tel:[phone] [facility] Physical (chief complaint) Essential (primary) hypertensionGeneral ized Anxiety DisorderEncounter for general adult medical exam w abnormal findingsEdema 7 Yury Naidu. [address], [place], [place], [address] , [place]. [phone] Referring Provider: Toy Soler [address], [place], [address]. tel:[phone] OFFICE/OUTPA TIENT VISIT, [facility], [address], [place], [place], [address], [place] tel:[phone] [facility] sinus (chief complaint) anxity1 (chief complaint) HTN (chief complaint) Generalized Anxiety DisorderAcute upper respiratory infection, unspecifiedEssentia l (primary) hypertensionBody mass index (BMI) 34.0-34.9, adult 7 Yury Naidu. [address], [place], [place], [address] , [place]. [phone] OFFICE/OUTPA TIENT VISIT, [facility], [address], [place], [place], [address], [place] tel:[phone] [facility] HTN (chief complaint) anxiety1 (chief complaint) GERD1 (chief complaint) Essential (primary) hypertensionGERD without esophagitisGenerali zed Anxiety DisorderBee allergy status 7 Yury Naidu. [address], [place], [address] , [place]. [phone] Referring Provider: Toy Soler [address], [place], [place], [address]. tel:[phone] OFFICE/OUTPA TIENT VISIT, [facility], [address], [place], [place], [address], [place] tel:[phone] [facility] HLP (chief complaint) anxity1 (chief complaint) edema1 (chief complaint) HTN (chief complaint) GERD1 (chief complaint) Essential (primary) hypertensionHyperli pidemiaGeneralized Anxiety DisorderGERD without esophagitis 0 7 Yury Naidu. [address], [place], [place], [address] , [place]. tel:[phone] Referring Provider: Toy Soler [address], [place], [place], [address]. tel:[phone] OFFICE/OUTPA TIENT VISIT, [facility], [address], [place], [address], [place] tel:[phone] [facility] anxiety1 (chief complaint) glucose (chief complaint) GERD1 (chief complaint) HLP (chief complaint) HyperlipidemiaHyper glycemiaHypokalemia GERD without esophagitis 7 Yury Naidu. [address], [place], [place], [address] , [place]. tel:[phone] Referring Provider: Evangelista Cotton [address], [place], [place], [address]. tel:[phone] OFFICE/OUTPA TIENT VISIT, [facility], [address], [place], [address], [place] tel:[phone] [facility] calf nodule1 (chief complaint) Lipoma 7 Yury Taylor [address], [place], [place], [address] , [place]. tel:[phone] Referring Provider: Evangelista Cotton [address], [place], [place], [address]. tel:[phone] OFFICE/OUTPA TIENT VISIT, [facility], [address], [place], [address], [place] tel:[phone] [facility] HLP (chief complaint) low K (chief complaint) glucose1 (chief complaint) HyperlipidemiaHypok alemiaHyperglycemia Body mass index (BMI) 33.0-33.9, adult 6 Yury Naidu. [address], [place], [place], [address] , [place]. [phone] Referring Provider: Toy Soler [address], [place], [address]. tel:[phone] PREV VISIT, EST, AGE 40-64 [facility], [address], [place], [place], [address], [place] tel:[phone] [facility] PHysical (chief complaint) Encounter for general adult medical exam w abnormal findingsGERD without esophagitisEssentia l (primary) hypertensionGeneral ized Anxiety Disorder 6 Yury Naidu. [address], [place], [place], [address] , [place]. [phone] Referring Provider: Toy Soler [address], [place], [address]. tel:[phone] OFFICE/OUTPA TIENT VISIT, [facility], [address], [place], [place], [address], [place] tel:[phone] [facility] HTN (chief complaint) GERD1 (chief complaint) anxiety1 (chief complaint) breast (chief complaint) Essential (primary) hypertensionGERD without esophagitisGenerali zed Anxiety DisorderEdema 6 Yury Naidu. [address], [place], [place], [address] , [place]. [phone] Referring Provider: Toy Soler [address], [place], [place], [address]. tel:[phone] OFFICE/OUTPA TIENT VISIT, EST [facility], [address], [place], [place], [address], [place] tel:[phone] [facility] HTN (chief complaint) anxiety1 (chief complaint) GERD1 (chief complaint) Gastro-esophageal reflux disease without esophagitisGenerali zed anxiety disorderEssential (primary) hypertensionEdema 6 Yury Naidu. [address], [place], [place], [address] , [place]. [phone] Referring Provider: Toy Soler [address], [place], [address]. tel:[phone] OFFICE/OUTPA TIENT VISIT, EST [facility], [address], [place], [address], [place] tel:[phone] [facility] HTN (chief complaint) anxiety1 (chief complaint) GERD1 (chief complaint) edema (chief complaint) sleep apnea1 (chief complaint) Essential (primary) hypertensionGeneral ized anxiety disorderSleep apneaGERD without esophagitis Fe 0 6 Yury Naidu. [address], [place], [place], [address] , [place]. [phone] Referring Provider: Toy Soler [facility] [address], [place], [place], [address]. tel:[phone] OFFICE/OUTPA TIENT VISIT, EST [facility], [address], [place], [place], [address], [place] tel:[phone] [facility] HTN1 (chief complaint) hyperglyce toni (chief complaint) HLP1 (chief complaint) macrocytos is1 (chief complaint) Essential (primary) hypertensionHypergl ycemiaOther specified disease of bloodMixed hyperlipidemia 5 Yury Naidu. [address], [place], [address] , [place]. [phone] Referring Provider: Toy Soler [address], [place], [place], [address]. tel:[phone] PREV VISIT, EST, AGE 40-64 [facility], [address], [place], [place], [address], [place] tel:[phone] [facility] Physical (chief complaint) Encntr for general adult medical exam w/o abnormal findings 5 Yury Naidu. [address], [place], [address] , [place]. [phone] Referring Provider: Toy Soler [address], [place], [place], [address]. tel:[phone] OFFICE/OUTPA TIENT VISIT, [facility], [address], [place], [address], [place] tel:[phone] [facility] HTN (chief complaint) sleep apnea (chief complaint) Anxiety (chief complaint) GERD (chief complaint) Dietary surveillance and counselingEdemaUnsp ecified essential hypertensionUnspeci fied sleep apneaEsophageal reflux 5 Yury Naidu. [address], [place], [place], [address] , [place]. tel:[phone] Referring Provider: Toy Soler [address], [place], [place], [address]. tel:[phone] OFFICE/OUTPA TIENT VISIT, [facility], [address], [place], [address], [place] tel:[phone] [facility] Anxiety (chief complaint) sleep apnea (chief complaint) GERD (chief complaint) edema (chief complaint) Dietary surveillance and counselingGERDSleep ApneaGeneralized anxiety disorderEdema 5 Yury Naidu. [address], [place], [place], [address] , [place]. tel:[phone] Referring Provider: Toy Soler [address], [place], [place], [address]. tel:[phone] OFFICE/OUTPA TIENT VISIT, [facility], [address], [place], [address], [place] tel:[phone] [facility] sleep apnea (chief complaint) anxiety (chief complaint) HTN (chief complaint) Dietary surveillance and counselingSleep ApneaHypertension, UnspecifiedGenerali zed anxiety disorderBody Mass Index 34.0-34.9, adult Oct- 5 Yury Ye[address], [place], [place], [address] , [place]. tel:[phone] Referring Provider: Toy Soler [address], [place], [place], [address]. tel:[phone] OFFICE/OUTPA TIENT VISIT, [facility], [address], [place], [place], [address], [place] tel:[phone] [facility] rash (chief complaint) Pulmonary HTN (chief complaint) Contact dermatitis and other eczema due to other specified agentsPulmonary Hypertension, PrimaryMurmurSleep Apnea 5 Yury Naidu. [address], [place], [place], [address] , [place]. [phone] Referring Provider: Toy Soler [address], [place], [place], [address]. [phone] OFFICE/OUTPA TIENT VISIT, [facility], [address], [place], [address], [place] tel:[phone] [facility] HTN (chief complaint) GERD (chief complaint) anxiety (chief complaint) GERDHypertension, UnspecifiedGenerali zed anxiety disorderMuur 4 Yury Naidu. [address], [place], [place], [address] , [place]. [phone] Referring Provider: Toy Soler [address], [place], [address]. tel:[phone] OFFICE/OUTPA TIENT VISIT, [facility], [address], [place], [place], [address], [place] tel:[phone] [facility] HTN (chief complaint) GERD (chief complaint) anxiety (chief complaint) Dietary surveillance and counselingGERDHyper tension, UnspecifiedGenerali zed anxiety disorder 4 Yury Naiud. [address], [place], [address] , [place]. tel:[phone] Referring Provider: Toy Soler [address], [place], [place], [address]. tel:[phone] OFFICE/OUTPA TIENT VISIT, [facility], [address], [place], [place], [address], [place] tel:[phone] [facility] TG (chief complaint) HTN (chief complaint) GERD (chief complaint) sick (chief complaint) Dietary surveillance and counselingHypertens ion, UnspecifiedOther and unspecified hyperlipidemiaGERD 4 Yury Naidu. [address] [facility] [place], [address] , . tel:[phone] Referring Provider: Evangelista Cotton, [address] [facility] [address], [place], [place], [address]. tel:[phone] PREV VISIT, NEW, AGE 40-64 [facility], [address] [place], [place], [address], tel:[phone] [facility] Physical (chief complaint) Routine Medical ExamDietary surveillance and counselingRoutine Medical Exam 4 Yury Naidu. [address] [facility] [place], [address] , [place]. tel:[phone] Family History Family Member Type Diagnosis Age At Onset Mother Problem (finding) CHF Father Problem (finding) Hypertension Brother Problem (finding) Alive and well Payers Payer name Insurance type Covered alliance party ID Authoriza tion(s) No Information Social [...] XRAY ordered Referral Referred To: Maulik Obrien [facility] [address] [place] [address] [place] [phone] Ordered: Referrals: Allopathic & Osteopathic Physicians : Surgery. Maulik Obrien. Evaluate and treat ordered Referral Ordered: Physical Therapy (related to Lumbago with sciatica, right side) ordered Referral Ordered: LUMBAR XRAY AP AND LAT ONLY ordered Referral Referred To: Physical Therapy Ordered: Referrals: Physical Therapy ordered Referral Ordered: Maulik Obrien (related to Edema) ordered Referral Referred To: Maulik Obrien [place] [address] [place] [address] [place], [phone] Ordered: Referrals: Maulik Obrien. Evaluate and treat [...] since the fall about one week before Dolly. Pt never sought medical attention. 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 Patient denies any suicidal homicidal thoughts. Patient denies any crying spells. Patient takes wellbutrin and celexa and Xanax and doing okay. Patient noticed more motivation. Patient denies any hopelessness. anxiety HTN pt takes losarta n, toprol and spironolactone. her BP is good today. Pt is off norvasc. her edema is also resolved with spironolactone and also lasix Pt is off KCL back pain1 Pt has chronic l ow [...] homicidal thought Pt denies any crying spells HTN Pt has been taki ng losartan, [...] has gastritis. Pt denies any abd apin GERD1 Pt has daily ANTONIETA D and she states that zantac does not help. Pt has GERD daily. No abd pain HTN Pt has HTN and s he takes toprol, norvasc and losarta,hctz. Pt doing ok. Pt denies any chest apin or headache edema1 Pt has LE edema. Pt takes lasix and KCL and doing ok Pt denies any sob. anxity1 Pt has chronic a nxiety and depression. Pt takes celexa and xanax. Pt has been feeling more depressed lately. pt has been having crying spells. Pt feels more depressed lately. Pt denie any suicidal or homicidal thought. HLP Pt has HLP. Pt t akes lipitor and her lipid proflie is ok. Pt has mild high tG Pt denie any myalgia. Pt has mild high glucose but no DM HLP Pt has high TC a nd [...] from her breast. PT wants breast reduction. GERD1 Pt has chronic G ERD Pt doing well with omeprazole. Pt denies any abd pain or any appetite loss or GERD symptoms anxiety1 Pt has chronic a nxiety and depression Pt takes celexa and xanax Pt denies any suicial or homcidial thought. Pt denies any cyring spells HTN Pt has HTN and s he takes toprol, norvasc and losatan.HCZ and her BP is stable. Pt denies any chest apin or headache sleep apnea1 Pt uses cpap nig htly and doing great, Pt feels more energy and she does not have any snoring edema Doing better wit h lasix and KCL. Pt only takes lasix once per day. Pt is on low salt diet Pt denies any swelling GERD1 Pt has gastritis . Pt takes omeprzole. Pt states that she canot tolerate gastritis symptoms without omepraozle. pt has not done bone density yet. Pt doing ok with omeprazole anxiety1 Pt has chronic a nxiety and depression. Pt takes celexa and xanax. Pt doing ok. Pt denies any suicidal thought. Pt denies any crying spells HTN Pt takes losarta n.hCTz norvasc and toprol and her BP is stable. Pt denies any chest pain or headahe HTN1 Pt supposes to t karely norvasc, [...] or homicidal thought. Pt denies crying spells. GERD Associated sympt oms include heartburn. Pertinent negatives include back pain, constipation, diarrhea, dyspnea, fever, hematuria, nausea, rash, vaginal discharge, vomiting, weight gain and weight loss.Additional information:Pt takes omeprazole once per day. Pt has mild gastritis. Pt denies any abd pain or any gERd or any nausea. Anxiety The patient pres ents with anxious/fearful thoughts but denies fatigue. The patient denies any nausea, urinary frequency, vomiting and weight gain. Additional information: Pt has chronic anxiety and depression. Pt takes celexa and xanax and doing ok. Pt denies any suicidasl thought. Her symptoms are well controlled. sleep apnea Relevant history : a BMI of 34.16. The patient is also experiencing heartburn. The patient denies depression or wheezing. Additional information: Pt has been using CPAP machine at night. Pt feels more energy and rest much better. Pt tolearting machine well. Pt uses CPAP throughout the night and everynight. HTN Pt has HTN. Pt t akes losatan/HCTZ, toprol and also norvasc and her BP is around 130/80 at home. Pt denies any chest pain, heaache Instructions Date Instruction Additional Infor mation Special diet education Related t o Body mass index (BMI) 34.0-34.9, adult Increase physical activity Relat ed to Encounter for general adult medical exam w abnormal findings Weight management Related to Enc ounter for general adult medical exam w abnormal findings Increase physical activity Relat ed to Generalized anxiety disorder Weight management Related to Gen eralized anxiety disorder Special diet education Related t o Body mass index (BMI) 35.0-35.9, adult Special diet education Related t o Body [...]
[2024-10-25 14:46] LABS: Anion Gap 6 mmol/L (4-12); Blood Urea Nitrogen 13 mg/dL (7-17); Calcium 9.1 mg/dL (8.4-10.2); Carbon Dioxide 27 mmol/L (22-30); Chloride 104 mmol/L (98-107); Estimated Glomerular Filt Rate > 60; Glucose 77 mg/dL (65-110); Potassium 3.8 mmol/L (3.4-5.0); Sodium 137 mmol/L (137-145)
== END 2024-10-25 13:06 | disposition home or self-care (01) ==
LOC: ANHSURGERY 13:05
PROVIDERS: Anesthesiology; PCP Physician Assistant; Visit Provider Orthopaedic Surgery
DX: Z01.818 Encounter for other preprocedural examination (principal); R94.31 Abnormal electrocardiogram [ECG] [EKG]; I10 Essential (primary) hypertension; Z79.899 Other long term (current) drug therapy
CPT/HCPCS: 36415; 80048; 93005

== ENCOUNTER 2024-10-31 00:43 | Day surgery (SDC) | payer OTHER, SELFPAY ==
[2024-10-19 12:50] VITALS: BMI 36.1
--- NOTE | 2024-10-19 12:52 | PC.NURSE ---
Report to the Outpatient Waiting Room, entrance under the green pavilion located off [facility], at time _1130_ on date _[id number]_. Planned Procedure Time: _130pm_.? Time changes happen often and if your time is changed the preop area will call you the afternoon before. - You and your visitor will be asked to self-screen and do not enter if you have any COVID symptoms. Please call surgeon if you need to reschedule. - A mask is optional within the hospital at this time. Patients may have clear liquids (water, carbonated beverages, clear teas, apple juice) until 3 hours prior to surgery with a maximum of 20 ounces. - No food from midnight until time of surgery and no smoking, or chewing tobacco (or any form of nicotine). No chewing gum, candy or mints. Take only the following medications with a SIP of water on the morning of surgery: __Bupropion, Amlodipine, Citalopram, Metoprolol, Buspirone, Hydroxizine and if needed Clonazepam. DO NOT STOP ANY OF YOUR OTHER PRESCRIPTION MEDICATIONS PRIOR TO SURGERY EXCEPT THE FOLLOWING Hold all vitamins and supplements for 3 days per anesthesiologist. Medications to discontinue per physician Date to take last dose Please no make-up, nail singaporean, hairspray, perfume, deodorant, or body powder the day of surgery.? No jewelry (including any body piercings) or valuables the day of surgery, leave them at home.? Please take a shower or bath the night before, or the morning of, surgery with an antibacterial soap.? Wear comfortable, loose fitting clothing.? - Jewelry must be removed prior to entering the operating room.? Rings and piercings that are not removed may be cut off. - The hospital will not accept responsibility for valuables.? - Please leave all valuables, including medications, at home the day of surgery. If you are going home after surgery, a licensed food mobile driver must drive you home.? - NO public transportation without another adult if you receive anesthesia. - We recommend that an adult stay with you for 24 hours following discharge. - We also recommend that you do not drive, make important decision, drink alcoholic beverages, or take any drugs that were not prescribed by your health care provider for at least 24 hours after your discharge time. Follow any additional instructions given to you from your surgeon. Telephone instructions given to __Peggy___and asked if any additional questions and then verbalized understanding. Patient advised to call surgeon office or pre surgery nurse liaison [phone] if any additional questions.
[2024-10-31] VITALS (11 sets, daily range): BP systolic 129–154; BP diastolic 55–98; PULSE 67–96; RESP 12–20; TEMP 36.3–36.7; O2SAT 93–99
--- OUTSIDE RECORDS SUMMARY | 2024-10-31 00:46 | XMS_ITS | Clinical Summary ---
Author Organization 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
--- OUTSIDE RECORDS SUMMARY | 2024-10-31 00:46 | XMS_ITS | Continuity of Care Document ---
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 [address] [place], [address] , [place]. tel:[phone] Referring Provider: Toy Soler [facility] [place], [address]. tel:[phone] PREV VISIT, EST, AGE 40-64 [facility], [address], [place], [place], [address], [place] tel:[phone] [facility] PHysical (chief complaint) Encounter for general adult medical exam w abnormal findingsPain in left fingerEssential (primary) hypertensionGeneral ized anxiety disorderHyperlipide miaAlcohol dependence Fe 9 Yury Naidu. [address], [place], [place], [address] , [place]. [phone] Referring Provider: Toy Soler [address], [place], [place], [address]. tel:[phone] OFFICE/OUTPA TIENT VISIT, [facility], [address], [place], [place], [address], [place] tel:[phone] [facility] HTN (chief complaint) anxiety (chief complaint) anxiety1 (chief complaint) breast1 (chief complaint) Encounter for oth screening for malignant neoplasm of breastGeneralized anxiety disorderEssential (primary) hypertensionEdema 8 Yury Naidu. [address], [place], [place], [address] , [place]. [phone] Referring Provider: Toy Soler [address], [place], [place], [address]. tel:[phone] OFFICE/OUTPA TIENT VISIT, [facility], [address], [place], [place], [address], [place] tel:[phone] [facility] HTN (chief complaint) anxiety1 (chief complaint) back pain1 (chief complaint) sleep apnea1 (chief complaint) EdemaEssential (primary) hypertensionGeneral ized anxiety disorderEncounter for screening for malignant neoplasm of colonTobacco useSleep apnea 8 Yury Taylor [address], [place], [place], [address] , [place]. [phone] Referring Provider: Toy Soler [address], [place], [place], [address]. tel:[phone] OFFICE/OUTPA TIENT VISIT, [facility], [address], [place], [place], [address], [place] tel:[phone] [facility] HTN (chief complaint) edema1 (chief complaint) anxiety1 (chief complaint) back pain1 (chief complaint) EdemaEssential (primary) hypertensionLumbago with sciatica, right sideGeneralized anxiety disorder 8 Yury Naidu. [address], [place], [place], [address] , [place]. tel:[phone] Referring Provider: Toy Soler [facility], [place], [place], [address]. tel:[phone] OFFICE/OUTPA TIENT VISIT, [facility], [address], [place], [place], [address], [place] tel:[phone] [facility] HLP (chief complaint) vitamin1 (chief complaint) anxiety1 (chief complaint) HTN (chief complaint) Body mass index (BMI) 34.0-34.9, adultHyperlipidemia Essential (primary) hypertensionEdemaGe neralized anxiety disorder 8 Yury Naidu. [address], [place], [place], [address] , [place]. tel:[phone] Referring Provider: Toy Soler [address], [place], [place], [address]. tel:[phone] OFFICE/OUTPA TIENT VISIT, [facility], [address], [place], [place], [address], [place] tel:[phone] [facility] GERD1 (chief complaint) anxity1 (chief complaint) bee sting (chief complaint) Generalized Anxiety DisorderBee allergy statusGERD without esophagitisHyperlip idemia 8 Yury Naidu. [address], [place], [place], [address] , [place]. tel:[phone] Referring Provider: Toy Soler [address], [place], [place], [address]. tel:[phone] PREV VISIT, EST, AGE 40-64 [facility], [address], [place], [place], [address], [place] tel:[phone] [facility] Physical (chief complaint) Essential (primary) hypertensionGeneral ized Anxiety DisorderEncounter for general adult medical exam w abnormal findingsEdema 7 Yury Naidu. [address], [place], [place], [address] , [place]. [phone] Referring Provider: Toy Soler [address], [place], [place], [address]. tel:[phone] OFFICE/OUTPA TIENT VISIT, [facility], [address], [place], [place], [address], [place] tel:[phone] [facility] sinus (chief complaint) anxity1 (chief complaint) HTN (chief complaint) Generalized Anxiety DisorderAcute upper respiratory infection, unspecifiedEssentia l (primary) hypertensionBody mass index (BMI) 34.0-34.9, adult 7 Yury Naidu. [address], [place], [place], [address] , [place]. [phone] OFFICE/OUTPA TIENT VISIT, [facility], [address], [place], [place], [address], [place] tel:[phone] [facility] HTN (chief complaint) anxiety1 (chief complaint) GERD1 (chief complaint) Essential (primary) hypertensionGERD without esophagitisGenerali zed Anxiety DisorderBee allergy status 7 Yury Naidu. [address], [place], [place], [address] , [place]. [phone] Referring Provider: Toy Soler [address], [place], [place], [address]. tel:[phone] OFFICE/OUTPA TIENT VISIT, [facility], [address], [place], [place], [address], [place] tel:[phone] [facility] HLP (chief complaint) anxity1 (chief complaint) edema1 (chief complaint) HTN (chief complaint) GERD1 (chief complaint) Essential (primary) hypertensionHyperli pidemiaGeneralized Anxiety DisorderGERD without esophagitis 0 7 Yury Naidu. [address], [place], [address] , [place]. tel:[phone] Referring Provider: Toy Soler [address], [place], [place], [address]. tel:[phone] OFFICE/OUTPA TIENT VISIT, [facility], [address], [place], [address], [place] tel:[phone] [facility] anxiety1 (chief complaint) glucose (chief complaint) GERD1 (chief complaint) HLP (chief complaint) HyperlipidemiaHyper glycemiaHypokalemia GERD without esophagitis 7 Yury Naidu. [address], [place], [place], [address] , [place]. tel:[phone] Referring Provider: Evangelista Cotton [address], [place], [place], [address]. tel:[phone] OFFICE/OUTPA TIENT VISIT, [facility], [address], [place], [place], [address], [place] tel:[phone] [facility] calf nodule1 (chief complaint) Lipoma 7 Yury Taylor [address], [place], [place], [address] , [place]. tel:[phone] Referring Provider: Evangelista Cotton [address], [place], [place], [address]. tel:[phone] OFFICE/OUTPA TIENT VISIT, [facility], [address], [place], [place], [address], [place] tel:[phone] [facility] HLP (chief complaint) low K (chief complaint) glucose1 (chief complaint) HyperlipidemiaHypok alemiaHyperglycemia Body mass index (BMI) 33.0-33.9, adult 6 Yury Naidu. [address], [place], [address] , [place]. [phone] Referring Provider: Toy Soler [address], [place], [place], [address]. tel:[phone] PREV VISIT, EST, AGE 40-64 [facility], [address], [place], [place], [address], [place] tel:[phone] [facility] PHysical (chief complaint) Encounter for general adult medical exam w abnormal findingsGERD without esophagitisEssentia l (primary) hypertensionGeneral ized Anxiety Disorder 6 Yury Naidu. [address], [place], [place], [address] , [place]. [phone] Referring Provider: Toy Soler [address], [place], [place], [address]. tel:[phone] OFFICE/OUTPA TIENT VISIT, [facility], [address], [place], [address], [place] tel:[phone] [facility] HTN (chief complaint) GERD1 (chief complaint) anxiety1 (chief complaint) breast (chief complaint) Essential (primary) hypertensionGERD without esophagitisGenerali zed Anxiety DisorderEdema 6 Yury Naidu. [address], [place], [address] , [place]. [phone] Referring Provider: Toy Soler [address], [place], [place], [address]. tel:[phone] OFFICE/OUTPA TIENT VISIT, EST [facility], [address], [place], [address], [place] tel:[phone] [facility] HTN (chief complaint) anxiety1 (chief complaint) GERD1 (chief complaint) Gastro-esophageal reflux disease without esophagitisGenerali zed anxiety disorderEssential (primary) hypertensionEdema 6 Yury Naidu. [address], [place], [address] , [place]. [phone] Referring Provider: Toy Soler [address], [place], [place], [address]. tel:[phone] OFFICE/OUTPA TIENT VISIT, EST [facility], [address], [place], [place], [address], [place] tel:[phone] [facility] HTN (chief complaint) anxiety1 (chief complaint) GERD1 (chief complaint) edema (chief complaint) sleep apnea1 (chief complaint) Essential (primary) hypertensionGeneral ized anxiety disorderSleep apneaGERD without esophagitis Fe 0 6 Yury Naidu. [address], [place], [place], [address] , [place]. [phone] Referring Provider: Toy Soler [facility], [place], [place], [address]. tel:[phone] OFFICE/OUTPA TIENT VISIT, EST [facility], [address], [place], [address], [place] tel:[phone] [facility] HTN1 (chief complaint) hyperglyce toni (chief complaint) HLP1 (chief complaint) macrocytos is1 (chief complaint) Essential (primary) hypertensionHypergl ycemiaOther specified disease of bloodMixed hyperlipidemia 5 Yury Naidu. [address], [place], [place], [address] , [place]. [phone] Referring Provider: Toy Soler [address], [place], [place], [address]. tel:[phone] PREV VISIT, EST, AGE 40-64 [facility], [address], [place], [place], [address], [place] tel:[phone] [facility] Physical (chief complaint) Encntr for general adult medical exam w/o abnormal findings 5 Yury Naidu. [address], [place], [place], [address] , [place]. [phone] Referring Provider: Toy Soler [address], [place], [place], [address]. tel:[phone] OFFICE/OUTPA TIENT VISIT, [facility], [address], [place], [address], [place] tel:[phone] [facility] HTN (chief complaint) sleep apnea (chief complaint) Anxiety (chief complaint) GERD (chief complaint) Dietary surveillance and counselingEdemaUnsp ecified essential hypertensionUnspeci fied sleep apneaEsophageal reflux 5 Yury Naidu. [address], [place], [place], [address] , [place]. tel:[phone] Referring Provider: Toy Soler [address], [place], [place], [address]. tel:[phone] OFFICE/OUTPA TIENT VISIT, [facility], [address], [place], [address], [place] tel:[phone] [facility] Anxiety (chief complaint) sleep apnea (chief complaint) GERD (chief complaint) edema (chief complaint) Dietary surveillance and counselingGERDSleep ApneaGeneralized anxiety disorderEdema 5 Yury Naidu. [address], [place], [place], [address] , [place]. tel:[phone] Referring Provider: Toy Soler [address], [place], [place], [address]. tel:[phone] OFFICE/OUTPA TIENT VISIT, [facility], [address], [place], [place], [address], [place] tel:[phone] [facility] sleep apnea (chief complaint) anxiety (chief complaint) HTN (chief complaint) Dietary surveillance and counselingSleep ApneaHypertension, UnspecifiedGenerali zed anxiety disorderBody Mass Index 34.0-34.9, adult Oct- 5 Yury Ye[address], [place], [place], [address] , [place]. tel:[phone] Referring Provider: Toy Soler [address], [place], [address]. tel:[phone] OFFICE/OUTPA TIENT VISIT, [facility], [address], [place], [place], [address], [place] tel:[phone] [facility] rash (chief complaint) Pulmonary HTN (chief complaint) Contact dermatitis and other eczema due to other specified agentsPulmonary Hypertension, PrimaryMurmurSleep Apnea 5 Yury Naidu. [address], [place], [place], [address] , [place]. [phone] Referring Provider: Toy Soler [address], [place], [place], [address]. tel:[phone] OFFICE/OUTPA TIENT VISIT, [facility], [address], [place], [place], [address], [place] tel:[phone] [facility] HTN (chief complaint) GERD (chief complaint) anxiety (chief complaint) GERDHypertension, UnspecifiedGenerali zed anxiety disorderMuur 4 Yury Naidu. [address], [place], [place], [address] , [place]. [phone] Referring Provider: Toy Soler [address], [place], [place], [address]. tel:[phone] OFFICE/OUTPA TIENT VISIT, [facility], [address], [place], [place], [address], [place] tel:[phone] [facility] HTN (chief complaint) GERD (chief complaint) anxiety (chief complaint) Dietary surveillance and counselingGERDHyper tension, UnspecifiedGenerali zed anxiety disorder 4 Yury Naidu. [address], [place], [address] , [place]. tel:[phone] Referring Provider: Toy Soler [address], [place], [place], [address]. tel:[phone] OFFICE/OUTPA TIENT VISIT, [facility], [address], [place], [place], [address], [place] tel:[phone] [facility] TG (chief complaint) HTN (chief complaint) GERD (chief complaint) sick (chief complaint) Dietary surveillance and counselingHypertens ion, UnspecifiedOther and unspecified hyperlipidemiaGERD 4 Yury Naidu. [address] [facility] [place], [address] , . tel:[phone] Referring Provider: Evangelista Cotton, [address] [facility] A, [place], [place], [address]. tel:[phone] PREV VISIT, NEW, AGE 40-64 [facility], [address], [place], [address], tel:[phone] [facility] Physical (chief complaint) Routine Medical ExamDietary surveillance and counselingRoutine Medical Exam 4 Yury Naidu. [address] [facility] [place], [address] , [place]. tel:[phone] Family History Family Member Type Diagnosis Age At Onset Mother Problem (finding) CHF Father Problem (finding) Hypertension Brother Problem (finding) Alive and well Payers Payer name Insurance type Covered green party ID Authoriza tion(s) No Information Social [...] XRAY ordered Referral Referred To: Maulik Obrien [facility] [address] [place] [address] [place] [phone] Ordered: Referrals: Allopathic & Osteopathic Physicians : Surgery. Maulik Obrien. Evaluate and treat ordered Referral Ordered: Physical Therapy (related to Lumbago with sciatica, right side) ordered Referral Ordered: LUMBAR XRAY AP AND LAT ONLY ordered Referral Referred To: Physical Therapy Ordered: Referrals: Physical Therapy ordered Referral Ordered: Maulik Obrien (related to Edema) ordered Referral Referred To: Maulik Obrien [place] [address] [place] [address] [place], [id number] Ordered: Referrals: Maulik Obrien. 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 Patient denies [...] Generalized anxiety disorder Weight management Related to Jaswinder [...] sodium diet. Relate d to Hyperlipidemia Prescribed Diet Educ ation/Lifestyle Education Regarding Diet Related to Dietary Surveillance and Counseling Prescribed Activity and Exercise Education Related to Dietary Surveillance and Counseling Weight [...] counseling Related to Di etary surveillance counseling Dietary counseling Related to Di etary surveillance counseling Decrease caloric intake Related to Dietary surveillance counseling Assessments Type Assessment Date No Information
--- NOTE | 2024-10-31 07:23 | WPDHPUPDATE1 ---
History and Physical Update Update Date/Time: 10/31/24 07:23 History and Physical has been reviewed, including an updated exam of the patient. There are NO changes in the patient's condition. Risks, benefits, and alternatives have been discussed and questions answered. Patient agrees to proceed with procedure.
[2024-10-31] MEDS: ACETAMINOPHEN 500 MG TABLET 1000 MG PO (12:00)
[2024-10-31] MEDS: KETOROLAC 15 MG/ML VIAL (*BKC) IV PUSH (12:15)
--- NOTE | 2024-10-31 12:37 | WPDANESEPPF ---
Anes - Initial Pre Proc Eval Procedure: Operation Date: 10/31/24 13:30 Proposed Procedures p Left Knee Arthroscopy, Proceed As Indicated - Juan Antonio Gamboa MD Date/Time: 10/31/24 12:37 Surgeon: Juan Antonio Gamboa MD Pre Op Diagnosis: left knee meniscal tear Patient Data Age: 59 Gender: F Height: 1.63 m Weight: 91.5 kg Last Vital Signs Temp 36.3 C L 10/31/24 11:40 Pulse 96 10/31/24 11:40 Resp 16 10/31/24 11:40 BP 147/98 H 10/31/24 11:40 Pulse Ox 97 10/31/24 11:40 O2 Del Method Autopap 10/31/24 11:40 Allergies Allergy/AdvReac Type Severity Reaction Status Date / Time No Known Allergies Allergy Unknown Verified 10/31/24 12:26 Home Medications ?Medication ?Instructions ?Recorded ?Confirmed ?Type amlodipine 10 mg tablet 10 mg PO DAILY 02/27/20 10/31/24 History bupropion HCl 150 mg 24 hr tablet, 150 mg PO DAILY 02/27/20 10/31/24 History extended release buspirone 15 mg tablet 15 mg PO BID 02/27/20 10/31/24 History citalopram 40 mg tablet 40 mg PO DAILY 02/27/20 10/31/24 History furosemide 20 mg tablet 20 mg PO DAILY 02/27/20 10/31/24 History losartan 100 mg tablet 100 mg PO DAILY 02/27/20 10/31/24 History metoprolol succinate 50 mg 50 mg PO DAILY 02/27/20 10/31/24 History tablet,extended release 24 hr spironolactone 50 mg tablet 50 mg PO DAILY 02/27/20 10/31/24 History trazodone 100 mg tablet 100 mg PO HS 02/27/20 10/31/24 History hydroxyzine HCl 25 mg tablet 25 mg PO DAILY 04/17/21 10/31/24 History clonazepam 0.5 mg tablet 0.5 mg PO DAILY PRN Anxiety 12/10/21 10/31/24 History omeprazole 40 mg capsule,delayed See Rx Instructions .Route 03/06/24 10/31/24 Rx release .COMPLEX #60 caps Patient hx anesthesia problems: none Family hx anesthesia problems: none Results Review: All pre-operative results and documents have been reviewed as part of the pre-operative evaluation. [facility] Past Medical History Medical History Right knee DJD Colon cancer screening Odynophagia Dysphagia Lateral meniscus tear Chondromalacia of knee Medial meniscus tear Left knee DJD Left knee pain Chronic cholecystitis Obesity HLD (hyperlipidemia) Depression with anxiety GERD (gastroesophageal reflux disease) Sleep apnea HTN (hypertension) Surgical History Surgical History Hx laparoscopic cholecystectomy History of conization of cervix Family History Family History Father Hypertension Mother CHF (congestive heart failure) Social History Social History Years smoked: 30 Smoking status: Former smoker Tobacco type: cigarettes and e-cigarettes/vaping Smoking end date: 10/19/14 Additional smoking assessment comments: Vaping currently Alcohol intake: current Drinks per week: 5 Alcohol use details: 5 drinks monthly Substance use: never Substance use type: does not use Living arrangements: with family Occupation/Education: occupation 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 Informed Consent: The patient's anesthetic plan and its attendant risks and benefits were discussed with the patient/family/POA. Questions were solicited and answers provided to the satisfaction of the patient/family/POA.
[2024-10-31] MEDS: ceFAZolin 2 GM/D5W 50 ML 2 GM/50 ML BAG IVPB (13:22)
[2024-10-31] MEDS: BUPivacaine HCL 0.5% 10 ML AMP 30 ML INFILTRATE (13:46)
[2024-10-31] MEDS: LACTATED RINGERS 1,000 ML 30 ML IV CONT ×2 (14:53)
--- NOTE | 2024-10-31 14:55 | W.PM.PROC2 ---
Procedure Note - Detailed Date of Procedure 10/31/24 Pre-op Diagnosis left knee medial and lateral meniscus tear Post-op Diagnosis Same Procedure Performed LEFT KNEE SCOPE Surgeon Juan Antonio Gamboa MD Anesthesia General Description of Procedure PATIENT WAS TAKEN TO THE OR. LEFT LEG WAS PREPPED AND DRAPED STERILE. TROCARS WERE PLACED IN THE USUAL FASHION. CAMERA WAS INTRODUCED. THERE WAS CHONDROMALACIA TO THE PATELLA FEMORAL JOINT. THERE WAS A LOT OF SYNOVITIS IN ALL COMPARTMENTS. THE MEDIAL COMPARTMENT SHOWED CHONDROMALACIA TO THE MEDIAL FEMORAL CONDYLE. A SHAVER WAS USED TO PREFORM A CHONDROPLASTY. THERE WAS A COMPLEX MEDIAL MENISCUS TEAR. THE TEAR WAS RESECTED WITH A BITER AND A SHAVER DOWN TO A SMOOTH BASE. THE ACL WAS PARTIALLY TORN WITH DEGENERATIVE TEARING BUT WAS INTACT. THE LATERAL MENISCUS WAS TORN AND WAS RESECTED AT THE MID SUBSTANCE. THE LATERAL COMPARTMENT HAD GRADE 2 CHONDROMALACIA. CHONDROPLASTY WAS PREFORMED. A SYNOVECTOMY WAS PREFORMED WELL. THE PATELLO FEMORAL JOINT UNDERWENT CHONDROPLASTY. THERE WAS GRADE 3 AND 4 CHONDROMALACIA IN PART OF THE TROCHLEA AND PART OF THE PATELLA. SYNOVECTOMY WAS PREFORMED IN THE SUPERIOR MEDIAL COMPARTMENT. THE WOUNDS WERE APPROXIMATED WITH 4.0 NYLON. STERILE DRESSING WAS APPLIED. PATIENT WAS EXTUBATED. Estimated Blood Loss -5.0 Complications No immediate complications Condition Stable Disposition PACU
[2024-10-31] MEDS: fentaNYL CITRATE INJ (*CRX) 100 MCG/2 ML VIAL 25 MCG IV PUSH ×6 (15:03→15:47)
--- NOTE | 2024-10-31 15:08 | SUR.PHASEI ---
9952 - dr. renteria at bedside
[2024-10-31] MEDS: oxyCODONE HCL (*CRX) 5 MG TAB IR PO (16:25)
[2024-10-31] MEDS: ONDANSETRON INJ 4 MG/2 ML VIAL IV PUSH (16:25)
== END 2024-10-31 17:13 | disposition home or self-care (01) ==
PROVIDERS: PCP Physician Assistant; Visit Provider Orthopaedic Surgery
PROC: (CPT 29870; principal; 2024-10-31 13:30)
DX: S83.232A Complex tear of medial meniscus, current injury, left knee, initial encounter (principal); S83.282A Other tear of lateral meniscus, current injury, left knee, initial encounter; M94.262 Chondromalacia, left knee; M65.862 Other synovitis and tenosynovitis, left lower leg; M17.0 Bilateral primary osteoarthritis of knee; E78.5 Hyperlipidemia, unspecified; I10 Essential (primary) hypertension; K21.9 Gastro-esophageal reflux disease without esophagitis; K81.1 Chronic cholecystitis; F41.8 Other specified anxiety disorders; G47.30 Sleep apnea, unspecified; F17.290 Nicotine dependence, other tobacco product, uncomplicated; E66.9 Obesity, unspecified; Z68.34 Body mass index [BMI] 34.0-34.9, adult; W19.XXXA Unspecified fall, initial encounter; Z79.899 Other long term (current) drug therapy; Z98.890 Other specified postprocedural states; Z90.49 Acquired absence of other specified parts of digestive tract; Z82.49 Family history of ischemic heart disease and other diseases of the circulatory system
CPT/HCPCS: 29880; A9270; J0690; J1100; J1885; J2003; J2250; J2405; J2704; J3010; J7120

== ENCOUNTER 2024-12-27 07:52 | Emergency (ER) | payer OTHER, SELFPAY ==
--- NOTE | ~2024-12-27 | XR_ITS ---
Left Knee Technique: AP, lateral, and sunrise views were obtained. Clinical History: Pain Findings: There is an oblique, comminuted, minimally displaced fracture the proximal fibular shaft. N o other fracture or dislocation seen.. Joint spaces are preserved without degenerative or erosive alessandro nge. Soft tissues are unremarkable. No joint effusion is seen. Impression: Oblique, comminuted, minimally displaced fracture the proximal fibular shaft. Reviewed, dictated and finalized at location M. Impression: Oblique, comminuted, minimally displaced fracture the proximal fibular shaft.
--- NOTE | ~2024-12-27 | XR_ITS ---
Left ankle Technique: AP, oblique, and lateral views were obtained. Clinical History: Pain Findings: There is a questionable linear lucency through the posterior malleolus on one of the 2 cros stable lateral views, but this lucency is not confirmed on the second view. This is felt to most like ly be artifactual. If there is concern for fracture of the posterior malleolus, then CT could be purs ued for further evaluation. Ankle mortise and other visualized joint spaces are preserved. Soft tiss ues are otherwise unremarkable. Impression: No definite abnormality seen. Probable artifactual linear lucency through the posterior malleolus on one of the 2 crosstable lateral views. If there is persistent concern for posterior malleolus fractur e, then CT would be recommended for further evaluation. Reviewed, dictated and finalized at location . Impression: No definite abnormality seen. Probable artifactual linear lucency through the p osterior malleolus on one of the 2 crosstable lateral views. If there is persis tent concern for posterior malleolus fracture, then CT would be recommended for further evaluation.
--- NOTE | ~2024-12-27 | XR_ITS ---
AP and lateral views of the left tibia/fibula Clinical History: Pain Findings: There is oblique, minimally displaced fracture the proximal fibular shaft. No other fractur e or dislocation seen.. Joint spaces are preserved without significant erosive or degenerative change . Soft tissues are unremarkable. Impression: Oblique minimally displaced fracture the proximal fibular shaft. Reviewed, dictated and finalized at location . Impression: Oblique minimally displaced fracture the proximal fibular shaft.
--- NOTE | ~2024-12-27 | CT_ITS ---
Noncontrast CT scan of the left ankle CLINICAL HISTORY: Possible occult fracture TECHNIQUE: Axial noncontrast imaging of the left ankle was performed. Sagittal and coronal reformatte d images were constructed. Dose reduction technique was used on this scan by utilizing automated expo sure control and iterative reconstruction technique. The dose-length product (DLP) was 337.32 mGy-cm. Findings: There is a vertically oriented (coronal plane) fracture of the posterior malleolus, with in tra-articular extension at the distal tibia, but no displacement. There is also oblique fracture of t he base of the medial malleolus, displaced by up to 7 mm. Alignment at the ankle mortise remains esse ntially anatomic otherwise. No other fracture or dislocation seen. Joint spaces are intact. Subcutaneous soft tissues are essentially unremarkable. IMPRESSION: Vertically oriented nondisplaced intra-articular posterior malleolus fracture, as detailed above. Oblique mildly displaced fracture at the base the medial malleolus, as detailed above. Reviewed, dictated and finalized at location .
--- NOTE | ~2024-12-27 | XR_ITS ---
AP view of the pelvis and AP and lateral views of the left hip Clinical history: Pain Findings: No acute fracture or dislocation is seen. Osseous alignment is anatomic. Bilateral hip and SI joint spaces are preserved. Soft tissues are unremarkable. Impression: No significant abnormality is seen. Reviewed, dictated and finalized at location . Impression: No significant abnormality is seen.
[2024-12-27 07:56] VITALS: BP 167/90; PULSE 71; RESP 18; TEMP 36.8; O2SAT 97
--- OUTSIDE RECORDS SUMMARY | 2024-12-27 07:58 | XMS_ITS | Continuity of Care Document ---
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 [address] [place], [address] , [place]. tel:[phone] Referring Provider: Toy Soler [facility] [place], [address]. tel:[phone] PREV VISIT, EST, AGE 40-64 [facility], [address], [place], [place], [address], [place] tel:[phone] [facility] PHysical (chief complaint) Encounter for general adult medical exam w abnormal findingsPain in left fingerEssential (primary) hypertensionGeneral ized anxiety disorderHyperlipide miaAlcohol dependence Fe 9 Yury Naidu. [address], [place], [place], [address] , [place]. [phone] Referring Provider: Toy Soler [address], [place], [place], [address]. tel:[phone] OFFICE/OUTPA TIENT VISIT, [facility], [address], [place], [place], [address], [place] tel:[phone] [facility] HTN (chief complaint) anxiety (chief complaint) anxiety1 (chief complaint) breast1 (chief complaint) Encounter for oth screening for malignant neoplasm of breastGeneralized anxiety disorderEssential (primary) hypertensionEdema 8 Yury Naidu. [address], [place], [place], [address] , [place]. [phone] Referring Provider: Toy Soler [address], [place], [place], [address]. tel:[phone] OFFICE/OUTPA TIENT VISIT, [facility], [address], [place], [address], [place] tel:[phone] [facility] HTN (chief complaint) anxiety1 (chief complaint) back pain1 (chief complaint) sleep apnea1 (chief complaint) EdemaEssential (primary) hypertensionGeneral ized anxiety disorderEncounter for screening for malignant neoplasm of colonTobacco useSleep apnea 8 Yury Taylor [address], [place], [place], [address] , [place]. [phone] Referring Provider: Toy Soler [address], [place], [place], [address]. tel:[phone] OFFICE/OUTPA TIENT VISIT, [facility], [address], [place], [address], [place] tel:[phone] [facility] HTN (chief complaint) edema1 (chief complaint) anxiety1 (chief complaint) back pain1 (chief complaint) EdemaEssential (primary) hypertensionLumbago with sciatica, right sideGeneralized anxiety disorder 8 Yury Naidu. [address], [place], [place], [address] , [place]. tel:[phone] Referring Provider: Toy Soler [facility] [address], [place], [place], [address]. tel:[phone] OFFICE/OUTPA TIENT VISIT, [facility], [address], [place], [place], [address], [place] tel:[phone] [facility] HLP (chief complaint) vitamin1 (chief complaint) anxiety1 (chief complaint) HTN (chief complaint) Body mass index (BMI) 34.0-34.9, adultHyperlipidemia Essential (primary) hypertensionEdemaGe neralized anxiety disorder 8 Yury Naidu. [address], [place], [place], [address] , [place]. tel:[phone] Referring Provider: Toy Soler [address], [place], [place], [address]. tel:[phone] OFFICE/OUTPA TIENT VISIT, [facility], [address], [place], [place], [address], [place] tel:[phone] [facility] GERD1 (chief complaint) anxity1 (chief complaint) bee sting (chief complaint) Generalized Anxiety DisorderBee allergy statusGERD without esophagitisHyperlip idemia 8 Yury Naidu. [address], [place], [place], [address] , [place]. tel:[phone] Referring Provider: Toy Soler [address], [place], [place], [address]. tel:[phone] PREV VISIT, EST, AGE 40-64 [facility], [address], [place], [address], [place] tel:[phone] [facility] Physical (chief complaint) Essential (primary) hypertensionGeneral ized Anxiety DisorderEncounter for general adult medical exam w abnormal findingsEdema 7 Yury Naidu. [address], [place], [place], [address] , [place]. [phone] Referring Provider: Toy Soler [address], [place], [address]. tel:[phone] OFFICE/OUTPA TIENT VISIT, [facility], [address], [place], [place], [address], [place] tel:[phone] [facility] sinus (chief complaint) anxity1 (chief complaint) HTN (chief complaint) Generalized Anxiety DisorderAcute upper respiratory infection, unspecifiedEssentia l (primary) hypertensionBody mass index (BMI) 34.0-34.9, adult 7 Yury Naidu. [address], [place], [place], [address] , [place]. [phone] OFFICE/OUTPA TIENT VISIT, [facility], [address], [place], [place], [address], [place] tel:[phone] [facility] HTN (chief complaint) anxiety1 (chief complaint) GERD1 (chief complaint) Essential (primary) hypertensionGERD without esophagitisGenerali zed Anxiety DisorderBee allergy status 7 Yury Naidu. [address], [place], [address] , [place]. [phone] Referring Provider: Toy Soler [address], [place], [place], [address]. tel:[phone] OFFICE/OUTPA TIENT VISIT, [facility], [address], [place], [address], [place] tel:[phone] [facility] HLP (chief complaint) anxity1 (chief complaint) edema1 (chief complaint) HTN (chief complaint) GERD1 (chief complaint) Essential (primary) hypertensionHyperli pidemiaGeneralized Anxiety DisorderGERD without esophagitis 0 7 Yury Naidu. [address], [place], [address] , [place]. tel:[phone] Referring Provider: Toy Soler [address], [place], [place], [address]. tel:[phone] OFFICE/OUTPA TIENT VISIT, [facility], [address], [place], [address], [place] tel:[phone] [facility] anxiety1 (chief complaint) glucose (chief complaint) GERD1 (chief complaint) HLP (chief complaint) HyperlipidemiaHyper glycemiaHypokalemia GERD without esophagitis 7 Yury Naidu. [address], [place], [place], [address] , [place]. tel:[phone] Referring Provider: Evangelista Cotton [address], [place], [place], [address]. tel:[phone] OFFICE/OUTPA TIENT VISIT, [facility], [address], [place], [address], [place] tel:[phone] [facility] calf nodule1 (chief complaint) Lipoma 7 Yury Taylor [address], [place], [place], [address] , [place]. tel:[phone] Referring Provider: Evangelista Cotton [address], [place], [place], [address]. tel:[phone] OFFICE/OUTPA TIENT VISIT, [facility], [address], [place], [place], [address], [place] tel:[phone] [facility] HLP (chief complaint) low K (chief complaint) glucose1 (chief complaint) HyperlipidemiaHypok alemiaHyperglycemia Body mass index (BMI) 33.0-33.9, adult 6 Yury Naidu. [address], [place], [address] , [place]. [phone] Referring Provider: Toy Soler [address], [place], [place], [address]. tel:[phone] PREV VISIT, EST, AGE 40-64 [facility], [address], [place], [place], [address], [place] tel:[phone] [facility] PHysical (chief complaint) Encounter for general adult medical exam w abnormal findingsGERD without esophagitisEssentia l (primary) hypertensionGeneral ized Anxiety Disorder 6 Yury Naidu. [address], [place], [address] , [place]. [phone] Referring Provider: Toy Soler [address], [place], [place], [address]. tel:[phone] OFFICE/OUTPA TIENT VISIT, [facility], [address], [place], [address], [place] tel:[phone] [facility] HTN (chief complaint) GERD1 (chief complaint) anxiety1 (chief complaint) breast (chief complaint) Essential (primary) hypertensionGERD without esophagitisGenerali zed Anxiety DisorderEdema 6 Yury Naidu. [address], [place], [address] , [place]. [phone] Referring Provider: Toy Soler [address], [place], [address]. tel:[phone] OFFICE/OUTPA TIENT VISIT, EST [facility], [address], [place], [place], [address], [place] tel:[phone] [facility] HTN (chief complaint) anxiety1 (chief complaint) GERD1 (chief complaint) Gastro-esophageal reflux disease without esophagitisGenerali zed anxiety disorderEssential (primary) hypertensionEdema 6 Yury Naidu. [address], [place], [place], [address] , [place]. [phone] Referring Provider: Toy Soler [address], [place], [place], [address]. tel:[phone] OFFICE/OUTPA TIENT VISIT, EST [facility], [address], [place], [address], [place] tel:[phone] [facility] HTN (chief complaint) anxiety1 (chief complaint) GERD1 (chief complaint) edema (chief complaint) sleep apnea1 (chief complaint) Essential (primary) hypertensionGeneral ized anxiety disorderSleep apneaGERD without esophagitis Fe 0 6 Yury Naidu. [address], [place], [place], [address] , [place]. [phone] Referring Provider: Toy Soler [facility] [address], [place], [place], [address]. tel:[phone] OFFICE/OUTPA TIENT VISIT, EST [facility], [address], [place], [address], [place] tel:[phone] [facility] HTN1 (chief complaint) hyperglyce toni (chief complaint) HLP1 (chief complaint) macrocytos is1 (chief complaint) Essential (primary) hypertensionHypergl ycemiaOther specified disease of bloodMixed hyperlipidemia 5 Yury Naidu. [address], [place], [address] , [place]. [phone] Referring Provider: Toy Soler [address], [place], [place], [address]. tel:[phone] PREV VISIT, EST, AGE 40-64 [facility], [address], [place], [place], [address], [place] tel:[phone] [facility] Physical (chief complaint) Encntr for general adult medical exam w/o abnormal findings 5 Yury Naidu. [address], [place], [place], [address] , [place]. [phone] Referring Provider: Toy Soler [address], [place], [place], [address]. tel:[phone] OFFICE/OUTPA TIENT VISIT, [facility], [address], [place], [place], [address], [place] tel:[phone] [facility] HTN (chief complaint) sleep apnea (chief complaint) Anxiety (chief complaint) GERD (chief complaint) Dietary surveillance and counselingEdemaUnsp ecified essential hypertensionUnspeci fied sleep apneaEsophageal reflux 5 Yury Naidu. [address], [place], [place], [address] , [place]. tel:[phone] Referring Provider: Toy Soler [address], [place], [place], [address]. tel:[phone] OFFICE/OUTPA TIENT VISIT, [facility], [address], [place], [address], [place] tel:[phone] [facility] Anxiety (chief complaint) sleep apnea (chief complaint) GERD (chief complaint) edema (chief complaint) Dietary surveillance and counselingGERDSleep ApneaGeneralized anxiety disorderEdema 5 Yury Naidu. [address], [place], [place], [address] , [place]. tel:[phone] Referring Provider: Toy Soler [address], [place], [place], [address]. tel:[phone] OFFICE/OUTPA TIENT VISIT, [facility], [address], [place], [place], [address], [place] tel:[phone] [facility] sleep apnea (chief complaint) anxiety (chief complaint) HTN (chief complaint) Dietary surveillance and counselingSleep ApneaHypertension, UnspecifiedGenerali zed anxiety disorderBody Mass Index 34.0-34.9, adult Oct- 5 Yury [address], [place], [place], [address] , [place]. tel:[phone] Referring Provider: Toy Soler [address], [place], [place], [address]. tel:[phone] OFFICE/OUTPA TIENT VISIT, [facility], [address], [place], [address], [place] tel:[phone] [facility] rash (chief complaint) Pulmonary HTN (chief complaint) Contact dermatitis and other eczema due to other specified agentsPulmonary Hypertension, PrimaryMurmurSleep Apnea 5 Yury Naidu. [address], [place], [place], [address] , [place]. [phone] Referring Provider: Toy Soler [address], [place], [place], [address]. tel:[phone] OFFICE/OUTPA TIENT VISIT, [facility], [address], [place], [place], [address], [place] tel:[phone] [facility] HTN (chief complaint) GERD (chief complaint) anxiety (chief complaint) GERDHypertension, UnspecifiedGenerali zed anxiety disorderMuur 4 Yury Naidu. [address], [place], [place], [address] , [place]. [phone] Referring Provider: Toy Soler [address], [place], [address]. tel:[phone] OFFICE/OUTPA TIENT VISIT, [facility], [address], [place], [place], [address], [place] tel:[phone] [facility] HTN (chief complaint) GERD (chief complaint) anxiety (chief complaint) Dietary surveillance and counselingGERDHyper tension, UnspecifiedGenerali zed anxiety disorder 4 Yury Naidu. [address], [place], [place], [address] , [place]. tel:[phone] Referring Provider: Toy Soler [address], [place], [place], [address]. tel:[phone] OFFICE/OUTPA TIENT VISIT, [facility], [address], [place], [place], [address], [place] tel:[phone] [facility] TG (chief complaint) HTN (chief complaint) GERD (chief complaint) sick (chief complaint) Dietary surveillance and counselingHypertens ion, UnspecifiedOther and unspecified hyperlipidemiaGERD 4 Yury Naidu. [address] [facility] [place], [address] , . tel:[phone] Referring Provider: Evangelista Cotton, [address] [facility] [address], [place], [place], [address]. tel:[phone] PREV VISIT, NEW, AGE 40-64 [facility], [address] [place], [place], [address], tel:[phone] [facility] Physical (chief complaint) Routine Medical ExamDietary surveillance and counselingRoutine Medical Exam 4 Yury Naidu. [address] [facility] [place], [address] , [place]. tel:[phone] Family History Family Member Type Diagnosis Age [...] XRAY ordered Referral Referred To: Maulik Obrien [facility] [address] [place] [address] [place] [id number] Ordered: Referrals: Allopathic & Osteopathic Physicians : Surgery. Maulik Obrien. Evaluate and treat ordered Referral Ordered: Physical Therapy (related to Lumbago with sciatica, right side) ordered Referral Ordered: LUMBAR XRAY AP AND LAT ONLY ordered Referral Referred To: Physical Therapy Ordered: Referrals: Physical Therapy ordered Referral Ordered: Maulik Obrien (related to Edema) ordered Referral Referred To: Maulik Obrien [place] [address] [place] [address] [place], [id number] Ordered: Referrals: Maulik Obrien. 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 Patient denies any [...] Relate d to Essential (primary) hypertension Increase physical activity Relat ed to Generalized Anxiety Disorder Prescribed Activity and Exercise Education [...]
--- OUTSIDE RECORDS SUMMARY | 2024-12-27 07:58 | XMS_ITS | Clinical Summary ---
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
--- OUTSIDE RECORDS SUMMARY | 2024-12-27 08:08 | XMS_ITS | Continuity of Care Document ---
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 [address] [place], [place], [address] , [place]. tel:[phone] Referring Provider: Toy Soler [facility] [place], [address]. tel:[phone] PREV VISIT, EST, AGE 40-64 [facility], [address], [place], [place], [address], [place] tel:[phone] [facility] PHysical (chief complaint) Encounter for general adult medical exam w abnormal findingsPain in left fingerEssential (primary) hypertensionGeneral ized anxiety disorderHyperlipide miaAlcohol dependence Fe 9 Yury Naidu. [address], [place], [place], [address] , [place]. [phone] Referring Provider: Toy Soler [address], [place], [place], [address]. tel:[phone] OFFICE/OUTPA TIENT VISIT, [facility], [address], [place], [place], [address], [place] tel:[phone] [facility] HTN (chief complaint) anxiety (chief complaint) anxiety1 (chief complaint) breast1 (chief complaint) Encounter for oth screening for malignant neoplasm of breastGeneralized anxiety disorderEssential (primary) hypertensionEdema 8 Yury Naidu. [address], [place], [place], [address] , [place]. [phone] Referring Provider: Toy Soler [address], [place], [place], [address]. tel:[phone] OFFICE/OUTPA TIENT VISIT, [facility], [address], [place], [place], [address], [place] tel:[phone] [facility] HTN (chief complaint) anxiety1 (chief complaint) back pain1 (chief complaint) sleep apnea1 (chief complaint) EdemaEssential (primary) hypertensionGeneral ized anxiety disorderEncounter for screening for malignant neoplasm of colonTobacco useSleep apnea 8 Yury Taylor [address], [place], [place], [address] , [place]. [phone] Referring Provider: Toy Soler [address], [place], [place], [address]. tel:[phone] OFFICE/OUTPA TIENT VISIT, [facility], [address], [place], [place], [address], [place] tel:[phone] [facility] HTN (chief complaint) edema1 (chief complaint) anxiety1 (chief complaint) back pain1 (chief complaint) EdemaEssential (primary) hypertensionLumbago with sciatica, right sideGeneralized anxiety disorder 8 Yury Naidu. [address], [place], [place], [address] , [place]. tel:[phone] Referring Provider: Toy Soler [facility] A, [place], [place], [address]. tel:[phone] OFFICE/OUTPA TIENT VISIT, [facility], [address], [place], [place], [address], [place] tel:[phone] [facility] HLP (chief complaint) vitamin1 (chief complaint) anxiety1 (chief complaint) HTN (chief complaint) Body mass index (BMI) 34.0-34.9, adultHyperlipidemia Essential (primary) hypertensionEdemaGe neralized anxiety disorder 8 Yury Naidu. [address], [place], [place], [address] , [place]. tel:[phone] Referring Provider: Toy Soler [address], [place], [place], [address]. tel:[phone] OFFICE/OUTPA TIENT VISIT, [facility], [address], [place], [place], [address], [place] tel:[phone] [facility] GERD1 (chief complaint) anxity1 (chief complaint) bee sting (chief complaint) Generalized Anxiety DisorderBee allergy statusGERD without esophagitisHyperlip idemia 8 Yury Naidu. [address], [place], [place], [address] , [place]. tel:[phone] Referring Provider: Toy Soler [address], [place], [place], [address]. tel:[phone] PREV VISIT, EST, AGE 40-64 [facility], [address], [place], [place], [address], [place] tel:[phone] [facility] Physical (chief complaint) Essential (primary) hypertensionGeneral ized Anxiety DisorderEncounter for general adult medical exam w abnormal findingsEdema 7 Yury Naidu. [address], [place], [place], [address] , [place]. [phone] Referring Provider: Toy Soler [address], [place], [place], [address]. tel:[phone] OFFICE/OUTPA TIENT VISIT, [facility], [address], [place], [place], [address], [place] tel:[phone] [facility] sinus (chief complaint) anxity1 (chief complaint) HTN (chief complaint) Generalized Anxiety DisorderAcute upper respiratory infection, unspecifiedEssentia l (primary) hypertensionBody mass index (BMI) 34.0-34.9, adult 7 Yury Naidu. [address], [place], [place], [address] , [place]. [phone] OFFICE/OUTPA TIENT VISIT, [facility], [address], [place], [place], [address], [place] tel:[phone] [facility] HTN (chief complaint) anxiety1 (chief complaint) GERD1 (chief complaint) Essential (primary) hypertensionGERD without esophagitisGenerali zed Anxiety DisorderBee allergy status 7 Yury Naidu. [address], [place], [place], [address] , [place]. [phone] Referring Provider: Toy Soler [address], [place], [place], [address]. tel:[phone] OFFICE/OUTPA TIENT VISIT, [facility], [address], [place], [place], [address], [place] tel:[phone] [facility] HLP (chief complaint) anxity1 (chief complaint) edema1 (chief complaint) HTN (chief complaint) GERD1 (chief complaint) Essential (primary) hypertensionHyperli pidemiaGeneralized Anxiety DisorderGERD without esophagitis 0 7 Yury Naidu. [address], [place], [address] , [place]. tel:[phone] Referring Provider: Toy Soler [address], [place], [place], [address]. tel:[phone] OFFICE/OUTPA TIENT VISIT, [facility], [address], [place], [address], [place] tel:[phone] [facility] anxiety1 (chief complaint) glucose (chief complaint) GERD1 (chief complaint) HLP (chief complaint) HyperlipidemiaHyper glycemiaHypokalemia GERD without esophagitis 7 Yury Naidu. [address], [place], [place], [address] , [place]. tel:[phone] Referring Provider: Evangelista Cotton [address], [place], [place], [address]. tel:[phone] OFFICE/OUTPA TIENT VISIT, [facility], [address], [place], [place], [address], [place] tel:[phone] [facility] calf nodule1 (chief complaint) Lipoma 7 Yury Taylor [address], [place], [place], [address] , [place]. tel:[phone] Referring Provider: Evangelista Cotton [address], [place], [place], [address]. tel:[phone] OFFICE/OUTPA TIENT VISIT, [facility], [address], [place], [address], [place] tel:[phone] [facility] HLP (chief complaint) low K (chief complaint) glucose1 (chief complaint) HyperlipidemiaHypok alemiaHyperglycemia Body mass index (BMI) 33.0-33.9, adult 6 Yury Naidu. [address], [place], [place], [address] , [place]. [phone] Referring Provider: Toy Soler [address], [place], [place], [address]. tel:[phone] PREV VISIT, EST, AGE 40-64 [facility], [address], [place], [place], [address], [place] tel:[phone] [facility] PHysical (chief complaint) Encounter for general adult medical exam w abnormal findingsGERD without esophagitisEssentia l (primary) hypertensionGeneral ized Anxiety Disorder 6 Yury Naidu. [address], [place], [address] , [place]. [phone] Referring Provider: Toy Soler [address], [place], [place], [address]. tel:[phone] OFFICE/OUTPA TIENT VISIT, [facility], [address], [place], [place], [address], [place] tel:[phone] [facility] HTN (chief complaint) GERD1 (chief complaint) anxiety1 (chief complaint) breast (chief complaint) Essential (primary) hypertensionGERD without esophagitisGenerali zed Anxiety DisorderEdema 6 Yury Naidu. [address], [place], [place], [address] , [place]. [phone] Referring Provider: Toy Soler [address], [place], [place], [address]. tel:[phone] OFFICE/OUTPA TIENT VISIT, EST [facility], [address], [place], [address], [place] tel:[phone] [facility] HTN (chief complaint) anxiety1 (chief complaint) GERD1 (chief complaint) Gastro-esophageal reflux disease without esophagitisGenerali zed anxiety disorderEssential (primary) hypertensionEdema 6 Yury Naidu. [address], [place], [address] , [place]. [phone] Referring Provider: Toy Soler [address], [place], [place], [address]. tel:[phone] OFFICE/OUTPA TIENT VISIT, EST [facility], [address], [place], [place], [address], [place] tel:[phone] [facility] HTN (chief complaint) anxiety1 (chief complaint) GERD1 (chief complaint) edema (chief complaint) sleep apnea1 (chief complaint) Essential (primary) hypertensionGeneral ized anxiety disorderSleep apneaGERD without esophagitis Fe 0 6 Yury Naidu. [address], [place], [place], [address] , [place]. [phone] Referring Provider: Toy Soler [facility], [place], [place], [address]. tel:[phone] OFFICE/OUTPA TIENT VISIT, EST [facility], [address], [place], [place], [address], [place] tel:[phone] [facility] HTN1 (chief complaint) hyperglyce toni (chief complaint) HLP1 (chief complaint) macrocytos is1 (chief complaint) Essential (primary) hypertensionHypergl ycemiaOther specified disease of bloodMixed hyperlipidemia 5 Yury Naidu. [address], [place], [place], [address] , [place]. [phone] Referring Provider: Toy Soler [address], [place], [place], [address]. tel:[phone] PREV VISIT, EST, AGE 40-64 [facility], [address], [place], [place], [address], [place] tel:[phone] [facility] Physical (chief complaint) Encntr for general adult medical exam w/o abnormal findings 5 Yury Naidu. [address], [place], [place], [address] , [place]. [phone] Referring Provider: Toy Soler [address], [place], [place], [address]. tel:[phone] OFFICE/OUTPA TIENT VISIT, [facility], [address], [place], [address], [place] tel:[phone] [facility] HTN (chief complaint) sleep apnea (chief complaint) Anxiety (chief complaint) GERD (chief complaint) Dietary surveillance and counselingEdemaUnsp ecified essential hypertensionUnspeci fied sleep apneaEsophageal reflux 5 Yury Naidu. [address], [place], [place], [address] , [place]. tel:[phone] Referring Provider: Toy Soler [address], [place], [place], [address]. tel:[phone] OFFICE/OUTPA TIENT VISIT, [facility], [address], [place], [place], [address], [place] tel:[phone] [facility] Anxiety (chief complaint) sleep apnea (chief complaint) GERD (chief complaint) edema (chief complaint) Dietary surveillance and counselingGERDSleep ApneaGeneralized anxiety disorderEdema 5 Yury Naidu. [address], [place], [place], [address] , [place]. tel:[phone] Referring Provider: Toy Soler [address], [place], [place], [address]. tel:[phone] OFFICE/OUTPA TIENT VISIT, [facility], [address], [place], [place], [address], [place] tel:[phone] [facility] sleep apnea (chief complaint) anxiety (chief complaint) HTN (chief complaint) Dietary surveillance and counselingSleep ApneaHypertension, UnspecifiedGenerali zed anxiety disorderBody Mass Index 34.0-34.9, adult Oct- 5 Yury Ye[address], [place], [place], [address] , [place]. tel:[phone] Referring Provider: Toy Soler [address], [place], [place], [address]. tel:[phone] OFFICE/OUTPA TIENT VISIT, [facility], [address], [place], [place], [address], [place] tel:[phone] [facility] rash (chief complaint) Pulmonary HTN (chief complaint) Contact dermatitis and other eczema due to other specified agentsPulmonary Hypertension, PrimaryMurmurSleep Apnea 5 Yury Naidu. [address], [place], [place], [address] , [place]. [phone] Referring Provider: Toy Soler [address], [place], [place], [address]. tel:[phone] OFFICE/OUTPA TIENT VISIT, [facility], [address], [place], [place], [address], [place] tel:[phone] [facility] HTN (chief complaint) GERD (chief complaint) anxiety (chief complaint) GERDHypertension, UnspecifiedGenerali zed anxiety disorderMuur 4 Yury Naidu. [address], [place], [place], [address] , [place]. [phone] Referring Provider: Toy Soler [address], [place], [place], [address]. tel:[phone] OFFICE/OUTPA TIENT VISIT, [facility], [address], [place], [place], [address], [place] tel:[phone] [facility] HTN (chief complaint) GERD (chief complaint) anxiety (chief complaint) Dietary surveillance and counselingGERDHyper tension, UnspecifiedGenerali zed anxiety disorder 4 Yury Naidu. [address], [place], [address] , [place]. tel:[phone] Referring Provider: Toy Soler [address], [place], [place], [address]. tel:[phone] OFFICE/OUTPA TIENT VISIT, [facility], [address], [place], [place], [address], [place] tel:[phone] [facility] TG (chief complaint) HTN (chief complaint) GERD (chief complaint) sick (chief complaint) Dietary surveillance and counselingHypertens ion, UnspecifiedOther and unspecified hyperlipidemiaGERD 4 Yury Naidu. [address] [facility] [place], [address] , . tel:[phone] Referring Provider: Evangelista Cotton, [address] [facility] A, [place], [place], [address]. tel:[phone] PREV VISIT, NEW, AGE 40-64 [facility], [address], [place], [address], tel:[phone] [facility] Physical (chief complaint) Routine Medical ExamDietary surveillance and counselingRoutine Medical Exam 4 Yury Naidu. [address] [facility] [place], [address] , [place]. tel:[phone] Family History Family Member Type Diagnosis Age [...] XRAY ordered Referral Referred To: Maulik Obrien [facility] [address] [place] [address] [place] [phone] Ordered: Referrals: Allopathic & Osteopathic Physicians : Surgery. Maulik Obrien. Evaluate and treat ordered Referral Ordered: Physical Therapy (related to Lumbago with sciatica, right side) ordered Referral Ordered: LUMBAR XRAY AP AND LAT ONLY ordered Referral Referred To: Physical Therapy Ordered: Referrals: Physical Therapy ordered Referral Ordered: Maulik Obrien (related to Edema) ordered Referral Referred To: Maulik Obrien [place] [address] [place] [address]
[address] [place], [id number] Ordered: Referrals: Maulik Obrien. 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 Patient denies any [...] Diet Related to Dietary Surveillance and Counseling Physical activity counseling Rel ated to Dietary [...]
--- NOTE | 2024-12-27 10:12 | ED.GENADULT ---
HPI - General Adult General Chief complaint: Extremity Injury, Lower Stated complaint: left ankle injury Time Seen by Provider: 12/27/24 08:04 History of Present Illness HPI narrative: Patient is a 59-year-old female presents emergency department chief complaint of left lower extremity pain. The patient reports that she had surgery by Orthopedics and reports that she has had some unsteadiness with her gait since then the patient reports that she fell reports that she has pain in her leg below the knee on the left side. Patient reports that he has pain with ambulation Related Data Home Medications ?Medication ?Instructions ?Recorded ?Confirmed ?Last Taken ?Type amlodipine 10 mg tablet 10 mg PO DAILY 02/27/20 11/15/24 10/30/24 History bupropion HCl 150 mg 24 hr tablet, 150 mg PO DAILY 02/27/20 11/15/24 10/30/24 History extended release buspirone 15 mg tablet 15 mg PO BID 02/27/20 11/15/24 10/30/24 History citalopram 40 mg tablet 40 mg PO DAILY 02/27/20 11/15/24 10/30/24 History furosemide 20 mg tablet 20 mg PO DAILY 02/27/20 11/15/24 10/30/24 History losartan 100 mg tablet 100 mg PO DAILY 02/27/20 11/15/24 10/30/24 History metoprolol succinate 50 mg 50 mg PO DAILY 02/27/20 11/15/24 10/30/24 History tablet,extended release 24 hr spironolactone 50 mg tablet 50 mg PO DAILY 02/27/20 11/15/24 10/30/24 History trazodone 100 mg tablet 100 mg PO HS 02/27/20 11/15/24 10/30/24 History hydroxyzine HCl 25 mg tablet 25 mg PO DAILY 04/17/21 11/15/24 10/30/24 History clonazepam 0.5 mg tablet 0.5 mg PO DAILY PRN Anxiety 12/10/21 11/15/24 10/30/24 History Allergies Allergy/AdvReac Type Severity Reaction Status Date / Time No Known Allergies Allergy Unknown Verified 12/27/24 07:53 Review of Systems Review of Systems: A 10 system review of systems was completed on the patient and is negative except for what is stated in the HPI. Nursing and ancillary documentation was reviewed. [facility] Past Medical History Medical History Right knee DJD Colon cancer screening Odynophagia Dysphagia Lateral meniscus tear Chondromalacia of knee Medial meniscus tear Left knee DJD Left knee pain Chronic cholecystitis Obesity HLD (hyperlipidemia) Depression with anxiety GERD (gastroesophageal reflux disease) Sleep apnea HTN (hypertension) Surgical History Surgical History S/P arthroscopic knee surgery Left knee scope 10/31/24- Dr. 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 HEAD: Normocephalic, atraumatic. EYES: PERRLA and EOMI. ENT: Nares clear, no rhinorrhea or epistaxis. Mucous membranes moist. NECK: Supple. CHEST: Clear to auscultation. No respiratory distress. HEART: Regular rate and rhythm. No murmur heard. Normal peripheral pulses. ABDOMEN: Soft, nontender, nondistended, normal active bowel sounds. EXTREMITIES: Normal range of motion, tenderness to palpation left knee and left ankle, no deformity. No edema. SKIN: Warm, dry, no rash. NEURO: No focal deficits. Alert and oriented x3. PSYCH: Normal mood and affect. Course Vital Signs Vital signs: Vital Signs Temperature 36.8 C 12/27/24 07:56 Pulse Rate 71 12/27/24 07:56 Respiratory Rate 18 12/27/24 07:56 Blood Pressure 167/90 H 12/27/24 07:56 Pulse Oximetry 97 12/27/24 07:56 Oxygen Delivery Room Air 12/27/24 07:56 Temperature 36.8 C 12/27/24 07:56 Pulse Rate 71 12/27/24 07:56 Respiratory Rate 18 12/27/24 07:56 Blood Pressure 167/90 H 12/27/24 07:56 Pulse Oximetry 97 12/27/24 07:56 Oxygen Delivery Room Air 12/27/24 07:56 Medical Decision Making MDM Narrative Medical decision making narrative: Differential diagnosis includes fracture, contusion, sprain Plain film x-rays of the left lower extremity showed evidence of a proximal fibula fracture x-rays of the ankle showed possible fracture with CT scan showing a posterior malleolus fracture Vital Signs Vital Signs: Vital Signs Temperature 36.8 C 12/27/24 07:56 Pulse Rate 71 12/27/24 07:56 Respiratory Rate 18 12/27/24 07:56 Blood Pressure 167/90 H 12/27/24 07:56 Pulse Oximetry 97 12/27/24 07:56 Oxygen Delivery Room Air 12/27/24 07:56 Temperature 36.8 C 12/27/24 07:56 Pulse Rate 71 12/27/24 07:56 Respiratory Rate 18 12/27/24 07:56 Blood Pressure 167/90 H 12/27/24 07:56 Pulse Oximetry 97 12/27/24 07:56 Oxygen Delivery Room Air 12/27/24 07:56 Discharge Plan Discharge Clinical Impression: Ankle fracture, left, Closed fibular fracture Patient Disposition: Home Condition: Stable Instructions: Antibiotic Form, Ankle Fracture (DC), Leg Fracture (ED), Crutch Instructions (ED) Patient Language: Italian Prescriptions: New oxycodone-acetaminophen [Percocet] 5-325 mg tablet 1 tablet PO Q6H PRN (Reason: pain) 3 Days Qty: 12 0RF No Action citalopram 40 mg tablet 40 mg PO DAILY metoprolol succinate 50 mg tablet extended release 24 hr 50 mg PO DAILY trazodone 100 mg tablet 100 mg PO HS Patient Comments: Says takes PRN amlodipine 10 mg tablet 10 mg PO DAILY furosemide 20 mg tablet 20 mg PO DAILY losartan 100 mg tablet 100 mg PO DAILY bupropion HCl 150 mg tablet extended release 24 hr 150 mg PO DAILY hydroxyzine HCl 25 mg tablet 25 mg PO DAILY clonazepam 0.5 mg tablet 0.5 mg PO DAILY PRN (Reason: Anxiety) spironolactone 50 mg tablet 50 mg PO DAILY buspirone 15 mg Tablet 15 mg PO BID omeprazole 40 mg capsule,delayed release(DR/EC) See Rx Instructions .ROUTE .COMPLEX Qty: 60 11RF Dose Instruction: Take 1 capsule by mouth twice daily Rx Instructions: Take 1 capsule by mouth twice daily oxycodone-acetaminophen [Percocet] 5-325 mg tablet 1 tablet PO Q6H PRN (Reason: pain) Qty: 30 0RF Follow-up/Referrals: Faith,SANDRA Webb [Primary Care Provider] - Juan Antonio Gamboa MD [Physician] - Time of Disposition: 10:16
[2024-12-27] MEDS: oxyCODONE/ACETAMINOPHEN (*CRX) 10-325 MG TABLET 1 TAB PO (10:25)
== END 2024-12-27 10:33 | disposition home or self-care (01) ==
PROVIDERS: Emergency Provider Emergency Medicine; PCP Physician Assistant
DX: S82.892A Other fracture of left lower leg, initial encounter for closed fracture (principal); S82.402A Unspecified fracture of shaft of left fibula, initial encounter for closed fracture; W19.XXXA Unspecified fall, initial encounter; E78.5 Hyperlipidemia, unspecified; F41.8 Other specified anxiety disorders; K21.9 Gastro-esophageal reflux disease without esophagitis; I10 Essential (primary) hypertension; Z87.891 Personal history of nicotine dependence
CPT/HCPCS: 29505; 73502; 73562; 73590; 73610; 73700; 99284; A9270

== ENCOUNTER 2025-01-01 09:28 | Outpatient (CLI) | payer OTHER, SELFPAY ==
--- OUTSIDE RECORDS SUMMARY | 2025-01-01 09:45 | XMS_ITS | Clinical Summary ---
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
--- OUTSIDE RECORDS SUMMARY | 2025-01-01 09:45 | XMS_ITS | Continuity of Care Document ---
Author Organization [facility] Address [address] [place] [address] [place] [address] Phone Care Team Providers Care Private Client Advisor Name Role Phone Evangelista Cotton MD Unavailable [...] Diagnoses Date Provider Providers Copied on Encounter [facility], [address] [place], [address], tel:[phone] [facility] No Information Zoey Naidu. [address] [place], [address] , [place]. tel:[phone] Referring Provider: Toy Soler [facility] [place], [address]. tel:[phone] PREV VISIT, EST, AGE 40-64 [facility], [address], [place], [place], [address], [place] tel:[phone] [facility] PHysical (chief complaint) Encounter for general adult medical exam w abnormal findingsPain in left fingerEssential (primary) hypertensionGeneral ized anxiety disorderHyperlipide miaAlcohol dependence Fe 9 Yury Naidu. [address], [place], [place], [address] , [place]. [phone] Referring Provider: Toy Soler [address], [place], [place], [address]. tel:[phone] OFFICE/OUTPA TIENT VISIT, [facility], [address], [place], [place], [address], [place] tel:[phone] [facility] HTN (chief complaint) anxiety (chief complaint) anxiety1 (chief complaint) breast1 (chief complaint) Encounter for oth screening for malignant neoplasm of breastGeneralized anxiety disorderEssential (primary) hypertensionEdema 8 Yury Naidu. [address], [place], [place], [address] , [place]. [phone] Referring Provider: Toy Soler [address], [place], [place], [address]. tel:[phone] OFFICE/OUTPA TIENT VISIT, [facility], [address], [place], [place], [address], [place] tel:[phone] [facility] HTN (chief complaint) anxiety1 (chief complaint) back pain1 (chief complaint) sleep apnea1 (chief complaint) EdemaEssential (primary) hypertensionGeneral ized anxiety disorderEncounter for screening for malignant neoplasm of colonTobacco useSleep apnea 8 Yury Taylor [address], [place], [place], [address] , [place]. [phone] Referring Provider: Toy Soler [address], [place], [place], [address]. tel:[phone] OFFICE/OUTPA TIENT VISIT, [facility], [address], [place], [place], [address], [place] tel:[phone] [facility] HTN (chief complaint) edema1 (chief complaint) anxiety1 (chief complaint) back pain1 (chief complaint) EdemaEssential (primary) hypertensionLumbago with sciatica, right sideGeneralized anxiety disorder 8 Yury Naidu. [address], [place], [place], [address] , [place]. tel:[phone] Referring Provider: Toy Soler [facility] A, [place], [place], [address]. tel:[phone] OFFICE/OUTPA TIENT VISIT, [facility], [address], [place], [place], [address], [place] tel:[phone] [facility] HLP (chief complaint) vitamin1 (chief complaint) anxiety1 (chief complaint) HTN (chief complaint) Body mass index (BMI) 34.0-34.9, adultHyperlipidemia Essential (primary) hypertensionEdemaGe neralized anxiety disorder 8 Yury Naidu. [address], [place], [place], [address] , [place]. tel:[phone] Referring Provider: Toy Soler [address], [place], [place], [address]. tel:[phone] OFFICE/OUTPA TIENT VISIT, [facility], [address], [place], [place], [address], [place] tel:[phone] [facility] GERD1 (chief complaint) anxity1 (chief complaint) bee sting (chief complaint) Generalized Anxiety DisorderBee allergy statusGERD without esophagitisHyperlip idemia 8 Yury Naidu. [address], [place], [place], [address] , [place]. tel:[phone] Referring Provider: Toy Soler [address], [place], [place], [address]. tel:[phone] PREV VISIT, EST, AGE 40-64 [facility], [address], [place], [place], [address], [place] tel:[phone] [facility] Physical (chief complaint) Essential (primary) hypertensionGeneral ized Anxiety DisorderEncounter for general adult medical exam w abnormal findingsEdema 7 Yury Naidu. [address], [place], [place], [address] , [place]. [phone] Referring Provider: Toy Soler [address], [place], [place], [address]. tel:[phone] OFFICE/OUTPA TIENT VISIT, [facility], [address], [place], [place], [address], [place] tel:[phone] [facility] sinus (chief complaint) anxity1 (chief complaint) HTN (chief complaint) Generalized Anxiety DisorderAcute upper respiratory infection, unspecifiedEssentia l (primary) hypertensionBody mass index (BMI) 34.0-34.9, adult 7 Yury Naidu. [address], [place], [place], [address] , [place]. [phone] OFFICE/OUTPA TIENT VISIT, [facility], [address], [place], [place], [address], [place] tel:[phone] [facility] HTN (chief complaint) anxiety1 (chief complaint) GERD1 (chief complaint) Essential (primary) hypertensionGERD without esophagitisGenerali zed Anxiety DisorderBee allergy status 7 Yury Naidu. [address], [place], [place], [address] , [place]. [phone] Referring Provider: Toy Soler [address], [place], [place], [address]. tel:[phone] OFFICE/OUTPA TIENT VISIT, [facility], [address], [place], [place], [address], [place] tel:[phone] [facility] HLP (chief complaint) anxity1 (chief complaint) edema1 (chief complaint) HTN (chief complaint) GERD1 (chief complaint) Essential (primary) hypertensionHyperli pidemiaGeneralized Anxiety DisorderGERD without esophagitis 0 7 Yury Naidu. [address], [place], [place], [address] , [place]. tel:[phone] Referring Provider: Toy Soler [address], [place], [place], [address]. tel:[phone] OFFICE/OUTPA TIENT VISIT, [facility], [address], [place], [place], [address], [place] tel:[phone] [facility] anxiety1 (chief complaint) glucose (chief complaint) GERD1 (chief complaint) HLP (chief complaint) HyperlipidemiaHyper glycemiaHypokalemia GERD without esophagitis 7 Yury Naidu. [address], [place], [place], [address] , [place]. tel:[phone] Referring Provider: Evangelista Cotton [address], [place], [place], [address]. tel:[phone] OFFICE/OUTPA TIENT VISIT, [facility], [address], [place], [place], [address], [place] tel:[phone] [facility] calf nodule1 (chief complaint) Lipoma 7 Yury Taylor [address], [place], [place], [address] , [place]. tel:[phone] Referring Provider: Evangelista Cotton [address], [place], [place], [address]. tel:[phone] OFFICE/OUTPA TIENT VISIT, [facility], [address], [place], [place], [address], [place] tel:[phone] [facility] HLP (chief complaint) low K (chief complaint) glucose1 (chief complaint) HyperlipidemiaHypok alemiaHyperglycemia Body mass index (BMI) 33.0-33.9, adult 6 Yury Naidu. [address], [place], [place], [address] , [place]. [phone] Referring Provider: Toy Soler [address], [place], [place], [address]. tel:[phone] PREV VISIT, EST, AGE 40-64 [facility], [address], [place], [place], [address], [place] tel:[phone] [facility] PHysical (chief complaint) Encounter for general adult medical exam w abnormal findingsGERD without esophagitisEssentia l (primary) hypertensionGeneral ized Anxiety Disorder 6 Yury Naidu. [address], [place], [place], [address] , [place]. [phone] Referring Provider: Toy Soler [address], [place], [place], [address]. tel:[phone] OFFICE/OUTPA TIENT VISIT, [facility], [address], [place], [place], [address], [place] tel:[phone] [facility] HTN (chief complaint) GERD1 (chief complaint) anxiety1 (chief complaint) breast (chief complaint) Essential (primary) hypertensionGERD without esophagitisGenerali zed Anxiety DisorderEdema 6 Yury Naidu. [address], [place], [place], [address] , [place]. [phone] Referring Provider: Toy Soler [address], [place], [place], [address]. tel:[phone] OFFICE/OUTPA TIENT VISIT, EST [facility], [address], [place], [place], [address], [place] tel:[phone] [facility] HTN (chief complaint) anxiety1 (chief complaint) GERD1 (chief complaint) Gastro-esophageal reflux disease without esophagitisGenerali zed anxiety disorderEssential (primary) hypertensionEdema 6 Yury Naidu. [address], [place], [address] , [place]. [phone] Referring Provider: Toy Soler [address], [place], [place], [address]. tel:[phone] OFFICE/OUTPA TIENT VISIT, EST [facility], [address], [place], [place], [address], [place] tel:[phone] [facility] HTN (chief complaint) anxiety1 (chief complaint) GERD1 (chief complaint) edema (chief complaint) sleep apnea1 (chief complaint) Essential (primary) hypertensionGeneral ized anxiety disorderSleep apneaGERD without esophagitis Fe 0 6 Yury Naidu. [address], [place], [place], [address] , [place]. [phone] Referring Provider: Toy Soler [facility] A, [place], [place], [address]. tel:[phone] OFFICE/OUTPA TIENT VISIT, EST [facility], [address], [place], [place], [address], [place] tel:[phone] [facility] HTN1 (chief complaint) hyperglyce toni (chief complaint) HLP1 (chief complaint) macrocytos is1 (chief complaint) Essential (primary) hypertensionHypergl ycemiaOther specified disease of bloodMixed hyperlipidemia 5 Yury Naidu. [address], [place], [place], [address] , [place]. [phone] Referring Provider: Toy Soler [address], [place], [place], [address]. tel:[phone] PREV VISIT, EST, AGE 40-64 [facility], [address], [place], [place], [address], [place] tel:[phone] [facility] Physical (chief complaint) Encntr for general adult medical exam w/o abnormal findings 5 Yury Naidu. [address], [place], [place], [address] , [place]. [phone] Referring Provider: Toy Soler [address], [place], [place], [address]. tel:[phone] OFFICE/OUTPA TIENT VISIT, [facility], [address], [place], [place], [address], [place] tel:[phone] [facility] HTN (chief complaint) sleep apnea (chief complaint) Anxiety (chief complaint) GERD (chief complaint) Dietary surveillance and counselingEdemaUnsp ecified essential hypertensionUnspeci fied sleep apneaEsophageal reflux 5 Yury Naidu. [address], [place], [place], [address] , [place]. tel:[phone] Referring Provider: Toy Soler [address], [place], [place], [address]. tel:[phone] OFFICE/OUTPA TIENT VISIT, [facility], [address], [place], [place], [address], [place] tel:[phone] [facility] Anxiety (chief complaint) sleep apnea (chief complaint) GERD (chief complaint) edema (chief complaint) Dietary surveillance and counselingGERDSleep ApneaGeneralized anxiety disorderEdema 5 Yury Naidu. [address], [place], [place], [address] , [place]. tel:[phone] Referring Provider: Toy Soler [address], [place], [place], [address]. tel:[phone] OFFICE/OUTPA TIENT VISIT, [facility], [address], [place], [place], [address], [place] tel:[phone] [facility] sleep apnea (chief complaint) anxiety (chief complaint) HTN (chief complaint) Dietary surveillance and counselingSleep ApneaHypertension, UnspecifiedGenerali zed anxiety disorderBody Mass Index 34.0-34.9, adult Oct- 5 Yury Ye[address], [place], [place], [address] , [place]. tel:[phone] Referring Provider: Toy Soler [address], [place], [place], [address]. tel:[phone] OFFICE/OUTPA TIENT VISIT, [facility], [address], [place], [place], [address], [place] tel:[phone] [facility] rash (chief complaint) Pulmonary HTN (chief complaint) Contact dermatitis and other eczema due to other specified agentsPulmonary Hypertension, PrimaryMurmurSleep Apnea 5 Yury Naidu. [address], [place], [place], [address] , [place]. [phone] Referring Provider: Toy Soler [address], [place], [place], [address]. tel:[phone] OFFICE/OUTPA TIENT VISIT, [facility], [address], [place], [place], [address], [place] tel:[phone] [facility] HTN (chief complaint) GERD (chief complaint) anxiety (chief complaint) GERDHypertension, UnspecifiedGenerali zed anxiety disorderMuur 4 Yury Naidu. [address], [place], [place], [address] , [place]. [phone] Referring Provider: Toy Soler [address], [place], [place], [address]. tel:[phone] OFFICE/OUTPA TIENT VISIT, [facility], [address], [place], [place], [address], [place] tel:[phone] [facility] HTN (chief complaint) GERD (chief complaint) anxiety (chief complaint) Dietary surveillance and counselingGERDHyper tension, UnspecifiedGenerali zed anxiety disorder 4 Yury Naidu. [address], [place], [place], [address] , [place]. tel:[phone] Referring Provider: Toy Soler [address], [place], [place], [address]. tel:[phone] OFFICE/OUTPA TIENT VISIT, [facility], [address], [place], [place], [address], [place] tel:[phone] [facility] TG (chief complaint) HTN (chief complaint) GERD (chief complaint) sick (chief complaint) Dietary surveillance and counselingHypertens ion, UnspecifiedOther and unspecified hyperlipidemiaGERD 4 Yury Naidu. [address] [facility] [place], [address] , . tel:[phone] Referring Provider: Evangelista Cotton, [address] [facility] A, [place], [place], [address]. tel:[phone] PREV VISIT, NEW, AGE 40-64 [facility], [address] [place], [address], tel:[phone] [facility] Physical (chief complaint) Routine Medical ExamDietary surveillance and counselingRoutine Medical Exam 4 Yury Naidu. [address] [facility] [place], [address] , [place]. tel:[phone] Family History Family Member Type Diagnosis Age [...] XRAY ordered Referral Referred To: Maulik Obrien [facility] [address] [place] [address] [place] [id number] Ordered: Referrals: Allopathic & Osteopathic Physicians : Surgery. Maulik Obiren. Evaluate and treat ordered Referral Ordered: Physical Therapy (related to Lumbago with sciatica, right side) ordered Referral Ordered: LUMBAR XRAY AP AND LAT ONLY ordered Referral Referred To: Physical Therapy Ordered: Referrals: Physical Therapy ordered Referral Ordered: Maulik Obrien (related to Edema) ordered Referral Referred To: Maulik Obrien [place] [address] [place] [address] [place], [id number] Ordered: Referrals: Maulik Obrien. Evaluate and treat [...] since the fall about one week before [place]. Pt never sought medical attention. 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 Patient denies any [...]
[2025-01-01 10:36] LABS: Basophils Percent Auto 0.5 % (0.2-1.2); Eosinophils Absolute Auto 0.1 K/mm3 (0-0.3); Eosinophils Percent Auto 2.3 % (0-4.4); Hematocrit 44.5 % (37.0-47.0); Hemoglobin 14.2 g/dL (12.0-15.0); Immature Granulocyte Absolute 0.03 K/mm3 (0.00-0.031); Immature Granulocyte Percent A 0.5 % (0-0.5); Lymphocytes Absolute Auto 2.06 K/mm3 (0.9-3.2); Lymphocytes Percent Auto 34.2 % (18.3-44.2); Mean Corpuscular HGB Conc 31.9 g/dl (32-36); Mean Corpuscular Hemoglobin 32.2 pg (26-34); Mean Corpuscular Volume 100.9 fl (80-100); Mean Platelet Volume 10.3 fl (7.4-10.4); Monocytes Absolute Auto 0.4 K/mm3 (0.1-0.6); Monocytes Percent Auto 7.1 % (2.6-8.5); Neutrophils Absolute Auto 3.3 K/mm3 (1.3-6.7); Neutrophils Percent Auto 55.4 % (45.5-73.1); Platelet Count Result 315 k/mm3 (150-375); Red Blood Count 4.41 M/mm3 (4.2-5.4); Red Cell Distribution Width 12.8 % (11.5-14.5)
[2025-01-01 10:50] LABS: Alanine Aminotransferase 23 U/L (6-35); Albumin Level 4.1 g/dL (3.5-5.1); Alkaline Phosphatase 55 U/L (38-126); Anion Gap 4 mmol/L (4-12); Aspartate Amino Transferase 30 U/L (14-36); Bilirubin,Total 0.4 mg/dL (0.2-1.3); Blood Urea Nitrogen 20 mg/dL (7-17); CRP < 0.5 mg/dL (<1.0); Calcium 9.5 mg/dL (8.4-10.2); Carbon Dioxide 29 mmol/L (22-30); Chloride 104 mmol/L (98-107); Estimated Glomerular Filt Rate > 60; Glucose 109 mg/dL (65-110); Potassium 4.5 mmol/L (3.4-5.0); Sodium 137 mmol/L (137-145)
== END 2025-01-01 09:29 | disposition home or self-care (01) ==
LOC: ANHSURGERY 09:36
PROVIDERS: PCP Physician Assistant; Visit Provider Orthopaedic Surgery
DX: S82.899A Other fracture of unspecified lower leg, initial encounter for closed fracture (principal); X58.XXXA Exposure to other specified factors, initial encounter
CPT/HCPCS: 36415; 80053; 85025; 86140

== ENCOUNTER 2025-01-03 00:34 | Day surgery (SDC) | payer OTHER, SELFPAY ==
[2024-12-28 13:22] VITALS: BMI 32.6
--- NOTE | 2024-12-28 13:23 | PC.NURSE ---
Report to the Outpatient Waiting Room, entrance under the green pavilion located off [facility], at time _1000_ on date _[id number]_. Planned Procedure Time: _1200_. Time changes happen often and if your time is changed the preop area will call you the afternoon before. - You and your visitor will be asked to self-screen and do not enter if you have any COVID symptoms. Please call surgeon if you need to reschedule. - A mask is optional within the hospital at this time. Patients may have clear liquids (water, carbonated beverages, clear teas, apple juice) until 3 hours prior to surgery with a maximum of 20 ounces. - No food from midnight until time of surgery and no smoking, or chewing tobacco (or any form of nicotine). No chewing gum, candy or mints. Take only the following medications with a SIP of water on the morning of surgery: __Bupropion, Amlodipine, Citalopram, Metoprolol, Buspirone, Hydoxyzine and if needed Oxycodone and or clonazepam.___ DO NOT STOP ANY OF YOUR OTHER PRESCRIPTION MEDICATIONS PRIOR TO SURGERY EXCEPT THE FOLLOWING Hold all vitamins and supplements for 3 days per anesthesiologist. Medications to discontinue per physician Patient says was told by Dr Crow to take the dual action Motrin and to continue Aspirin. Date to take last dose Please no make-up, nail slovak, hairspray, perfume, deodorant, or body powder the day of surgery. No jewelry (including any body piercings) or valuables the day of surgery, leave them at home. Please take a shower or bath the night before, or the morning of, surgery with an antibacterial soap. Wear comfortable, loose fitting clothing. - Jewelry must be removed prior to entering the operating room. Rings and piercings that are not removed may be cut off. - The hospital will not accept responsibility for valuables. - Please leave all valuables, including medications, at home the day of surgery. If you are going home after surgery, a licensed cart driver must drive you home. - NO public transportation without another adult if you receive anesthesia. - We recommend that an adult stay with you for 24 hours following discharge. - We also recommend that you do not drive, make important decision, drink alcoholic beverages, or take any drugs that were not prescribed by your health care provider for at least 24 hours after your discharge time. Follow any additional instructions given to you from your surgeon. Telephone instructions given to __Peggy__and asked if any additional questions and then verbalized understanding. Patient advised to call surgeon office or pre surgery nurse liaison [phone] if any additional questions.
[2025-01-03] VITALS (7 sets, daily range): BP systolic 113–145; BP diastolic 65–87; PULSE 64–92; RESP 12–17; TEMP 36.5; O2SAT 94–100; BMI 34.8
--- NOTE | ~2025-01-03 | XR_ITS ---
XR surgery orthopedic Indication: ORIF left ankle TECHNIQUE: Fluoroscopy used during ORIF left ankle performed by [Mason Crow MD] on 025. 42 seconds of fluoroscopy with 2 fluoroscopic images captured. FINDINGS: Correlate with procedure note. IMPRESSION: Fluoroscopy used during ORIF left ankle. Left ankle in anatomic alignment post reduction with side plate and 2 screws.. Reviewed, dictated and finalized at location A. IMPRESSION: Fluoroscopy used during ORIF left ankle. Left ankle in anatomic ali gnment post reduction with side plate and 2 screws..
--- OUTSIDE RECORDS SUMMARY | 2025-01-03 00:37 | XMS_ITS | Clinical Summary ---
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
--- OUTSIDE RECORDS SUMMARY | 2025-01-03 00:37 | XMS_ITS | Continuity of Care Document ---
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 [address], [place], [address] , [place]. tel:[phone] Referring Provider: Toy Soler[place], [place], [address]. tel:[phone] PREV VISIT, EST, AGE 40-64 [facility], [address], [place], [place], [address], [place] tel:[phone] [facility] PHysical (chief complaint) Encounter for general adult medical exam w abnormal findingsPain in left fingerEssential (primary) hypertensionGeneral ized anxiety disorderHyperlipide miaAlcohol dependence 9 Yury Naidu. [address], [place], [place], [address] , [place]. [phone] Referring Provider: Toy Sol[address], [place], [place], [address]. tel:[phone] OFFICE/OUTPA TIENT VISIT, [facility], [address], [place], [place], [address], [place] tel:[phone] [facility] HTN (chief complaint) anxiety (chief complaint) anxiety1 (chief complaint) breast1 (chief complaint) Encounter for oth screening for malignant neoplasm of breastGeneralized anxiety disorderEssential (primary) hypertensionEdema 8 Yury Naidu. [address], [place], [place], [address] , [place]. [phone] Referring Provider: Toy Soler [address], [place], [place], [address]. tel:[phone] OFFICE/OUTPA TIENT VISIT, [facility], [address], [place], [place], [address], [place] tel:[phone] [facility] HTN (chief complaint) anxiety1 (chief complaint) back pain1 (chief complaint) sleep apnea1 (chief complaint) EdemaEssential (primary) hypertensionGeneral ized anxiety disorderEncounter for screening for malignant neoplasm of colonTobacco useSleep apnea 8 Yury Taylor [address], [place], [place], [address] , [place]. tel:[phone] Referring Provider: Toy Sol[address], [place], [place], [address]. tel:[phone] OFFICE/OUTPA TIENT VISIT, [facility], [address], [place], [place], [address], [place] tel:[phone] [facility] HTN (chief complaint) edema1 (chief complaint) anxiety1 (chief complaint) back pain1 (chief complaint) EdemaEssential (primary) hypertensionLumbago with sciatica, right sideGeneralized anxiety disorder 8 Yury Naidu. [address], [place], [place], [address] , [place]. tel:[phone] Referring Provider: Toy Soler [address] [facility] [address], [place], [place], [address]. tel:[phone] OFFICE/OUTPA TIENT VISIT, [facility], [address], [place], [place], [address], [place] tel:[phone] [facility] HLP (chief complaint) vitamin1 (chief complaint) anxiety1 (chief complaint) HTN (chief complaint) Body mass index (BMI) 34.0-34.9, adultHyperlipidemia Essential (primary) hypertensionEdemaGe neralized anxiety disorder 8 Yury Naidu. [address], [place], [place], [address] , [place]. tel:[phone] Referring Provider: Toy Sol[address], [place], [place], [address]. tel:[phone] OFFICE/OUTPA TIENT VISIT, [facility], [address], [place], [address], [place] tel:[phone] [facility] GERD1 (chief complaint) anxity1 (chief complaint) bee sting (chief complaint) Generalized Anxiety DisorderBee allergy statusGERD without esophagitisHyperlip idemia 8 Yury Naidu. [address], [place], [place], [address] , [place]. tel:[phone] Referring Provider: Toy Sol[address], [place], [place], [address]. tel:[phone] PREV VISIT, EST, AGE 40-64 [facility], [address], [place], [place], [address], [place] tel:[phone] [facility] Physical (chief complaint) Essential (primary) hypertensionGeneral ized Anxiety DisorderEncounter for general adult medical exam w abnormal findingsEdema 7 Yury Naidu. [address], [place], [address] , [place]. [phone] Referring Provider: Toy Sol[address], [place], [place], [address]. tel:[phone] OFFICE/OUTPA TIENT VISIT, [facility], [address], [place], [place], [address], [place] [phone] [facility] sinus (chief complaint) anxity1 (chief complaint) HTN (chief complaint) Generalized Anxiety DisorderAcute upper respiratory infection, unspecifiedEssentia l (primary) hypertensionBody mass index (BMI) 34.0-34.9, adult 7 Yury Naidu. [address], [place], [place], [address] , [place]. [phone] OFFICE/OUTPA TIENT VISIT, [facility], [address], [place], [place], [address], [place] tel:[phone] [facility] HTN (chief complaint) anxiety1 (chief complaint) GERD1 (chief complaint) Essential (primary) hypertensionGERD without esophagitisGenerali zed Anxiety DisorderBee allergy status 7 Yury Naidu. [address], [place], [address] , [place]. [phone] Referring Provider: Toy Sol[address], [place], [place], [address]. tel:[phone] OFFICE/OUTPA TIENT VISIT, [facility], [address], [place], [address], [place] tel:[phone] [facility] HLP (chief complaint) anxity1 (chief complaint) edema1 (chief complaint) HTN (chief complaint) GERD1 (chief complaint) Essential (primary) hypertensionHyperli pidemiaGeneralized Anxiety DisorderGERD without esophagitis 7 Yury Naidu. [address], [place], [place], [address] , [place]. tel:[phone] Referring Provider: Toy Sol[address], [place], [place], [address]. tel:[phone] OFFICE/OUTPA TIENT VISIT, [facility], [address], [place], [place], [address], [place] tel:[phone] [facility] anxiety1 (chief complaint) glucose (chief complaint) GERD1 (chief complaint) HLP (chief complaint) HyperlipidemiaHyper glycemiaHypokalemia GERD without esophagitis 7 Yury Naidu. [address], [place], [address] , [place]. tel:[phone] Referring Provider: Evangelista Cotton, [address], [place], [place], [address]. tel:[phone] OFFICE/OUTPA TIENT VISIT, [facility], [address], [place], [address], [place] tel:[phone] [facility] calf nodule1 (chief complaint) Lipoma 7 Yury Naidu. [address], [place], [address] , [place]. tel:[phone] Referring Provider: Evangelista Cotton [address], [place], [place], [address]. tel:[phone] OFFICE/OUTPA TIENT VISIT, [facility], [address], [place], [place], [address], [place] tel:[phone] [facility] HLP (chief complaint) low K (chief complaint) glucose1 (chief complaint) HyperlipidemiaHypok alemiaHyperglycemia Body mass index (BMI) 33.0-33.9, adult 6 Yury Naidu. [address], [place], [place], [address] , [place]. [phone] Referring Provider: Toy Sol[address], [place], [place], [address]. tel:[phone] PREV VISIT, EST, AGE 40-64 [facility], [address], [place], [place], [address], [place] tel:[phone] [facility] PHysical (chief complaint) Encounter for general adult medical exam w abnormal findingsGERD without esophagitisEssentia l (primary) hypertensionGeneral ized Anxiety Disorder 6 Yury Naidu. [address], [place], [address] , [place]. [phone] Referring Provider: Toy Sol[address], [place], [place], [address]. tel:[phone] OFFICE/OUTPA TIENT VISIT, EST [facility], [address], [place], [place], [address], [place] tel:[phone] [facility] HTN (chief complaint) GERD1 (chief complaint) anxiety1 (chief complaint) breast (chief complaint) Essential (primary) hypertensionGERD without esophagitisGenerali zed Anxiety DisorderEdema 6 Yury Naidu. [address], [place], [place], [address] , [place]. [phone] Referring Provider: [address], [place], [place], [address]. tel:[phone] OFFICE/OUTPA TIENT VISIT, EST [facility], [address], [place], [address], [place] tel:[phone] [facility] HTN (chief complaint) anxiety1 (chief complaint) GERD1 (chief complaint) Gastro-esophageal reflux disease without esophagitisGenerali zed anxiety disorderEssential (primary) hypertensionEdema 6 Yury Taylor [address], [place], [place], [address] , [place]. [phone] Referring Provider: Toy Sol[address], [place], [place], [address]. tel:[phone] OFFICE/OUTPA TIENT VISIT, EST [facility], [address], [place], [address], [place] tel:[phone] [facility] HTN (chief complaint) anxiety1 (chief complaint) GERD1 (chief complaint) edema (chief complaint) sleep apnea1 (chief complaint) Essential (primary) hypertensionGeneral ized anxiety disorderSleep apneaGERD without esophagitis Fe 6 Yury Naidu. [address], [place], [place], [address] , [place]. [phone] Referring Provider: Toy Soler [facility], [place], [place], [address]. tel:[phone] OFFICE/OUTPA TIENT VISIT, [facility], [address], [place], [place], [address], [place] tel:[phone] [facility] HTN1 (chief complaint) hyperglyce toni (chief complaint) HLP1 (chief complaint) macrocytos is1 (chief complaint) Essential (primary) hypertensionHypergl ycemiaOther specified disease of bloodMixed hyperlipidemia 5 Yury Naidu. [address], [place], [address] , [place]. [phone] Referring Provider: Toy Sol[address], [place], [place], [address]. tel:[phone] PREV VISIT, EST, AGE 40-64 [facility], [address], [place], [place], [address], [place] tel:[phone] [facility] Physical (chief complaint) Encntr for general adult medical exam w/o abnormal findings 5 Yury Naidu. [address], [place], [address] , [place]. [phone] Referring Provider: Toy Sol[address], [place], [place], [address]. tel:[phone] OFFICE/OUTPA TIENT VISIT, [facility], [address], [place], [place], [address], [place] tel:[phone] [facility] HTN (chief complaint) sleep apnea (chief complaint) Anxiety (chief complaint) GERD (chief complaint) Dietary surveillance and counselingEdemaUnsp ecified essential hypertensionUnspeci fied sleep apneaEsophageal reflux 5 Yury Naidu. [address], [place], [place], [address] , [place]. tel:[phone] Referring Provider: [address], [place], [place], [address]. tel:[phone] OFFICE/OUTPA TIENT VISIT, [facility], [address], [place], [place], [address], [place] tel:[phone] [facility] Anxiety (chief complaint) sleep apnea (chief complaint) GERD (chief complaint) edema (chief complaint) Dietary surveillance and counselingGERDSleep ApneaGeneralized anxiety disorderEdema 5 Yury Naidu. [address], [place], [place], [address] , [place]. tel:[phone] Referring Provider: Toy Sol[address], [place], [place], [address]. tel:[phone] OFFICE/OUTPA TIENT VISIT, [facility], [address], [place], [place], [address], [place] tel:[phone] [facility] sleep apnea (chief complaint) anxiety (chief complaint) HTN (chief complaint) Dietary surveillance and counselingSleep ApneaHypertension, UnspecifiedGenerali zed anxiety disorderBody Mass Index 34.0-34.9, adult Oct- 5 Yury Taylor [address], [place], [place], [address] , [place]. tel:[phone] Referring Provider: Toy [address], [place], [place], [address]. tel:[phone] OFFICE/OUTPA TIENT VISIT, [facility], [address], [place], [place], [address], [place] tel:[phone] [facility] rash (chief complaint) Pulmonary HTN (chief complaint) Contact dermatitis and other eczema due to other specified agentsPulmonary Hypertension, PrimaryMurmurSleep Apnea 5 Yury Naidu. [address], [place], [address] , [place]. [phone] Referring Provider: Toy [address], [place], [place], [address]. tel:[phone] OFFICE/OUTPA TIENT VISIT, [facility], [address], [place], [place], [address], [place] tel:[phone] [facility] HTN (chief complaint) GERD (chief complaint) anxiety (chief complaint) GERDHypertension, UnspecifiedGenerali zed anxiety disorderMuur 4 Yury Naidu. [address], [place], [place], [address] , [place]. [phone] Referring Provider: [address], [place], [place], [address]. tel:[phone] OFFICE/OUTPA TIENT VISIT, [facility], [address], [address], [place] tel:[phone] [facility] HTN (chief complaint) GERD (chief complaint) anxiety (chief complaint) Dietary surveillance and counselingGERDHyper tension, UnspecifiedGenerali zed anxiety disorder 4 Yury Naidu. [address], [place], [place], [address] , [place]. tel:[phone] Referring Provider: [address], [place], [place], [address]. tel:[phone] OFFICE/OUTPA TIENT VISIT, [facility], [address], [place], [place], [address], [place] tel:[phone] [facility] TG (chief complaint) HTN (chief complaint) GERD (chief complaint) sick (chief complaint) Dietary surveillance and counselingHypertens ion, UnspecifiedOther and unspecified hyperlipidemiaGERD 4 Yury Naidu. [address] [facility] [place], [address] , . tel:[phone] Referring Provider: Evangelista Cotton, [address], [place], [place], [address]. tel:[phone] PREV VISIT, NEW, AGE 40-64 [facility], [address], [address], tel:[phone] [facility] Physical (chief complaint) Routine Medical ExamDietary surveillance and counselingRoutine Medical Exam 4 Yury Naidu. [address], [facility] [place], [address] , [place]. tel:[phone] Family History Family Member Type Diagnosis Age [...] XRAY ordered Referral Referred To: Maulik Obrien [facility] [address] [place] [address]
#1 DARRELL Harris [id number] Ordered: Referrals: Allopathic & Osteopathic Physicians : Surgery. Maulik Obrien. Evaluate and treat ordered Referral Ordered: Physical Therapy (related to Lumbago with sciatica, right side) ordered Referral Ordered: LUMBAR XRAY AP AND LAT ONLY ordered Referral Referred To: Physical Therapy Ordered: Referrals: Physical Therapy ordered Referral Ordered: Maulik Obrien (related to Edema) ordered Referral Referred To: Maulik Obrien [place] [address] [place] [address]
#1 DAR[place] Harris, [id number] Ordered: Referrals: Maulik Obrien. 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 Patient denies any [...] diet. Relate d to Essential (primary) hypertension Follow a low sodium diet. Relate d to Essential (primary) hypertension Increase activity. Related to Es sential (primary) hypertension Prescribed Diet Educ ation/Lifestyle Education Regarding Diet Related to Dietary Surveillance and Counseling Prescribed Activity and Exercise Education Related to Dietary Surveillance and Counseling Increase [...] Dietary Surveillance and Counseling Prescribed Diet Educ [id number]|2025-01-03 12:26:00|2025-01-03 12:26:00|P.HPUP_ITS|UNGACT[employer]|Health Information Management|[id number]|"History and Physical Update Update Date/Time: 01/03/25 12:26 History and Physical has been reviewed, including an updated exam of the patient. There are NO changes in the patient's condition. Risks, benefits, and alternatives have been discussed and questions answered. Patient agrees to proceed with procedure. Left ankle open reduction with internal fixation. "
[2025-01-03] MEDS: ACETAMINOPHEN 500 MG TABLET 1000 MG PO (10:50)
[2025-01-03] MEDS: LACTATED RINGERS 1,000 ML 30 ML IV CONT (10:55)
[2025-01-03] MEDS: KETOROLAC 15 MG/ML VIAL (*BKC) IV PUSH (10:55)
--- NOTE | 2025-01-03 12:26 | WPDHPUPDATE1 ---
History and Physical Update Update Date/Time: 01/03/25 12:26 History and Physical has been reviewed, including an updated exam of the patient. There are NO changes in the patient's condition. Risks, benefits, and alternatives have been discussed and questions answered. Patient agrees to proceed with procedure. Left ankle open reduction with internal fixation.
--- NOTE | 2025-01-03 12:28 | P.PNAN_ITS ---
Anes - Initial Pre Proc Eval Procedure: Operation Date: 01/03/25 12:00 Proposed Procedures p Open Reduction Internal Fixation Left Ankle Fracture - Mason Crow MD Date/Time: 01/03/25 12:28 Surgeon: Mason Crow MD Pre Op Diagnosis: left ankle fracture Patient Data Age: 59 Gender: F Height: 1.63 m Weight: 92 kg Allergies Allergy/AdvReac Type Severity Reaction Status Date / Time No Known Allergies Allergy Unknown Verified 01/03/25 12:07 Home Medications Medication Instructions Recorded Confirmed Type amlodipine 10 mg tablet 10 mg PO DAILY 02/27/20 12/28/24 History bupropion HCl 150 mg 24 hr tablet, 150 mg PO DAILY 02/27/20 12/28/24 History extended release buspirone 15 mg tablet 15 mg PO BID 02/27/20 12/28/24 History citalopram 40 mg tablet 40 mg PO DAILY 02/27/20 12/28/24 History furosemide 20 mg tablet 20 mg PO DAILY 02/27/20 12/28/24 History losartan 100 mg tablet 100 mg PO DAILY 02/27/20 12/28/24 History metoprolol succinate 50 mg 50 mg PO DAILY 02/27/20 12/28/24 History tablet,extended release 24 hr spironolactone 50 mg tablet 50 mg PO DAILY 02/27/20 12/28/24 History trazodone 100 mg tablet 100 mg PO HS 02/27/20 12/28/24 History hydroxyzine HCl 25 mg tablet 25 mg PO DAILY 04/17/21 12/28/24 History clonazepam 0.5 mg tablet 0.5 mg PO DAILY PRN Anxiety 12/10/21 12/28/24 History omeprazole 40 mg capsule,delayed See Rx Instructions .Route 03/06/24 12/28/24 Rx release .COMPLEX #60 caps oxycodone-acetaminophen 5 mg-325 1 tablet PO Q6H PRN pain 3 days 12/27/24 12/28/24 Rx mg tablet (Percocet) #12 tabs acetaminophen 500 mg tablet 1,000 mg PO Q6H PRN pain 12/28/24 12/28/24 History aspirin 81 mg tablet 81 mg PO DAILY 12/28/24 12/28/24 History ibuprofen 125 mg-acetaminophen 250 2 tablet PO Q8H PRN pain 12/28/24 12/28/24 History mg tablet (Advil Dual Action) Patient hx anesthesia problems: none Family hx anesthesia problems: none Results Review: All pre-operative results and documents have been reviewed as part of the pre- operative evaluation. [facility] Past Medical History Medical History Right knee DJD Colon cancer screening Odynophagia Dysphagia Lateral meniscus tear Chondromalacia of knee Medial meniscus tear Left knee DJD Left knee pain Chronic cholecystitis Obesity HLD (hyperlipidemia) Depression with anxiety GERD (gastroesophageal reflux disease) Sleep apnea HTN (hypertension) Surgical History Surgical History S/P arthroscopic knee surgery Left knee scope 10/31/24- Dr. 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 Informed Consent: The patient's anesthetic plan and its attendant risks and benefits were discussed with the patient/family/POA. Questions were solicited and answers provided to the satisfaction of the patient/family/POA.
--- NOTE | 2025-01-03 12:47 | PM.IMHP ---
H&P: HPI History of Present Illness Date/Time: 01/03/25 12:47 Chief Complaint: 59 yr old female with a Maissoneuve Injury to the Left ankle after twisting ankle trying to get up some stairs at home. [facility] Past Medical History Medical History Right knee DJD Colon cancer screening Odynophagia Dysphagia Lateral meniscus tear Chondromalacia of knee Medial meniscus tear Left knee DJD Left knee pain Chronic cholecystitis Obesity HLD (hyperlipidemia) Depression with anxiety GERD (gastroesophageal reflux disease) Sleep apnea HTN (hypertension) Surgical History Surgical History S/P arthroscopic knee surgery Left knee scope 10/31/24- Dr. 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 Gender identity (if verbalized by the patient): Female Spiritual care concerns: No Meds Home Medications and Allergies Home Medications Medication Instructions Recorded Confirmed Type amlodipine 10 mg tablet 10 mg PO DAILY 02/27/20 12/28/24 History bupropion HCl 150 mg 24 hr tablet, 150 mg PO DAILY 02/27/20 12/28/24 History extended release buspirone 15 mg tablet 15 mg PO BID 02/27/20 12/28/24 History citalopram 40 mg tablet 40 mg PO DAILY 02/27/20 12/28/24 History furosemide 20 mg tablet 20 mg PO DAILY 02/27/20 12/28/24 History losartan 100 mg tablet 100 mg PO DAILY 02/27/20 12/28/24 History metoprolol succinate 50 mg 50 mg PO DAILY 02/27/20 12/28/24 History tablet,extended release 24 hr spironolactone 50 mg tablet 50 mg PO DAILY 02/27/20 12/28/24 History trazodone 100 mg tablet 100 mg PO HS 02/27/20 12/28/24 History hydroxyzine HCl 25 mg tablet 25 mg PO DAILY 04/17/21 12/28/24 History clonazepam 0.5 mg tablet 0.5 mg PO DAILY PRN Anxiety 12/10/21 12/28/24 History omeprazole 40 mg capsule,delayed See Rx Instructions .Route 03/06/24 12/28/24 Rx release .COMPLEX #60 caps oxycodone-acetaminophen 5 mg-325 1 tablet PO Q6H PRN pain 3 days 12/27/24 12/28/24 Rx mg tablet (Percocet) #12 tabs acetaminophen 500 mg tablet 1,000 mg PO Q6H PRN pain 12/28/24 12/28/24 History aspirin 81 mg tablet 81 mg PO DAILY 12/28/24 12/28/24 History ibuprofen 125 mg-acetaminophen 250 2 tablet PO Q8H PRN pain 12/28/24 12/28/24 History mg tablet (Advil Dual Action) Allergies Allergy/AdvReac Type Severity Reaction Status Date / Time No Known Allergies Allergy Unknown Verified 01/03/25 12:07 Assessment and Plan Assessment and plan (1) Maisonneuve fracture of fibula: Code(s): S82.863A - Displaced Maisonneuve's fracture of unspecified leg, initial encounter for closed fracture Status: Acute Plan Left Ankle Maissoneuve Injury. Plan screw fixation with lateral plate.
[2025-01-03] MEDS: ceFAZolin 2 GM/D5W 50 ML 2 GM/50 ML BAG IVPB (13:05)
[2025-01-03] MEDS: LIDO 1%/EPINEPHRINE 1:100,000 20 ML VIAL INFILTRATE (13:51)
[2025-01-03] MEDS: fentaNYL CITRATE INJ (*CRX) 100 MCG/2 ML VIAL 25 MCG IV PUSH ×2 (14:40→15:33)
--- NOTE | 2025-01-03 14:44 | W.PM.PROC2 ---
Procedure Note - Detailed Date of Procedure 01/03/25 Pre-op Diagnosis left ankle fracture, syndesmotic injury with medial and posterior malleolus fracture Post-op Diagnosis Same Procedure Performed Open reduction internal fixation of left ankle syndesmotic fracture Surgeon Mason Crow MD Anesthesia General Indications left ankle syndesmotic with proximal fibular fracture component as as posterior medial malleolus nondisplaced Description of Procedure after obtaining consent regards to the risks benefits alternatives and complications a left ankle syndesmotic fixation patient was then brought to the operating room placed supine position at which time she underwent general seizure is Tourniquet not used for the case Fluoroscopy was used to verify reduction as the distal tib-fib joint was this was done a lateral incision was made dissection carried down on the fibula identified. A 3 hole 1/3 tubular plate was placed over the lateral aspect of the left ankle in the area of the fibula and 2 syndesmotic screws were placed measuring approximately 15 mm each proximal to the distal tib-fib joint. Reduction was verified both on the AP view as well as a lateral view with fluoroscopy view. I then injected with a lidocaine and Marcaine into the incision site and closed the skin using 2 Vicryl suture and then Steri-Strips were placed. Estimated Blood Loss 10 Tourniquet Time Total Tourniquet Time: 0 Complications No immediate complications Condition Stable Disposition PACU
[2025-01-03] MEDS: oxyCODONE HCL (*CRX) 5 MG TAB IR PO (15:06)
== END 2025-01-03 16:05 | disposition home or self-care (01) ==
PROVIDERS: PCP Physician Assistant; Visit Provider Orthopaedic Surgery
PROC: (CPT 27829; principal; 2025-01-03 12:00)
DX: S82.862A Displaced Maisonneuve's fracture of left leg, initial encounter for closed fracture (principal); M17.0 Bilateral primary osteoarthritis of knee; E78.5 Hyperlipidemia, unspecified; K21.9 Gastro-esophageal reflux disease without esophagitis; I10 Essential (primary) hypertension; K81.1 Chronic cholecystitis; F41.8 Other specified anxiety disorders; G47.30 Sleep apnea, unspecified; F17.290 Nicotine dependence, other tobacco product, uncomplicated; X50.9XXA Other and unspecified overexertion or strenuous movements or postures, initial encounter; E66.9 Obesity, unspecified; Z68.34 Body mass index [BMI] 34.0-34.9, adult; Z79.891 Long term (current) use of opiate analgesic; Z79.82 Long term (current) use of aspirin; Z79.1 Long term (current) use of non-steroidal anti-inflammatories (NSAID); Z98.890 Other specified postprocedural states; Z90.49 Acquired absence of other specified parts of digestive tract; Z82.49 Family history of ischemic heart disease and other diseases of the circulatory system
CPT/HCPCS: 27829; 99199; A9270; C1713; J0690; J1100; J1885; J2003; J2004; J2250; J2405; J2704; J3010; J7120

== ENCOUNTER 2025-08-15 10:00 | Emergency (ER) | payer OTHER, SELFPAY ==
--- OUTSIDE RECORDS SUMMARY | 2025-08-15 10:02 | XMS_ITS | Clinical Summary ---
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 Gender Identity Not on file Sexual Orientation Not on file Plan of Treatment Health Maintenance Due Date Last Done Comments Hepatitis C Virus (HCV) Screening 1964 TdaP Immunization 1964 Pap Smear 1985 Cervical Cancer Screening (CCS) 1994 HPV/Cotest 1994 Cologuard 2009 Colonoscopy 2009 Colorectal Cancer Screening 2009 Immunochemical Fecal Occult Blood 2009 Pneumococcal Immunization (5 0+ years) (1 of 1 - PCV) 2014 Zoster Immunization (1 of 2) 2014 Influenza Immunization (#1) 04/22/20250 08/2019, 05/06/2019 SARS-COV-2 Immunization ( season) 2025 Respiratory Syncytial Virus (RSV) Immunization (Adult) (1 - 1-dose 75+ series) 2039 Hepatitis B Immunization Aged Out No longer eligible based on patient's age to complete this topic Human Papillomavirus (HPV) Immunization Aged Out No longer eligible b ased on patient's age to complete this topic Meningococcal Immunization (ACWY) Aged Out No longer eligible b ased on patient's age to complete this topic Rotavirus Immunization Aged Out No lo nger eligible based on patient's age to complete this topic
[2025-08-15 10:16] VITALS: BP 153/101; PULSE 68; RESP 18; TEMP 36.2; O2SAT 99
[2025-08-15 10:49] VITALS: BP 163/97; PULSE 64; RESP 20; O2SAT 98
[2025-08-15 10:51] LABS: Add Urine Microscopic? YES; Appearance Urine Cloudy (Clear); Glucose Urine UA Negative (Negative); Leukocyte Esterase Ur 2+ LEU/UL (Negative); Nitrate Urine Positive (Negative); Specific Grav Ur 1.028 (1.001-1.035)
[2025-08-15 12:27] LABS: Hematocrit 45.1 % (37.0-47.0); Hemoglobin 16.3 g/dL (12.0-15.0); Immature Granulocyte Percent A 0.4 % (0-0.5); Lymphocytes Absolute Auto 1.96 K/mm3 (0.9-3.2); Mean Corpuscular HGB Conc 36.1 g/dl (32-36); Mean Corpuscular Hemoglobin 33.7 pg (26-34); Mean Corpuscular Volume 93.4 fl (80-100); Nucleated Red Blood Cells Absolute Auto 0.000 K/mm3 (0.0-0.012); Nucleated Red Blood Cells Perc 0.0 % (0.0-0.2); Platelet Count Result 337 k/mm3 (150-375); Red Blood Count 4.83 M/mm3 (4.2-5.4); White Blood Count 9.0 K/mm3 (4.5-10.0)
[2025-08-15] MEDS: ONDANSETRON INJ 4 MG/2 ML VIAL IV PUSH (12:32)
[2025-08-15] MEDS: SODIUM CHLORIDE 0.9% IV 1,000 ML 999 ML IV CONT (12:32)
[2025-08-15] MEDS: MORPHINE SULFATE (*CRX) 4 MG/ML INJ IV PUSH (12:32)
[2025-08-15 12:33] VITALS: BP 152/91; PULSE 68; RESP 16; O2SAT 99
[2025-08-15 12:40] LABS: Alanine Aminotransferase 52 U/L (6-35); Albumin Level 4.0 g/dL (3.5-5.1); Alkaline Phosphatase 104 U/L (38-126); Anion Gap 9 mmol/L (4-12); Aspartate Amino Transferase 93 U/L (14-36); Bilirubin,Total 1.2 mg/dL (0.2-1.3); Blood Urea Nitrogen 13 mg/dL (7-17); Calcium 8.7 mg/dL (8.4-10.2); Carbon Dioxide 24 mmol/L (22-30); Chloride 104 mmol/L (98-107); Estimated CRCL calculation 75 ml/min; Estimated Glomerular Filt Rate > 60; Glucose 83 mg/dL (65-110); Potassium 3.4 mmol/L (3.4-5.0); Sodium 137 mmol/L (137-145); Total Protein 7.0 g/dL (6.3-8.2)
[2025-08-15] MEDS: cefTRIAXone 1 GM in SODIUM CHLORIDE 0.9% IV 50 ML 100 ML IVPB (13:28)
[2025-08-15 13:55] VITALS: BP 175/87; PULSE 75; RESP 16; O2SAT 98
--- NOTE | 2025-08-15 14:20 | ED.GENADULT ---
HPI - General Adult General Chief complaint: Urogenital-Female Stated complaint: right flank pain Time Seen by Provider: 08/15/25 10:49 History of Present Illness HPI narrative: Patient is a 60-year-old female who presents ER with right-sided flank pain. Associated with urinary frequency and urgency as well as dysuria. She has been having sweats and subjective fever. Mild abdominal discomfort and nausea. Concerned she may have UTI or kidney infection. No history kidney stones. Related Data Home Medications ?Medication ?Instructions ?Recorded ?Confirmed ?Last Taken ?Type amlodipine 10 mg tablet 10 mg PO DAILY 02/27/20 08/12/25 10/30/24 History bupropion HCl 150 mg 24 hr tablet, 150 mg PO DAILY 02/27/20 08/12/25 10/30/24 History extended release buspirone 15 mg tablet 15 mg PO BID 02/27/20 08/12/25 10/30/24 History citalopram 40 mg tablet 40 mg PO DAILY 02/27/20 08/12/25 10/30/24 History furosemide 20 mg tablet 20 mg PO DAILY 02/27/20 08/12/25 10/30/24 History losartan 100 mg tablet 100 mg PO DAILY 02/27/20 08/12/25 10/30/24 History metoprolol succinate 50 mg 50 mg PO DAILY 02/27/20 08/12/25 10/30/24 History tablet,extended release 24 hr spironolactone 50 mg tablet 50 mg PO DAILY 02/27/20 08/12/25 10/30/24 History trazodone 100 mg tablet 100 mg PO HS 02/27/20 08/12/25 10/30/24 History hydroxyzine HCl 25 mg tablet 25 mg PO DAILY 04/17/21 08/12/25 10/30/24 History clonazepam 0.5 mg tablet 0.5 mg PO DAILY PRN Anxiety 12/10/21 08/12/25 10/30/24 History acetaminophen 500 mg tablet 1,000 mg PO Q6H PRN pain 12/28/24 08/12/25 Unknown History aspirin 81 mg tablet 81 mg PO DAILY 12/28/24 08/12/25 Unknown History famotidine 20 mg tablet (Acid 20 mg PO DAILY 08/12/25 08/12/25 Unknown History Controller) fenofibrate 160 mg tablet 160 mg PO DAILY 08/12/25 08/12/25 Unknown History Allergies Allergy/AdvReac Type Severity Reaction Status Date / Time No Known Allergies Allergy Unknown Verified 08/15/25 10:18 Review of Systems Review of Systems: All systems reviewed & are unremarkable except as noted in HPI and below Constitutional: Constitutional: Reports no additional constitutional complaints Cardiovascular: Cardiovascular: Reports no additional cardiovascular complaints Respiratory: Respiratory: Reports no additional respiratory complaints Gastrointestinal: Gastrointestinal: Reports no additional gastrointestinal complaints Genitourinary: Genitourinary: Reports no additional female genitourinary complaints [facility] Past Medical History Medical History Right knee DJD Colon cancer screening Odynophagia Dysphagia Lateral meniscus tear Chondromalacia of knee Medial meniscus tear Left knee DJD Left knee pain Chronic cholecystitis Obesity HLD (hyperlipidemia) Depression with anxiety GERD (gastroesophageal reflux disease) Sleep apnea HTN (hypertension) Surgical History Surgical History S/P arthroscopic knee surgery Left knee scope 10/31/24- Dr. Gamboa Hx laparoscopic cholecystectomy History of conization of cervix Family History Family History Father Hypertension Mother CHF (congestive heart failure) Social History Social History Years smoked: 30 Smoking status: Never smoker Tobacco type: cigarettes and e-cigarettes/vaping Smoking end date: 12/28/12 Additional smoking assessment comments: Currently vaping Alcohol intake: never Drinks per week: 5 Alcohol use details: 5 drinks monthly Substance use: current Substance use type: marijuana Other substance usage details: moses Living arrangements: with family Occupation/Education: occupation 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 HEAD: Normocephalic, atraumatic. ENT: Mucous membranes moist. CHEST: Clear to auscultation. No respiratory distress. HEART: Tachycardic and regular. Normal peripheral pulses. ABDOMEN: Soft, nontender, nondistended. Right CVA tenderness EXTREMITIES: Normal range of motion. No edema. SKIN: Warm, dry, no rash. NEURO: Alert and oriented x3. PSYCH: Normal mood and affect. Course Course Emergency Course: Patient resting comfortably. Hydrated. Received IV ceftriaxone. Blood work reassuring. Discharge home. Vital Signs Vital signs: Vital Signs Temperature 97.2 F L 08/15/25 10:16 Pulse Rate 68 08/15/25 10:16 Respiratory Rate 18 08/15/25 10:16 Blood Pressure 153/101 H 08/15/25 10:16 Pulse Oximetry 99 08/15/25 10:16 Oxygen Delivery Room Air 08/15/25 10:16 Temperature 97.2 F L 08/15/25 10:16 Pulse Rate 75 08/15/25 13:55 Respiratory Rate 16 08/15/25 13:55 Blood Pressure 175/87 H 08/15/25 13:55 Pulse Oximetry 98 08/15/25 13:55 Oxygen Delivery Room Air 08/15/25 10:49 [facility] Differential Diagnosis Differential Diagnosis: UTI, pyelonephritis, kidney stone, gastroenteritis, sepsis Lab Data [facility] Lab Attestation statement: I personally reviewed the patient's lab results. 08/15/25 12:22 08/15/25 12:22 Labs: Lab Results 08/15/25 08/15/25 Range/Units 10:25 12:22 WBC 9.0 (4.5-10.0) K/mm3 RBC 4.83 (4.2-5.4) M/mm3 Hgb 16.3 H (12.0-15.0) g/dL Hct 45.1 (37.0-47.0) % MCV 93.4 (80-100) fl MCH 33.7 (26-34) pg MCHC 36.1 H (32-36) g/dl RDW 12.7 (11.5-14.5) % Plt Count 337 (150-375) k/mm3 MPV 9.4 (7.4-10.4) fl Immature Gran % (Auto) 0.4 (0-0.5) % Neut % (Auto) 71.1 (45.5-73.1) % Lymph % (Auto) 21.8 (18.3-44.2) % Dawson % (Auto) 6.1 (2.6-8.5) % Eos % (Auto) 0.3 (0-4.4) % Baso % (Auto) 0.3 (0.2-1.2) % Lymph # (Auto) 1.96 (0.9-3.2) K/mm3 Dawson # (Auto) 0.6 (0.1-0.6) K/mm3 Eos # (Auto) 0.0 (0-0.3) K/mm3 Baso # (Auto) 0.0 (0.0-0.1) K/mm3 Abs Immat Gran (auto) 0.04 H (0.00-0.031) K/mm3 Absolute Neuts (auto) 6.4 (1.3-6.7) K/mm3 Absolute Nucleated RBC 0.000 (0.0-0.012) K/mm3 Nucleated RBC % 0.0 (0.0-0.2) % Sodium 137 (137-145) mmol/L Potassium 3.4 (3.4-5.0) mmol/L Chloride 104 (98-107) mmol/L Carbon Dioxide 24 (22-30) mmol/L Anion Gap 9 (4-12) mmol/L BUN 13 D (7-17) mg/dL Creatinine 0.74 (0.7-1.0) mg/dL Estim Creat Clear Calc 75 ml/min Estimated GFR > 60 (59 - ) Glucose 83 (65-110) mg/dL Lactic Acid 1.7 (0.7-2.0) mmol/L Calcium 8.7 (8.4-10.2) mg/dL Total Bilirubin 1.2 (0.2-1.3) mg/dL AST 93 H (14-36) U/L ALT 52 H (6-35) U/L Alkaline Phosphatase 104 (38-126) U/L Total Protein 7.0 (6.3-8.2) g/dL Albumin 4.0 (3.5-5.1) g/dL Urine Color Yellow (Yellow) Urine Appearance Cloudy H (Clear) Urine pH 5.5 (5.0-9.0) Ur Specific [place] 1.028 (1.001-1.035) Urine Protein 2+ H (Negative) mg/dL Urine Glucose (UA) Negative (Negative) mg/dL Urine Ketones Trace H (Negative) mg/dL Ur Blood (Man) 2+ H (Negative) Urine Nitrate Positive H (Negative) Urine Bilirubin Negative (Negative) Urine Urobilinogen 1.0 (<2.0) mg/dL Leukocyte Esterase Rfl 2+ H (Negative) SHELDON/UL Urine RBC 21-50 H (0-2) /hpf Urine WBC >100 H (0-3) /hpf Ur Squamous Epith Cells None seen (Few) /hpf Urine Bacteria 4+ H /hpf Urine Casts 3-5 Discharge Plan Discharge Clinical Impression: Pyelonephritis Patient Disposition: Home Condition: Stable Instructions: Antibiotic Form Additional Instructions: You should return to the emergency department if you develop severe nausea and vomiting and are unable to keep liquids down, if you develop severe back/flank or stomach pain, or if your symptoms are not clearly improving at home. Patient Language: Albanian Prescriptions: New cefpodoxime 200 mg tablet 200 mg PO BID Qty: 20 0RF Rx Instructions: must administer with a meal/food ondansetron 4 mg tablet,disintegrating 4 mg PO Q6H PRN (Reason: nausea and vomiting) Qty: 10 0RF hydrocodone-acetaminophen 5-325 mg tablet 1 tablet PO Q6H PRN (Reason: pain) Qty: 14 0RF No Action citalopram 40 mg tablet 40 mg PO DAILY metoprolol succinate 50 mg tablet extended release 24 hr 50 mg PO DAILY trazodone 100 mg tablet 100 mg PO HS Patient Comments: Says takes PRN amlodipine 10 mg tablet 10 mg PO DAILY furosemide 20 mg tablet 20 mg PO DAILY losartan 100 mg tablet 100 mg PO DAILY bupropion HCl 150 mg tablet extended release 24 hr 150 mg PO DAILY hydroxyzine HCl 25 mg tablet 25 mg PO DAILY clonazepam 0.5 mg tablet 0.5 mg PO DAILY PRN (Reason: Anxiety) acetaminophen 500 mg tablet 1,000 mg PO Q6H PRN (Reason: pain) aspirin 81 mg tablet 81 mg PO DAILY spironolactone 50 mg tablet 50 mg PO DAILY buspirone 15 mg Tablet 15 mg PO BID fenofibrate 160 mg tablet 160 mg PO DAILY famotidine [Acid Controller] 20 mg tablet 20 mg PO DAILY omeprazole 40 mg capsule,delayed release(DR/EC) See Rx Instructions .ROUTE .COMPLEX Qty: 60 3RF Dose Instruction: Take 1 capsule by mouth twice daily Rx Instructions: Take 1 capsule by mouth twice daily Follow-up/Referrals: Faith,SANDRA Webb [Primary Care Provider, Unknown] - 1 Week
== END 2025-08-15 14:38 | disposition home or self-care (01) ==
PROVIDERS: Emergency Provider Emergency Medicine; PCP Physician Assistant
DX: N12 Tubulo-interstitial nephritis, not specified as acute or chronic (principal); E78.5 Hyperlipidemia, unspecified; K21.9 Gastro-esophageal reflux disease without esophagitis; I10 Essential (primary) hypertension; F41.8 Other specified anxiety disorders
CPT/HCPCS: 36415; 80053; 81001; 83605; 85025; 87086; 87186; 96361; 96365; 96375; 99284; J0696; J2270; J2405; J7030